=== PATIENT | female | born 1980 | race Caucasian/White ===

== ENCOUNTER → 2016-03-28 | Outpatient (REF) | payer MEDICAID ==
[2016-03-28 12:40] LABS: BASO % 1.1 % (0.0-1.0); EOS % 1.1 % (0.0-3.0); LYMPH % 42.7 % (24.0-44.0); MEAN CORPUSCULAR HEMOGLOBIN 29.3 pg (27.0-33.0); MEAN CORPUSCULAR HGB CONC 33.8 g/dl (32.0-36.5); MEAN CORPUSCULAR VOLUME 86.8 fl (80.0-96.0); MONO # 0.2 K/mm3 (0.0-0.8); MONO % 4.6 % (0.0-5.0); NEUTROPHILS # 2.2 K/mm3 (1.8-7.7); NEUTROPHILS % 48.9 % (36.0-66.0); RED CELL DISTRIBUTION WIDTH 14.7 % (11.5-14.5); WHITE BLOOD COUNT 4.4 K/mm3 (4.0-10.0)
== END ==
LOC: M LABDRWAD 12:15
PROVIDERS: ATTEND Obstetrics & Gynecology
DX: Z85.42 Personal history of malignant neoplasm of other parts of uterus (principal)

== ENCOUNTER → 2016-05-09 | Outpatient (REF) | payer MEDICAID | LOC: M SFHCADAM 13:39 | PROVIDERS: ATTEND Physician Assistant Medical | DX: E78.1 Pure hyperglyceridemia (principal); R73.01 Impaired fasting glucose; E03.9 Hypothyroidism, unspecified; Z53.9 Procedure and treatment not carried out, unspecified reason ==

== ENCOUNTER → 2016-05-10 | Outpatient (REF) | payer MEDICAID ==
[2016-05-10 13:55] LABS: ALBUMIN 3.7 GM/DL (3.2-5.2); ALBUMIN/GLOBULIN RATIO 1.28 (1.00-1.93); ALKALINE PHOSPHATASE 67 U/L (45-117); ALT/SGPT 50 U/L (12-78); ANION GAP 9 MEQ/L (8-16); AST/SGOT 29 U/L (15-37); BILIRUBIN,TOTAL 0.4 MG/DL (0.2-1.0); BLOOD UREA NITROGEN 12 MG/DL (7-18); CALCIUM LEVEL 8.9 MG/DL (8.5-10.1); CARBON DIOXIDE LEVEL 26 MEQ/L (21-32); CHLORIDE LEVEL 107 MEQ/L (98-107); CHOLESTEROL LEVEL 167 MG/DL (<200); CREATININE FOR GFR 0.77 MG/DL (0.55-1.02); GLOMERULAR FILTRATION RATE > 60.0 (>60); GLUCOSE, FASTING 127 MG/DL (70-105); POTASSIUM SERUM 4.3 MEQ/L (3.5-5.1); SODIUM LEVEL 142 MEQ/L (136-145); TOTAL PROTEIN 6.6 GM/DL (6.4-8.2); TRIGLYCERIDES LEVEL 442 MG/DL (<150)
[2016-05-10 14:04] LABS: BASO % 0.7 % (0.0-1.0); EOS # 0.1 K/mm3 (0.0-0.50); EOS % 2.8 % (0.0-3.0); LARGE UNSTAINED CELL # 0.1 K/mm3 (0.0-0.4); LARGE UNSTAINED CELL % 2.6 % (0.0-4.0); LYMPH # 1.5 K/mm3 (1.5-4.5); LYMPH % 41.6 % (24.0-44.0); MEAN CORPUSCULAR HEMOGLOBIN 29.5 pg (27.0-33.0); MEAN CORPUSCULAR HGB CONC 33.8 g/dl (32.0-36.5); MEAN CORPUSCULAR VOLUME 87.2 fl (80.0-96.0); MONO # 0.2 K/mm3 (0.0-0.8); MONO % 4.7 % (0.0-5.0); NEUTROPHILS # 1.7 K/mm3 (1.8-7.7); NEUTROPHILS % 47.6 % (36.0-66.0); PLATELET COUNT, AUTOMATED 208 k/mm3 (150-450); RED CELL DISTRIBUTION WIDTH 14.1 % (11.5-14.5); WHITE BLOOD COUNT 3.5 K/mm3 (4.0-10.0)
== END ==
LOC: M SFHCADAM 09:02
PROVIDERS: ATTEND Physician Assistant Medical
DX: E78.1 Pure hyperglyceridemia (principal); R73.01 Impaired fasting glucose; E03.9 Hypothyroidism, unspecified

== ENCOUNTER 2016-07-11 14:16 | Inpatient (IN) | payer MEDICAID ==
[~2016-07-11] VITALS: Ht 170.2 cm; Wt 141.9 kg
[2016-07-11] MEDS ORDERED: SIMV20TA2 (14:23)
[2016-07-11] MEDS ORDERED: LEVO112T2 (14:23)
[2016-07-11] MEDS ORDERED: ASPI81TA85 PO (14:23)
[2016-07-11] MEDS ORDERED: TRAZ100T4 (14:23)
[2016-07-11] MEDS ORDERED: ONDANSETRON 4MG/2ML VIAL (J2405) IV ONE (14:45)
[2016-07-11] MEDS ORDERED: NS 1,000 ML IV ONE ×2 (14:45→18:00)
[2016-07-11] MEDS ORDERED: KETOROLAC 30 MG/ML VIAL (J1885) IV ONE (14:45)
[2016-07-11] MEDS ORDERED: ACETAMINOPHEN 325 MG TAB PO ONE (14:45)
[2016-07-11 15:18] LABS: MEAN CORPUSCULAR HEMOGLOBIN 30.3 pg (27.0-33.0); MEAN CORPUSCULAR HGB CONC 34.2 g/dl (32.0-36.5); MEAN CORPUSCULAR VOLUME 88.5 fl (80.0-96.0); PLATELET COUNT, AUTOMATED 155 k/mm3 (150-450); RED CELL DISTRIBUTION WIDTH 14.2 % (11.5-14.5); WHITE BLOOD COUNT 3.6 K/mm3 (4.0-10.0)
[2016-07-11 15:32] LABS: ALBUMIN 3.7 GM/DL (3.2-5.2); ALBUMIN/GLOBULIN RATIO 1.09 (1.00-1.93); BILIRUBIN,DIRECT 0.1 MG/DL (0.0-0.2); BILIRUBIN,TOTAL 0.5 MG/DL (0.2-1.0); CALCIUM LEVEL 9.1 MG/DL (8.5-10.1); CREATININE FOR GFR 1.14 MG/DL (0.55-1.02); GLOMERULAR FILTRATION RATE 56.8 (>60); POTASSIUM SERUM 3.8 MEQ/L (3.5-5.1); TOTAL PROTEIN 7.1 GM/DL (6.4-8.2)
[2016-07-11 15:35] LABS: BANDS 1 % (< 11); BASOPHILS 1 % (0-4)
[2016-07-11] MEDS ORDERED: PIPERACILLIN/TAZOBACTAM SOD 3.375 GM in D5W MINI-BAG PLUS 50 ML IV ONE (16:00)
[2016-07-11] MEDS ORDERED: ISOVUE-370 76% 100ML VIAL (Q9967) As Ordered ONE (16:06)
--- NOTE | 2016-07-11 17:39 | REP ---
CT abdomen and pelvis with IV but without oral contrast: History: Vomiting, fever, abdominal pain. No comparison imaging. The patient is apparently status post hysterectomy and cholecystectomy. CT contrast dose: 100 mL of Isovue [address] findings: Digital preliminary banking management consulting manager radiograph shows clips in the right and left lower quadrant and right upper quadrant. There is a moderate S-shaped thoracolumbar rotoscoliotic curve. The bowel gas pattern is unremarkable. The lung bases are clear. The liver and the spleen are normal in size homogeneous in texture. No adrenal lesion is seen on either side. There is an accessory splenule anteriorly. The pancreas is unremarkable. No retroperitoneal mass or adenopathy is seen. There is moderate bilateral hydronephrosis right lobe greater than left. No upper tract stones are seen. Pelvic CT images demonstrate a large cystic mass arising in the central pelvis. This measures 21.8 cm greatest dimension x 14.7 cm x 14.0 cm in transverse dimensions. This is seen in the mid pelvis extending nearly to the umbilicus in the central abdomen. At its cranial edge there are bilateral smaller daughter cyst projecting on either side superiorly and lateral to this. There are several follicle type cystic areas in the right ovary along the right superior lateral aspect of the lesion. The lesion most likely has a left ovarian origin. The bladder is compressed downward and anteriorly. The ureters are dilated to the mid pelvis at the level of this lesion indicating that they are compressed as well. There is no visible ascites or intra-abdominal adenopathy. There are some slightly prominent inguinal lymph nodes noted bilaterally. The largest of these is on the right measuring 2.4 x 1.5 x 1.5 cm. No bony destructive lesion is seen. There is some degenerative change at the symphysis pubis. There is a bilateral L5 spondylolysis without spondylolisthesis. Impression: 21.8 cm cystic mass, likely arising from the left ovary producing bilateral moderate hydronephrosis. Smaller cystic changes are seen in the right ovary. No ascites seen. Borderline adenopathy in the inguinal lymph nodes. Scoliosis. Signed by Yusef Oropeza MD 07/11/2016 06:02 P
--- NOTE | 2016-07-11 18:56 | REP ---
Pelvic sonography: History: Cystic mass left ovary question torsion. Findings: Exam quality is markedly inhibited due to patient motion. Transabdominal scanning is performed. Transvaginal scanning could not be accomplished. A large cystic mass is confirmed although less well seen than on CT scanning. Normal ovarian tissue was very difficult to visualize. Uterus is surgically absent. The right ovary could not be seen sonographically. No free fluid is noted. Cyst measurements by ultrasound are proximally 28.7 x 15.7 x 11.7 cm. Doppler flow assessment is unsatisfactory technically. Impression: Technically unsatisfactory Doppler flow assessment. The right ovary could not be visualized. Exam quality inhibited by lack of patient cooperation and the size of the cystic lesion. Ultrasound dimensions of the cystic mass are 11.7 x 28.7 x 15.7 cm. Signed by Yusef Oropeza MD 07/11/2016 08:46 P
[2016-07-11] MEDS ORDERED: LEVO112T25 PO (20:17)
[2016-07-11] MEDS ORDERED: ASPI1TAB PO (20:17)
[2016-07-11] MEDS ORDERED: TRAZ100T4 PO (20:17)
[2016-07-11] MEDS ORDERED: SIMV20TA2 PO (20:17)
[2016-07-11 21:41] LABS: ERYTHROCYTE SEDIMENTATION RATE 15 mm/hr (0-20)
--- NOTE | 2016-07-11 21:49 | HPE ---
DATE OF ADMISSION: 07/11/2016 PRIMARY CARE PROVIDER: Danyell Santamaria PA-C HISTORY OF PRESENT ILLNESS: This patient is a 36-year-old female with a past medical history significant for autism, hypercholesterolemia, hypothyroidism, morbid obesity, impaired fasting sugars, cervical cancer status post hysterectomy, who was brought in to [facility] on 07/11/2016, by a family member for fever and vomiting. Patient is nonverbal, not able to answer questions or follow commands. Information was obtained from patient's sister. Patient's caregiver is her father. Per family member, patient was at her baseline yesterday. This morning, patient started having temperature of 100.4, patient also started having frequent vomiting, which is not normal for her, and patient was brought to [facility] for further evaluation. Not sure if patient has recent sick contact. Based on patient's behavior and expression, patient's family member thinks patient was in pain previously, not at the time of encounter, patient did not have pain. ALLERGIES: SULFA, OXYCODONE. PAST MEDICAL HISTORY: 1. Autistic disorder, patient is nonverbal. 2. Hyperlipidemia. 3. Hypothyroidism. 4. Morbid obesity. 5. Impaired fasting glucose. 6. Cervical cancer, resulting in hysterectomy. PAST SURGICAL HISTORY: 1. Hysterectomy in 1999. 2. Cholecystectomy in 2009. SOCIAL HISTORY: No smoking. No alcohol use. No recreational drug use. Patient lives with her father and the father is the caregiver. REVIEW OF SYSTEMS: Unable to obtain due to patient's baseline mental status. Per family member, patient did experience fever, no chills. No sign of difficulty breathing or chest pain. Patient did have some pain, possibly from the abdomen, but it is intermittent, resolved spontaneously. Patient also noted to have worsening swelling and redness of the right lower extremity. OBJECTIVE: VITAL SIGNS: Temperature 99.9, pulse 96, respirations 20, blood pressure 104/60, pulse oximetry 96% in room air. GENERAL: Patient is nonverbal. Patient is awake, alert, not able to answer questions or follow commands. HEENT: Poor oral dentition. Otherwise, normocephalic, atraumatic. Extraocular motors grossly intact. CARDIOVASCULAR: Positive S1, S2, regular rate. LUNGS: Clear to auscultation bilaterally. ABDOMEN: Morbidly obese. Soft, nontender, nondistended. Bowel sounds present. EXTREMITIES: There is some erythema and swelling and warmth at the right anterior douglas. Patient grimaces when pushing on the right douglas. No lower extremity edema bilaterally. No sign of cyanosis. LABORATORY DATA: WBC 3.6, hemoglobin 13.6, hematocrit 39.7, platelet count 155. Sodium 139, potassium 3.8, chloride 104, carbon dioxide 25, BUN 13, creatinine 1.14, GFR is 56.8, fasting glucose 124, lactic acid 3.4, calcium 9.1, total bilirubin 0.5, direct bilirubin 0.1, AST 30, ALT 46, alkaline phosphatase 72, total protein 7.1, albumin 3.7, lipase 165. Urinalysis is negative. Microbiology: Blood cultures pending times two sets. Urine culture is pending. IMAGING STUDIES: CT abdomen and pelvis with contrast shows 21.8 cm cystic mass, most likely arising from the left ovary producing bilateral moderate hydronephrosis. Smaller cystic changes are seen in the right ovary. No ascites seen. Pelvic ultrasound showed technically unsatisfactory Doppler flow assessment. The right ovary could not be visualized. ASSESSMENT AND PLAN: 1. Nausea and vomiting with fever. Patient will be admitted to medical/surgical floor under inpatient status. We are still looking for source of patient's symptoms. Patient does have cellulitis of right lower extremity. Patient also has ovarian cyst-like mass. Patient is started on Teflaro for the cellulitis. Patient will be on fluid support. Patient will have Tylenol for fever. Obstetrics/gynecology (MANAGER INVENTORY CONTROL) will be consulted. At this moment, patient will follow with inflammatory markers. 2. Left ovarian cystic mass. CT abdomen and pelvis shows the size is 21.8 cm. Will consult MANAGER INVENTORY CONTROL. 3. Bilateral moderate hydronephrosis. Patient started having acute kidney injury most likely secondary to the obstruction from the ovarian cystic-like mass. Currently patient's creatinine is 1.14, GFR is 56.8. At baseline, patient has normal renal function. 4. History of impaired glucose. Patient will be on consistent carbohydrate diet. Patient has an A1c of 6.3 in May 2016. 5. History of cervical cancer status post hysterectomy. 6. Morbid obesity. 7. Hypothyroidism. Patient is on Synthroid. Will follow with thyroid stimulating hormone (TSH) in the morning. 8. Hyperlipidemia. Patient is on simvastatin. 9. Autism, causing patient to be nonverbal. No mental capacity. Not able to follow commands. 10. Deep venous thrombosis (DVT) prophylaxis. Patient is on heparin.
[2016-07-11 22:35] VITALS: BP 130/85
[2016-07-11] MEDS: HEPARIN SOD (PORCINE) 5000 UNITS/ML VIAL SC SCH (23:06)
[2016-07-11] MEDS: NS 1,000 ML IV SCH (23:06)
[2016-07-11] MEDS: SIMVASTATIN 20 MG TAB PO SCH (23:06)
[2016-07-11] MEDS: traZODone 100 MG TAB PO SCH (23:06)
[2016-07-11] MEDS: CEFTAROLINE FOSAMIL 600 MG in D5W MINI-BAG PLUS 50 ML IV SCH (23:07)
[2016-07-12] MEDS: ACETAMINOPHEN TAB 650MG DOSE (2X325MG) PO PRN ×3 (01:45→18:16)
[2016-07-12] MEDS ORDERED: ACETAMINOPHEN TAB 650MG DOSE (2X325MG) PO ONE (03:30)
[2016-07-12 05:05] VITALS: BP 119/58
[2016-07-12] MEDS: LEVOTHYROXINE 0.112 MG TAB (112 MCG) PO SCH (06:17)
[2016-07-12] MEDS: HEPARIN SOD (PORCINE) 5000 UNITS/ML VIAL SC SCH ×3 (06:18→21:50)
[2016-07-12 06:27] LABS: MEAN CORPUSCULAR HEMOGLOBIN 31.2 pg (27.0-33.0); MEAN CORPUSCULAR HGB CONC 34.1 g/dl (32.0-36.5); MEAN CORPUSCULAR VOLUME 91.6 fl (80.0-96.0); RED CELL DISTRIBUTION WIDTH 14.4 % (11.5-14.5); WHITE BLOOD COUNT 4.6 K/mm3 (4.0-10.0)
[2016-07-12] MEDS: NS 1,000 ML IV SCH ×2 (06:38→18:51)
[2016-07-12 07:01] LABS: CALCIUM LEVEL 7.7 MG/DL (8.5-10.1); CREATININE FOR GFR 1.28 MG/DL (0.55-1.02); GLOMERULAR FILTRATION RATE 49.7 (>60)
[2016-07-12] MEDS: ASPIRIN 81 MG ENTERIC TAB PO SCH (09:26)
--- NOTE | 2016-07-12 09:48 | IPNPDOC ---
Subjective Date Seen The patient was seen on 07/12/16. Subjective Chief Complaint/HPI The patient is a 36-year-old female admitted with a reason for visit of Ovarian Mass, Left; Vomiting. Events since last encounter Initially brought in to ED for RLE cellulitis and vomiting. Found to have large LEFT ovarian cystic mass. OBGYN consult with Dr. Fraser pending. General: Reports: ROS Unobtainable, Other Symptoms (patient is autistic and non -verbal) Constitutional: Reports: Fever Skin: Reports: Rash, Other (RLE cellulitis with erythema and warmth), Denies: Lesions, Breakdown Pulmonary: Denies: Dyspnea, Cough Gastrointestinal: Reports: Vomiting, Other Symptoms (decreased po intake) Genitourinary: Denies: Frequency Psych: Reports: Mood Normal (no change in mood per father. ) Objective Physical Examination General Exam: Positive: Alert, No Acute Distress Neck Exam: Positive: Supple, Negative: JVD, thyromegaly Chest Exam: Positive: Clear to auscultation, Normal air movement Heart Exam: Positive: Rate Normal, Regular Rhythm, Normal S1, Normal S2, Negative: Murmurs, Rubs Abdomen Exam: Positive: Normal bowel sounds, Soft, Negative: Tenderness, Hepatospenomegaly Skin Exam: Positive: Other skin issue (RLE with erythema, warmth, tenderness and swelling. ), Negative: Rash, Breakdown Psych Exam: Positive: Mental status NL, Mood NL, Oriented x 3 Assessment /Plan Problems (1) Sepsis Status: Acute Problem Text: Ceftaroline day #2. lactic acid trending down. IVF maintained. + fevers. no elevated WBC. Will obtain imaging of foot and ankle to eval source. + blood cultures: gram + cocci in clusters. Father states will not stay still long enough for MRI. (2) Cellulitis of right lower leg Status: Acute Problem Text: Will obtain imaging of foot and ankle to eval source. + blood cultures: gram + cocci in clusters. Father states will not stay still long enough for MRI. D/W Dr Cardona. He does not believe the metallic FB is likely related to the leg infection. More harm than benefit likely by surgical exploration to retrieve. (3) Ovarian mass, left Status: Acute Problem Specific Plan: Consult Specialist Problem Text: IMAGING SYSTEM ADMINISTRATOR eval pending. (4) Hydronephrosis Problem Text: secondary to ovarian mass per CT report (5) Vomiting Status: Acute Problem Specific Plan: Monitor Clinically (6) Impaired fasting glucose Problem Text: Hgba1c of 6.3 noted in 05/2016 (7) Hypothyroidism Status: Chronic Response to Treatment: Stable Problem Text: stable TSH (8) History of cervical cancer Status: Chronic Problem Text: s/p hysterectomy after abnormal pap smear in 2009. Hx of uterine fibroids. Plan/VTE VTE Prophylaxis Ordered?: Yes (Heparin) Plan IVF: Continue Diagnostics: MRI (MRI of leg might be helpful but would require sedation so not ordered at this time depending on clinical course.) VS, I&O, 24H, Fishbone Vital Signs/I&O Vital Signs Date Time Temp Pulse Resp B/P (MAP) Pulse Ox O2 Delivery O2 Flow Rate FiO2 07/12/16 05:05 100.7 82 18 119/58 (78) 95 Room Air I&O- Last 24 Hours up to 6 AM 07/12/16 06:00 Intake Total 390 ml Output Total 130 ml Balance 260 ml Laboratory Data 24H LABS Laboratory Tests 2 07/11/16 14:56: Neutrophils 86H, Band Neutrophils 1, Lymphocytes (Manual) 8L, Monocytes (Manual ) 2, Basophils (Manual) 1, Metamyelocytes 1H, Atypical Lymphocytes 1, Platelet Estimate NORMAL, Red Blood Cell Morphology NORMAL, Erythrocyte Sedimentation Rate 15, Anion Gap 10, Glomerular Filtration Rate 56.8L, Lactic Acid Level 4.2*H , Calcium Level 9.1, Aspartate Amino Transf (AST/SGOT) 30, Alanine Aminotransferase (ALT/SGPT) 46, Alkaline Phosphatase 72, Total Bilirubin 0.5, Direct Bilirubin 0.1, C-Reactive Protein, Quantitative 1.37H, Total Protein 7.1 , Albumin 3.7, Albumin/Globulin Ratio 1.09, Lipase 165 07/11/16 16:35: Urine Appearance CLEAR, Urine Color YELLOW, Urine pH 7.0, Urine Specific [place] 1.010, Urine Protein NEGATIVE, Urine Glucose (UA) NEGATIVE, Urine Ketones NEGATIVE, Urine Urobilinogen 0.2, Urine Bilirubin NEGATIVE, Urine Leukocyte Esterase NEGATIVE, Urine Blood NEGATIVE, Urine Nitrite NEGATIVE, Urine WBC (Auto) 1, Urine RBC (Auto) 1, Urine Hyaline Casts (Auto) 0, Urine Bacteria (Auto) 1+H, Urine Squamous Epithelial Cells 1, Urine Sperm (Auto) 07/11/16 19:22: Lactic Acid Followup at 4 Hours 3.4*H 07/12/16 06:07: Anion Gap 8, Glomerular Filtration Rate 49.7L, Calcium Level 7.7#L, Blood Urea Nitrogen 16, Creatinine 1.28H, Sodium Level 140, Potassium Level 4.0, Chloride Level 108H, Carbon Dioxide Level 24, Thyroid Stimulating Hormone (TSH) 0.413 CBC/BMP Laboratory Tests 07/11/16 14:56 Red Blood Count 4.49, Mean Corpuscular Volume 88.5, Mean Corpuscular Hemoglobin 30.3, Mean Corpuscular Hemoglobin Concent 34.2, Red Cell Distribution Width 14.2 07/12/16 06:07 Red Blood Count 4.20, Mean Corpuscular Volume 91.6, Mean Corpuscular Hemoglobin 31.2, Mean Corpuscular Hemoglobin Concent 34.1, Red Cell Distribution Width 14.4 , Calcium Level 7.7 #L Microbiology Microbiology 07/11/16 Blood Culture - Preliminary, Resulted 07/11/16 Blood Culture - Preliminary, Resulted 07/11/16 Urine Culture, Received Pending Ruthie Lagunas July 12, 2016 09:48 Ramana Morales MD July 12, 2016 12:45
--- NOTE | 2016-07-12 10:01 | REP ---
Right ankle series: Four views. History: Cellulitis and swelling. Right foot and ankle pain. Findings: Four views of the right ankle demonstrate diffuse swelling of the subcutaneous soft tissues of the distal calf and ankle. Ankle mortise is intact. No bony erosive changes seen. There is Achilles and plantar calcaneal spurring. Impression: Diffuse soft tissue swelling. Heel spurs. No acute abnormality. Signed by Yusef Oropeza MD 07/12/2016 10:27 A
--- NOTE | 2016-07-12 10:02 | REP ---
RIGHT FOOT SERIES: Four views. HISTORY: Cellulitis and swelling. Pain. FINDINGS: Four views right foot show overall normal mineralization. There is diffuse soft tissue swelling fairly marked over the dorsum of the forefoot and midfoot. Achilles and plantar calcaneal spurring is noted. There is a very thin wire-like metallic foreign body in the volar soft tissues of the midfoot measuring 5 mm in greatest dimension. No soft tissue gas is seen. There is extensive vascular calcification including the intermetatarsal and interdigital arteries. Osteoarthritis is seen with spurring at the first MTP joint. IMPRESSION: 1. Diffuse marked soft tissue swelling. No soft tissue gas seen. 2. Heel spurs and first MTP joint spurring. 3. 5 mm wire-like metallic foreign body in the volar soft tissues of the midfoot. Signed by Yusef Oropeza MD 07/12/2016 10:26 A
[2016-07-12] MEDS: CEFTAROLINE FOSAMIL 600 MG in D5W MINI-BAG PLUS 50 ML IV SCH ×2 (12:17→23:48)
[2016-07-12 14:00] VITALS: BP 149/84
[2016-07-12 18:24] VITALS: BP 152/60
[2016-07-12] MEDS: IBUPROFEN 400 MG TAB PO PRN (18:49)
[2016-07-12] MEDS: SIMVASTATIN 20 MG TAB PO SCH (21:49)
[2016-07-12] MEDS: traZODone 100 MG TAB PO SCH (21:49)
[2016-07-12 22:00] VITALS: BP 100/52
--- NOTE | 2016-07-12 22:07 | CR ---
DATE OF CONSULTATION: 07/12/2016 REASON FOR CONSULTATION: Right lower extremity cellulitis with suspected foreign body to right foot. Karen Loya is a 36-year-old nonverbal female who was admitted to the hospital on 07/11/2016 due to fevers and vomiting. She was noted to have swelling and redness to her right leg. She has been started on intravenous (IV) antibiotics. An x-ray was taken, which showed small metallic foreign body to the right foot, for which I was consulted. Patient is nonverbal, so history is obtained via patient's sister, who was present, and chart review. PAST MEDICAL HISTORY: Significant for: 1. Autism. 2. Hyperlipidemia. 3. Hypothyroidism. 4. Morbid obesity. 5. Impaired fasting glucose. 6. Cervical cancer. PAST SURGICAL HISTORY: 1. Hysterectomy. 2. Cholecystectomy. ALLERGIES: SULFA and OXYCODONE. SOCIAL HISTORY: Negative for smoking and alcohol use. REVIEW OF SYSTEMS: Positive for fevers. VITAL SIGNS: Maximal temperature from admission is 104.1, current temperature 99.4. Vital signs are stable. Labs are reviewed. White blood cell count is 4.6. ESR is 15. Lactic acid highest was 4.2, most recent was 3.4. Creatinine is 1.28, GFR is 49.7. Lower extremity examination: There is moderate edema to both lower extremities, more significant on the right side. There is erythema extending from the ankle to below the knee with some blistering and serous drainage noted. There is no erythema to the plantar foot. There are no open sores noted to this area. No crepitance is palpated. No foreign object is palpated. No entry site is noted. There is pain most reproducible to the anterior leg. No significant pain is produced with palpation of the plantar foot. ASSESSMENT: A 36-year-old female with right leg cellulitis. Images are reviewed. There is noted edema to the foot and ankle, most present dorsally and anteriorly. There is a small, apparently metallic 5 mm object noted to the plantar lateral mid foot. This appears to be approximately 1 cm deep to the skin. PLAN: Would continue current antibiotics, pending speciation. The blood cultures are positive for gram-positive cocci in pairs and chains. At present she is receiving ceftaroline. Compression warps for right leg is ordered as well as elevation. Patient does appear to be unwilling to stay in bed, so would keep her foot elevated with a chair while she is seated. At this time would not recommend trying to remove foreign body, as it does not seem apparently the cause for this infection, and there is good chance of not being able to identify it in the operating room. Thank you for consultation. Will follow.
[2016-07-13] MEDS: NS 1,000 ML IV SCH ×2 (05:50→12:43)
[2016-07-13] MEDS: LEVOTHYROXINE 0.112 MG TAB (112 MCG) PO SCH (05:50)
[2016-07-13] MEDS: HEPARIN SOD (PORCINE) 5000 UNITS/ML VIAL SC SCH (05:51)
[2016-07-13 06:00] VITALS: BP 102/60
[2016-07-13 06:16] LABS: MEAN CORPUSCULAR HEMOGLOBIN 30.4 pg (27.0-33.0); MEAN CORPUSCULAR HGB CONC 33.8 g/dl (32.0-36.5); MEAN CORPUSCULAR VOLUME 89.8 fl (80.0-96.0); RED CELL DISTRIBUTION WIDTH 14.3 % (11.5-14.5); WHITE BLOOD COUNT 2.7 K/mm3 (4.0-10.0)
[2016-07-13 06:20] LABS: ANION GAP 12 MEQ/L (8-16); BLOOD UREA NITROGEN 13 MG/DL (7-18); CALCIUM LEVEL 7.1 MG/DL (8.5-10.1); CARBON DIOXIDE LEVEL 20 MEQ/L (21-32); CHLORIDE LEVEL 108 MEQ/L (98-107); CREATININE FOR GFR 0.98 MG/DL (0.55-1.02); GLOMERULAR FILTRATION RATE > 60.0 (>60); GLUCOSE, FASTING 138 MG/DL (70-105); POTASSIUM SERUM 3.9 MEQ/L (3.5-5.1); SODIUM LEVEL 140 MEQ/L (136-145)
[2016-07-13] MEDS: ASPIRIN 81 MG ENTERIC TAB PO SCH (09:55)
[2016-07-13] MEDS: CEFTAROLINE FOSAMIL 600 MG in D5W MINI-BAG PLUS 50 ML IV SCH ×2 (12:28→23:49)
[2016-07-13] MEDS: ACETAMINOPHEN TAB 650MG DOSE (2X325MG) PO PRN (12:28)
[2016-07-13 12:40] VITALS: BP 139/72
[2016-07-13] MEDS: IBUPROFEN 400 MG TAB PO PRN ×2 (13:41→23:48)
[2016-07-13 14:00] VITALS: BP 98/53
[2016-07-13] MEDS: SIMVASTATIN 20 MG TAB PO SCH (20:41)
[2016-07-13] MEDS: traZODone 100 MG TAB PO SCH (20:41)
[2016-07-13 22:00] VITALS: BP 122/76
--- NOTE | 2016-07-14 00:57 | IPNPDOC ---
Subjective Date Seen The patient was seen on 07/14/16. Subjective Chief Complaint/HPI The patient is a 36-year-old female admitted with a reason for visit of Ovarian Mass, Left; Vomiting. Events since last encounter Seen with father present. Patient was seen three times on 07/13 -- for a wound check when the dressing was changed, for a regular exam, and when she became febrile again. Father felt that her leg was improving slowly. General: Reports: ROS Unobtainable Objective Physical Examination General Exam: Positive: Alert, No Acute Distress Neck Exam: Positive: Supple, Negative: JVD, thyromegaly Chest Exam: Positive: Clear to auscultation, Normal air movement Heart Exam: Positive: Rate Normal, Regular Rhythm, Normal S1, Normal S2, Negative: Murmurs, Rubs Abdomen Exam: Positive: Normal bowel sounds, Soft, Negative: Tenderness, Hepatospenomegaly Extremity Exam: Positive: Edema (R > L) Skin Exam: Positive: Other skin issue (RLE with erythema, warmth, tenderness and swelling. ), Negative: Rash, Breakdown Psych Exam: Positive: Mental status NL, Mood NL, Oriented x 3 Assessment /Plan Problems (1) Sepsis Status: Acute Problem Text: 07/13 -- patient continues on ceftaroline. She continues to spike fevers. Next set of blood cultures is negative. Will obtain echocardiogram if patient is febrile again tomorrow. Ceftaroline day #2. lactic acid trending down. IVF maintained. + fevers. no elevated WBC. Will obtain imaging of foot and ankle to eval source. + blood cultures: gram + cocci in clusters. Father states will not stay still long enough for MRI. (2) Cellulitis of right lower leg Status: Acute Problem Text: Will obtain imaging of foot and ankle to eval source. + blood cultures: gram + cocci in clusters. Father states will not stay still long enough for MRI. D/W Dr Cardona. He does not believe the metallic FB is likely related to the leg infection. More harm than benefit likely by surgical exploration to retrieve. (3) Ovarian mass, left Status: Acute Problem Specific Plan: Consult Specialist Problem Text: MEDICAL DATA ANALYST eval pending. (4) Hydronephrosis Problem Text: secondary to ovarian mass per CT report (5) Vomiting Status: Acute Problem Specific Plan: Monitor Clinically (6) Impaired fasting glucose Problem Text: Hgba1c of 6.3 noted in 05/2016 (7) Hypothyroidism Status: Chronic Response to Treatment: Stable Problem Text: stable TSH (8) History of cervical cancer Status: Chronic Problem Text: s/p hysterectomy after abnormal pap smear in 2009. Hx of uterine fibroids. Plan/VTE VTE Prophylaxis Ordered?: Yes (Heparin) Plan IVF: Continue Diagnostics: MRI (MRI of leg might be helpful but would require sedation so not ordered at this time depending on clinical course.) VS, I&O, 24H, Fishbone Vital Signs/I&O Vital Signs Date Time Temp Pulse Resp B/P (MAP) Pulse Ox O2 Delivery O2 Flow Rate FiO2 07/13/16 22:00 97.9 85 19 122/76 (91) 90 Room Air I&O- Last 24 Hours up to 6 AM 07/14/16 06:00 Intake Total 1990 ml Output Total 200 ml Balance 1790 ml Laboratory Data 24H LABS Laboratory Tests 2 07/13/16 05:30: Anion Gap 12, Glomerular Filtration Rate > 60.0, Blood Urea Nitrogen 13, Creatinine 0.98, Sodium Level 140, Potassium Level 3.9, Chloride Level 108H, Carbon Dioxide Level 20L, Calcium Level 7.1L 07/13/16 13:41: CBC/BMP Laboratory Tests 07/13/16 05:30 Red Blood Count 4.19, Mean Corpuscular Volume 89.8, Mean Corpuscular Hemoglobin 30.4, Mean Corpuscular Hemoglobin Concent 33.8, Red Cell Distribution Width 14.3 , Calcium Level 7.1 L Microbiology Microbiology 07/12/16 Blood Culture - Preliminary, Resulted No growth after 24 hours . All specim... 07/12/16 Blood Culture - Preliminary, Resulted No growth after 24 hours . All specim... 07/11/16 Blood Culture - Preliminary, Resulted Streptococcus Group G 07/11/16 Blood Culture - Preliminary, Resulted Streptococcus Group G 07/11/16 Urine Culture - Final, Complete SAUL ROSALES DO July 14, 2016 00:56
[2016-07-14] MEDS: ACETAMINOPHEN TAB 650MG DOSE (2X325MG) PO PRN (01:43)
[2016-07-14] MEDS: NS 1,000 ML IV SCH ×3 (03:14→13:33)
[2016-07-14] MEDS: LEVOTHYROXINE 0.112 MG TAB (112 MCG) PO SCH (05:39)
[2016-07-14 05:58] LABS: MEAN CORPUSCULAR HEMOGLOBIN 30.9 pg (27.0-33.0); MEAN CORPUSCULAR HGB CONC 34.8 g/dl (32.0-36.5); MEAN CORPUSCULAR VOLUME 88.7 fl (80.0-96.0); RED CELL DISTRIBUTION WIDTH 14.2 % (11.5-14.5); WHITE BLOOD COUNT 2.1 K/mm3 (4.0-10.0)
[2016-07-14 06:00] VITALS: BP 107/53
[2016-07-14 06:15] LABS: ANION GAP 7 MEQ/L (8-16); BLOOD UREA NITROGEN 10 MG/DL (7-18); CALCIUM LEVEL 7.8 MG/DL (8.5-10.1); CARBON DIOXIDE LEVEL 22 MEQ/L (21-32); CHLORIDE LEVEL 110 MEQ/L (98-107); CREATININE FOR GFR 0.94 MG/DL (0.55-1.02); GLOMERULAR FILTRATION RATE > 60.0 (>60); GLUCOSE, FASTING 158 MG/DL (70-105); POTASSIUM SERUM 3.8 MEQ/L (3.5-5.1); SODIUM LEVEL 139 MEQ/L (136-145)
--- NOTE | 2016-07-14 06:54 | REP ---
CHEST, TWO VIEWS: Two views of the chest are performed and compared to prior study of 05/31/2014. Chronic interstitial opacities are seen in the lower lung zones without evidence of acute infiltrate. Cardiac silhouette appears prominent. Mediastinal silhouette is unchanged. There is curvature of the thoracic spine convex to the right. IMPRESSION: Chronic interstitial changes. No evidence of acute infiltrate. Signed by Jonathan Shah MD 07/14/2016 07:49 P
[2016-07-14] MEDS: IBUPROFEN 400 MG TAB PO PRN ×2 (09:01→19:23)
[2016-07-14] MEDS: ASPIRIN 81 MG ENTERIC TAB PO SCH (09:01)
[2016-07-14 11:26] LABS: REASON FOR REVIEW COMPREHENSIVE REVIEW
[2016-07-14] MEDS ORDERED: cefTRIAXone SOD 1 GM in D5W MINI-BAG PLUS 50 ML IV SCH (12:00)
[2016-07-14 14:00] VITALS: BP 142/68
[2016-07-14 14:04] LABS: INR 0.96
[2016-07-14] MEDS ORDERED: PROMETHAZINE 25 MG TAB PO PRN (15:30)
[2016-07-14] MEDS ORDERED: ISOVUE-370 76% 100ML VIAL (Q9967) As Ordered ONE (16:07)
[2016-07-14] MEDS: PENICILLIN G POTASSIUM IV 2.5 MU in D5W 100 ML IV SCH (17:27)
[2016-07-14] MEDS: EUCERIN 120GM CREAM EXT SCH (20:59)
[2016-07-14] MEDS: SIMVASTATIN 20 MG TAB PO SCH (21:00)
[2016-07-14] MEDS: traZODone 100 MG TAB PO SCH (21:00)
[2016-07-14] MEDS: MICONAZOLE 2 % POWDER (DESENEX) TOP SCH (21:00)
[2016-07-14 22:00] VITALS: BP 127/79
--- NOTE | 2016-07-14 22:22 | IPNPDOC ---
Subjective Date Seen The patient was seen on 07/14/16. Subjective Chief Complaint/HPI The patient is a 36-year-old female admitted with a reason for visit of Ovarian Mass, Left; Vomiting. Events since last encounter Patient continues to develop fevers. Father feels that when afebrile she is at close to her baseline behavior. Her RLE looks worse than yesterday, and father feels that she is more uncomfortable when walking on it to the bathroom. General: Reports: ROS Unobtainable Objective Physical Examination General Exam: Positive: Alert, No Acute Distress Neck Exam: Positive: Supple, Negative: JVD, thyromegaly Chest Exam: Positive: Clear to auscultation, Normal air movement Heart Exam: Positive: Rate Normal, Regular Rhythm, Normal S1, Normal S2, Negative: Murmurs, Rubs Abdomen Exam: Positive: Normal bowel sounds, Soft, Negative: Tenderness, Hepatospenomegaly Extremity Exam: Positive: Edema (R > L) Skin Exam: Positive: Other skin issue (RLE with erythema, warmth, tenderness and swelling. Area of erythema now extends to the thigh. Perhaps the foot is less erythematous than yesterday.), Negative: Rash, Breakdown Psych Exam: Positive: Mood NL Assessment /Plan Problems (1) Sepsis Status: Acute Problem Text: 07/14 -- Echo ordered. Antibiotic susceptibilities available, and I changed to ceftriaxone. Consulted Dr. Lombardo, who recommended penicillin, which I ordered. Later in the evening I got a call that IV access was lost and nursing was struggling to obtain another line. As she had received a dose of ceftriaxone, I stated that it was OK to wait until day team was available to try and reestablish access. Nursing requested a PICC line, and I certainly don' t think that is a good idea until we have echo results; would prefer to avoid if we can get a peripheral IV. 07/13 -- patient continues on ceftaroline. She continues to spike fevers. Next set of blood cultures is negative. Will obtain echocardiogram if patient is febrile again tomorrow. Ceftaroline day #2. lactic acid trending down. IVF maintained. + fevers. no elevated WBC. Will obtain imaging of foot and ankle to eval source. + blood cultures: gram + cocci in clusters. Father states will not stay still long enough for MRI. (2) Cellulitis of right lower leg Status: Acute Problem Text: 07/14 -- Discussed with Dr. Lombardo, who is consulted. CT of lower extremity ordered. Will obtain imaging of foot and ankle to eval source. + blood cultures: gram + cocci in clusters. Father states will not stay still long enough for MRI. D/W Dr Cardona. He does not believe the metallic FB is likely related to the leg infection. More harm than benefit likely by surgical exploration to retrieve. (3) Ovarian mass, left Status: Acute Problem Specific Plan: Consult Specialist Problem Text: DIRECTOR CORPORATE eval pending. (4) Hydronephrosis Problem Text: secondary to ovarian mass per CT report (5) Vomiting Status: Acute Problem Specific Plan: Monitor Clinically (6) Impaired fasting glucose Problem Text: Hgba1c of 6.3 noted in 05/2016 (7) Hypothyroidism Status: Chronic Response to Treatment: Stable Problem Text: stable TSH (8) History of cervical cancer Status: Chronic Problem Text: s/p hysterectomy after abnormal pap smear in 2009. Hx of uterine fibroids. (9) Pancytopenia Problem Text: 07/14 -- peripheral smear and LDH ordered; echo pending; aPTT and PT both within normal limits. Anti-heparin antibodies ordered yesterday. This may be a side effect of Teflaro (medication changed this a.m.) Plan/VTE VTE Prophylaxis Ordered?: Yes (Heparin) Plan IVF: Continue Diagnostics: MRI (MRI of leg might be helpful but would require sedation so not ordered at this time depending on clinical course.) VS, I&O, 24H, Fishbone Vital Signs/I&O Vital Signs Date Time Temp Pulse Resp B/P (MAP) Pulse Ox O2 Delivery O2 Flow Rate FiO2 07/14/16 19:36 102.5 07/14/16 14:00 85 18 142/68 (92) 95 Room Air I&O- Last 24 Hours up to 6 AM 07/14/16 06:00 Intake Total 3480 ml Output Total 500 ml Balance 2980 ml Laboratory Data 24H LABS Laboratory Tests 2 07/14/16 05:26: Differential Slide Review Report, Differential Pathologist's Review COMPREHENSIVE REVIEW, Peripheral Blood Smear Path Consult PERIPHERAL SMEAR, Anion Gap 7L, Glomerular Filtration Rate > 60.0, Blood Urea Nitrogen 10, Creatinine 0.94, Sodium Level 139, Potassium Level 3.8, Chloride Level 110H, Carbon Dioxide Level 22, Calcium Level 7.8L, Lactate Dehydrogenase 542H, C- Reactive Protein, Quantitative 24.90H 07/14/16 13:30: Prothrombin Time 12.9, Prothromb Time International Ratio 0.96, Activated Partial Thromboplast Time 28.9 07/14/16 14:05: Urine Appearance HAZY, Urine Color MONALISA, Urine pH 5.0, Urine Specific [place] 1.024, Urine Protein 2+H, Urine Glucose (UA) 3+H, Urine Ketones NEGATIVE, Urine Urobilinogen 2.0H, Urine Bilirubin NEGATIVE, Urine Leukocyte Esterase NEGATIVE, Urine Blood 1+H, Urine Nitrite NEGATIVE, Urine WBC (Auto) 9H, Urine RBC (Auto) 4H, Urine Hyaline Casts (Auto) 0, Urine Bacteria (Auto) NEGATIVE, Urine Squamous Epithelial Cells 2, Urine Amorphous Sediment SMALLH, Urine Mucus (Auto ) SMALL, Urine Sperm (Auto) CBC/BMP Laboratory Tests 07/14/16 05:26 Red Blood Count 3.63 L, Mean Corpuscular Volume 88.7, Mean Corpuscular Hemoglobin 30.9, Mean Corpuscular Hemoglobin Concent 34.8, Red Cell Distribution Width 14.2, Calcium Level 7.8 L Microbiology Microbiology 07/12/16 Blood Culture - Preliminary, Resulted No Growth after 48 hours. All Specime... 07/12/16 Blood Culture - Preliminary, Resulted No Growth after 48 hours. All Specime... 07/11/16 Blood Culture - Final, Complete Streptococcus Group G 07/11/16 Blood Culture - Final, Complete Streptococcus Group G 07/14/16 Urine Culture, Received Pending 07/11/16 Urine Culture - Final, Complete SAUL ROSALES DO July 14, 2016 22:22
--- NOTE | 2016-07-15 04:00 | CR ---
DATE OF CONSULTATION: 07/14/2016 I was asked to consult by Dr. Anne for evaluation of right lower extremity cellulitis, with persistent fever in spite of 3 days of intravenous (IV) antibiotics. HISTORY OF PRESENT ILLNESS: Karen is a 36-year-old autistic nonverbal female, who was admitted to the hospital on 07/11 with fever, nausea, vomiting and right lower extremity swelling. The patient had a small ulceration on the leg that had been taken care of by her father. She started having fever the day of admission and was brought in. She was started on IV ceftaroline. According to Dr. Anne, the redness continued to worsen. She has fevers up to 103. According to her sister, she is doing better. She is eating better. She is not walking currently on that leg because she seems to be in pain, but does not complain much. Her appetite was 100% this morning. She had a good breakfast. She also was noted to have a large ovarian mass measuring about 20 cm. She had a hysterectomy over 13 years ago. PAST MEDICAL HISTORY: 1. Autism. 2. Nonverbal. 3. Hyperlipidemia. 4. Hypothyroidism. 5. Morbid obesity. 6. Impaired glucose tolerance. 7. Cervical cancer status post hysterectomy. PAST SURGICAL HISTORY: 1. Hysterectomy. 2. Cholecystectomy. ALLERGIES: SULFA and OXYCODONE. SOCIAL HISTORY: She lives with her father. She has three siblings. She is the oldest and she has a supportive family. She does not smoke or use alcohol. REVIEW OF SYSTEMS: She has fevers. Nausea and vomiting seem to have resolved. She seems to have pain in that leg. Otherwise she looks pretty healthy. PHYSICAL EXAMINATION: Temperature was 101.4 at 2 a.m., 103.4 yesterday. Currently temperature is 97.7, pulse 85, respirations 18, blood pressure 142/68, oxygen saturation 95% on room air. Heart: Normal S1, S2. No murmurs, rubs or gallops. Lungs are clear. No wheezes, rales or rhonchi. Abdomen: Soft, nontender, obese. Extremities: Right lower extremity +2 pitting edema, erythema with small ulcerations on the anterior aspect of the douglas. There is no purulent discharge. Most of the discharge is serous. She has onychomycoses of all toes. She has tenia pedis and very dry scaly feet. Knee and hip range of motion are normal, as well as ankle. It did not seem like there is any joint involvement. LABORATORY DATA: White count is 2.1, hemoglobin 11.2, hematocrit 32.2, platelets 90. ESR on admission was 15. Sodium 139, potassium 3.8, chloride 110, bicarbonate 22, BUN 10, creatinine 0.94, glucose 158, calcium 7.8, lactic acid on admission was 3.4, LDH 542, CRP 24.9, CA antigen was less than 0.5, TSH 0.413. Blood cultures were positive for group G Streptococcus on 07/11, and 07/12 blood cultures were negative. Urine culture was negative. IMAGING STUDIES: Chest x-ray done 07/13, chronic interstitial changes with no acute infiltrate. Ankle x-ray, foot x-ray shows diffuse soft tissue swelling, heel spurs. Pelvic ultrasound showed a very large cystic mass measuring 28 x 15 cm. IMPRESSION: This is a 36-year-old female, morbidly obese, glucose intolerance admitted with erysipelas. She had positive blood cultures for group G Streptococcus. She has persistent fever in spite of appropriate antibiotics for 3 days, but clinically has improved according to her sister eating better and has a better attitude. Does not seem to have any involvement of the joints or an abscess. Her white count at baseline is low, but seems to have gotten a little lower and a drop in her platelet count, which could be related to ceftaroline. PLAN: Switch to intravenous (IV) penicillin to 2.5 million every 4 hours. Discontinue ceftaroline. If continues to have fever tomorrow, consider obtaining CT of lower extremity to rule out abscess. Obstetrics/gynecology ([facility]) consult for cystic mass and bilateral hydronephrosis. The patient has a history of cervical cancer. Echocardiogram to rule out endocarditis, although this is very unlikely as she had negative cultures within 24 hours. Repeat CRP in the morning.
[2016-07-15] MEDS: LEVOTHYROXINE 0.112 MG TAB (112 MCG) PO SCH (05:38)
[2016-07-15 05:53] LABS: MEAN CORPUSCULAR HEMOGLOBIN 31.4 pg (27.0-33.0); MEAN CORPUSCULAR HGB CONC 35.3 g/dl (32.0-36.5); MEAN CORPUSCULAR VOLUME 88.9 fl (80.0-96.0); RED CELL DISTRIBUTION WIDTH 14.7 % (11.5-14.5); WHITE BLOOD COUNT 4.9 K/mm3 (4.0-10.0)
[2016-07-15 06:00] VITALS: BP 119/61
[2016-07-15 06:14] LABS: ANION GAP 7 MEQ/L (8-16); BLOOD UREA NITROGEN 9 MG/DL (7-18); CALCIUM LEVEL 8.2 MG/DL (8.5-10.1); CARBON DIOXIDE LEVEL 22 MEQ/L (21-32); CHLORIDE LEVEL 108 MEQ/L (98-107); CREATININE FOR GFR 0.84 MG/DL (0.55-1.02); GLOMERULAR FILTRATION RATE > 60.0 (>60); GLUCOSE, FASTING 158 MG/DL (70-105); POTASSIUM SERUM 3.7 MEQ/L (3.5-5.1); SODIUM LEVEL 137 MEQ/L (136-145)
[2016-07-15] MEDS: MICONAZOLE 2 % POWDER (DESENEX) TOP SCH ×2 (08:02→21:56)
[2016-07-15] MEDS: IBUPROFEN 400 MG TAB PO PRN ×2 (08:02→17:52)
[2016-07-15] MEDS: ASPIRIN 81 MG ENTERIC TAB PO SCH (08:02)
[2016-07-15] MEDS: EUCERIN 120GM CREAM EXT SCH ×2 (08:02→21:56)
--- NOTE | 2016-07-15 08:10 | REP ---
CT RIGHT LOWER LEG WITH CONTRAST: CT right lower leg is performed following the intravenous administration of 100 mL of Isovue 370. Sagittal and coronal reconstruction images are performed. . Diffuse edema is seen in the subcutaneous soft tissues of the right lower leg. I do not see enhancing abscess collection. Underlying tibia and fibula appear intact with no fracture or osseous destruction. IMPRESSION: Diffuse edema in the subcutaneous soft tissues. No definite abscess collection. Signed by Jonathan Shah MD 07/15/2016 12:22 P
--- NOTE | 2016-07-15 09:52 | IPNPDOC ---
Subjective Date Seen The patient was seen on 07/15/16. Subjective Chief Complaint/HPI The patient is a 36-year-old female admitted with a reason for visit of Ovarian Mass, Left; Vomiting. Events since last encounter Continues with fevers. Tmax 102.2. S/p CT of tib/fib: soft tissue swelling. no abcess visible. Podiatry did not feel FB Cause of RLE cellulitis. ID consult obtained. CELSA ordered to r/o vegetation due to + blood cultures. Erythema and swelling progressing up leg and onto right foot. + drainage from anterior right douglas noted. large amount, no odor. General: Reports: Other Symptoms (KERI obtained from family as patient is non- verbal) Constitutional: Reports: Fever Pulmonary: Denies: Dyspnea, Cough Gastrointestinal: Denies: Nausea, Vomiting, Abdominal Pain, Diarrhea, Constipation Genitourinary: Denies: Dysuria, Frequency, Incontinence, Retention Musculoskeletal: Reports: Other Symptoms (antalgic gait on right foot. ) Psych: Reports: Mood Normal Objective Physical Examination General Exam: Positive: Alert, No Acute Distress Neck Exam: Positive: Supple, Negative: JVD, thyromegaly Chest Exam: Positive: Clear to auscultation, Normal air movement Heart Exam: Positive: Rate Normal, Regular Rhythm, Normal S1, Normal S2, Negative: Murmurs, Rubs Abdomen Exam: Positive: Normal bowel sounds, Soft, Negative: Tenderness, Hepatospenomegaly Extremity Exam: Positive: Edema (R > L) Skin Exam: Positive: Other skin issue (RLE with erythema, warmth, tenderness and swelling. Area of erythema now extends to the thigh and into groin. noted large amount of drainage to dressing on RLE. ), Negative: Rash, Breakdown Psych Exam: Positive: Mood NL Assessment /Plan Problems (1) Sepsis Status: Acute Problem Text: 07/15/2016: IV acces obtained. abx started. Continues with fevers. CT scan ankle and foot ordered to r/o abcess. 07/14 -- Echo ordered. Antibiotic susceptibilities available, and I changed to ceftriaxone. Consulted Dr. Lombardo, who recommended penicillin, which I ordered. Later in the evening I got a call that IV access was lost and nursing was struggling to obtain another line. As she had received a dose of ceftriaxone, I stated that it was OK to wait until day team was available to try and reestablish access. Nursing requested a PICC line, and I certainly don't think that is a good idea until we have echo results; would prefer to avoid if we can get a peripheral IV. 07/13 -- patient continues on ceftaroline. She continues to spike fevers. Next set of blood cultures is negative. Will obtain echocardiogram if patient is febrile again tomorrow. Ceftaroline day #2. lactic acid trending down. IVF maintained. + fevers. no elevated WBC. Will obtain imaging of foot and ankle to eval source. + blood cultures: gram + cocci in clusters. Father states will not stay still long enough for MRI. (2) Cellulitis of right lower leg Status: Acute Problem Text: 07/15/2016: progressing up thigh and into right groin. CT ankle and foot ordered. Conitnue current abx. 07/14 -- Discussed with Dr. Lombardo, who is consulted. CT of lower extremity ordered. Will obtain imaging of foot and ankle to eval source. + blood cultures: gram + cocci in clusters. Father states will not stay still long enough for MRI. D/W Dr Cardona. He does not believe the metallic FB is likely related to the leg infection. More harm than benefit likely by surgical exploration to retrieve. (3) Ovarian mass, left Status: Acute Problem Specific Plan: Consult Specialist Problem Text: BIKE TECHNICIAN eval pending. (4) Hydronephrosis Problem Text: secondary to ovarian mass per CT report (5) Vomiting Status: Acute Problem Specific Plan: Monitor Clinically (6) Impaired fasting glucose Problem Text: Hgba1c of 6.3 noted in 05/2016 (7) Hypothyroidism Status: Chronic Response to Treatment: Stable Problem Text: stable TSH (8) History of cervical cancer Status: Chronic Problem Text: s/p hysterectomy after abnormal pap smear in 2009. Hx of uterine fibroids. (9) Pancytopenia Problem Text: 07/14 -- peripheral smear and LDH ordered; echo pending; aPTT and PT both within normal limits. Anti-heparin antibodies ordered yesterday. This may be a side effect of Teflaro (medication changed this a.m.) Plan/VTE VTE Prophylaxis Ordered?: Yes (Heparin) Plan IVF: Continue Diagnostics: MRI (MRI of leg might be helpful but would require sedation so not ordered at this time depending on clinical course.) Attending note: I saw and evaluated the patient, and agree with plan of care as discussed and documented by Genoveva Lagunas. Patient will need lower extremity MRI. Not improving. However, family was concerned that she would not tolerate this. We will hold off to see if she continues to improve. Will need to address ovarian mass as soon as her cellulitis is controlled. Kavon Fraser MD VS, I&O, 24H, Fishbone Vital Signs/I&O Vital Signs Date Time Temp Pulse Resp B/P (MAP) Pulse Ox O2 Delivery O2 Flow Rate FiO2 07/15/16 06:00 100.4 86 19 119/61 (80) 97 Room Air I&O- Last 24 Hours up to 6 AM 07/15/16 06:00 Intake Total 4710 ml Output Total 550 ml Balance 4160 ml Laboratory Data 24H LABS Laboratory Tests 2 07/14/16 13:30: Prothrombin Time 12.9, Prothromb Time International Ratio 0.96, Activated Partial Thromboplast Time 28.9 07/14/16 14:05: Urine Appearance HAZY, Urine Color MONALISA, Urine pH 5.0, Urine Specific [place] 1.024, Urine Protein 2+H, Urine Glucose (UA) 3+H, Urine Ketones NEGATIVE, Urine Urobilinogen 2.0H, Urine Bilirubin NEGATIVE, Urine Leukocyte Esterase NEGATIVE, Urine Blood 1+H, Urine Nitrite NEGATIVE, Urine WBC (Auto) 9H, Urine RBC (Auto) 4H, Urine Hyaline Casts (Auto) 0, Urine Bacteria (Auto) NEGATIVE, Urine Squamous Epithelial Cells 2, Urine Amorphous Sediment SMALLH, Urine Mucus (Auto ) SMALL, Urine Sperm (Auto) 07/15/16 05:37: Anion Gap 7L, Glomerular Filtration Rate > 60.0, Blood Urea Nitrogen 9, Creatinine 0.84, Sodium Level 137, Potassium Level 3.7, Chloride Level 108H, Carbon Dioxide Level 22, Calcium Level 8.2L, C-Reactive Protein, Quantitative 25.50H CBC/BMP Laboratory Tests 07/15/16 05:37 Red Blood Count 3.53 L, Mean Corpuscular Volume 88.9, Mean Corpuscular Hemoglobin 31.4, Mean Corpuscular Hemoglobin Concent 35.3, Red Cell Distribution Width 14.7 H, Calcium Level 8.2 L Microbiology Microbiology 07/12/16 Blood Culture - Preliminary, Resulted No Growth after 48 hours. All Specime... 07/12/16 Blood Culture - Preliminary, Resulted No Growth after 48 hours. All Specime... 07/11/16 Blood Culture - Final, Complete Streptococcus Group G 07/11/16 Blood Culture - Final, Complete Streptococcus Group G 07/14/16 Urine Culture, Received Pending 07/11/16 Urine Culture - Final, Complete Ruthie Lagunas July 15, 2016 09:52 KAVON FRASER MD July 16, 2016 17:06
[2016-07-15] MEDS: PENICILLIN G POTASSIUM IV 2.5 MU in D5W 100 ML IV SCH ×4 (10:39→21:56)
--- NOTE | 2016-07-15 11:42 | REP ---
CT RIGHT ANKLE WITHOUT CONTRAST: 07/15/2016 COMPARISON: CT foot today, CT tibia-fibula yesterday, right foot and ankle series 07/12/2016. TECHNIQUE: Axial soft-tissue images through the ankle with bone windows also obtained and reconstructed coronal and sagittal imaging also reviewed. FINDINGS: There are plantar and Achilles insertion spurs. There is a 4 mm possible foreign body in the subcutaneous plantar soft tissues at the level of the proximal cuboid. Subtalar joints intact. There is prominent soft tissue swelling around the foot dorsally and the ankle anteriorly and laterally more than posterior and medial. There is a soft tissue calcification lateral to the anterior aspect of the ankle joint. I do not see definite fluid collection to suggest abscess nor subcutaneous emphysema. The distal tibia and fibula show minor degenerative spurring inferiorly but no fracture. Marginal osteophytes only at the medial and lateral malleolar tips. The mortise joint symmetric and preserved with no talar dome osteochondral defect. IMPRESSION: 1. Prominent diffuse soft tissue swelling around the ankle and foot particularly the lateral ankle and the dorsal aspect of the foot. No subcutaneous emphysema or definite abscess by noncontrast CT. There were minor degenerative changes and tiny calcifications also noted in soft tissues as well as one small presumed foreign body in the plantar subcutaneous fat as described in the foot CT. Signed by Joseph Rice MD 07/15/2016 01:32 P
--- NOTE | 2016-07-15 12:06 | REP ---
CT RIGHT FOOT WITHOUT CONTRAST: 07/15/2016. Clinical history: Right lower extremity swelling and erythema. Evaluate for foreign body and/or abscess. Comparison: The patient had a tibia-fibula CT yesterday, a right foot series 07/12/2016. Findings: There is a 4.5 mm foreign body in the subcutaneous fat in the soft tissues on the plantar aspect of the foot where there is dramatic soft tissue edema and swelling over the dorsal aspect of the entire foot. Swelling also noted about the ankles and less in the plantar aspect of the foot and its subcutaneous tissues. The bone windows show plantar and Achilles insertional heel spurs. Talonavicular and calcaneocuboid joints are intact. The ankle mortise joint was fairly symmetric and preserved with no talar dome osteochondral defect. Sustentaculum sarah unremarkable. The posterior subtalar joints and other subtalar joints intact. Talonavicular and calcaneocuboid joints normal. The tarsal bones and articulations show some minor degenerative changes at the tarsometatarsal junction on the great toe medially. The tarsal bones without fracture or focal lesion otherwise. There is mild degenerative changes distal first metatarsal at the MTP joint. IP joints and phalanges with minor degenerative change and no destructive lesion on the coronal images. There is a 3.5 mm calcific density and soft tissues lateral to the anterior aspect of the ankle joint. This may be old avulsion or embedded foreign body. I do not see destructive lesion in the distal tibia or fibula. Impression: 1. There is extensive and diffuse subcutaneous edema, dramatic along the dorsal aspect of the entire foot particularly at the distal forefoot and midfoot. A few tiny calcific densities in the soft tissue most likely small phleboliths or other benign finding. There is one linear 4 mm density that could be a foreign body in the plantar aspect of the foot and without significant plantar soft tissue swelling. No destructive lesion of bone or other signs of osteomyelitis. No subcutaneous emphysema. Mild degenerative changes as described. Signed by Joseph Rice MD 07/15/2016 01:34 P
--- NOTE | 2016-07-15 12:22 | CR ---
DATE OF CONSULTATION: 07/15/2014 REASON FOR CONSULTATION: Large pelvic mass. HISTORY: 36-year-old G0 female hospital day number five with medical history significant for autism, morbid obesity and history of cervical cancer who presented to [facility] on 07/11/2016 with fever and vomiting for one day. The patient is nonverbal, not able to answer questions or follow commands. Information is obtained from the patient's sister. The patient had had an ulcer on her leg that her father had been tending to. She had a fever to 101 at home. The patient did not appear to be in any pain at the time of admission. CT scan and ultrasound revealed a large cystic mass at the time of admission. PAST MEDICAL HISTORY: 1. Autistic disorder. 2. Hyperlipidemia. 3. Hypothyroidism. 4. Morbid obesity. 5. Impaired fasting glucose. 6. Cervical cancer, history of hysterectomy. PAST SURGICAL HISTORY: 1. Hysterectomy in 1999. 2. Cholecystectomy 2009. ALLERGIES: SULFA and OXYCODONE. SOCIAL HISTORY: The patient denies cigarettes, alcohol or drug use. She lives with her father who is the primary caretaker grounds. FAMILY HISTORY: Noncontributory. PHYSICAL EXAMINATION: VITAL SIGNS: Current temperature 100.4, pulse 86, blood pressure 119/61, respirations 19, pulse oxygen 97% on room air, temperature maximum (T-max) 102.5. GENERAL: She is no apparent distress. HEAD AND NECK: Exam is normal. LUNGS: Clear. HEART: Regular rate and rhythm. ABDOMEN: Obese, nontender with a vertical midline scar. EXTREMITIES: Moderately tender on the right with edema and apparent cellulitis. There is JOSE bandage wrapped around the leg currently. LABORATORY DATA: WBC 4.9, hemoglobin 11.1. Chemistries within reasonable range. CT scan on 07/11/2016 shows 21.8 x 15 cm cystic mass in the pelvis with mild hydroureter bilaterally and several small daughter bilateral cysts present. ASSESSMENT: 36-year-old G0 female with multiple medical problems is admitted with nausea and vomiting, as well as fevers, likely cause of fevers is bacteremia from cellulitis of her lower extremity ulceration. There is an incidental finding of large ovarian cystic mass arising from the pelvis. 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 While these are generally benign, cannot rule out carcinoma of the ovary. Will plan to check CA-125 level. Once the patient is stable from a medical standpoint will recommend laparotomy with excision of pelvic mass and removal of both ovaries. Will follow during hospitalization. KASANDRA
[2016-07-15 14:00] VITALS: BP 126/78
[2016-07-15] MEDS: NS 1,000 ML IV SCH (17:53)
[2016-07-15] MEDS: ACETAMINOPHEN TAB 650MG DOSE (2X325MG) PO PRN (21:57)
[2016-07-15] MEDS: traZODone 100 MG TAB PO SCH (21:57)
[2016-07-15] MEDS: SIMVASTATIN 20 MG TAB PO SCH (21:57)
[2016-07-15 22:00] VITALS: BP 128/63
[2016-07-16] MEDS: NS 1,000 ML IV SCH ×2 (00:30→09:14)
[2016-07-16] MEDS: PENICILLIN G POTASSIUM IV 2.5 MU in D5W 100 ML IV SCH ×6 (02:26→21:24)
[2016-07-16] MEDS: LEVOTHYROXINE 0.112 MG TAB (112 MCG) PO SCH (05:57)
[2016-07-16 06:00] VITALS: BP 147/65
[2016-07-16 07:17] LABS: MEAN CORPUSCULAR HGB CONC 33.4 g/dl (32.0-36.5); MEAN CORPUSCULAR VOLUME 89.8 fl (80.0-96.0); RED CELL DISTRIBUTION WIDTH 14.8 % (11.5-14.5); WHITE BLOOD COUNT 7.2 K/mm3 (4.0-10.0)
[2016-07-16 07:38] LABS: ANION GAP 7 MEQ/L (8-16); BLOOD UREA NITROGEN 9 MG/DL (7-18); CALCIUM LEVEL 8.1 MG/DL (8.5-10.1); CARBON DIOXIDE LEVEL 24 MEQ/L (21-32); CHLORIDE LEVEL 107 MEQ/L (98-107); GLOMERULAR FILTRATION RATE > 60.0 (>60); GLUCOSE, FASTING 172 MG/DL (70-105); POTASSIUM SERUM 3.7 MEQ/L (3.5-5.1); SODIUM LEVEL 138 MEQ/L (136-145)
--- NOTE | 2016-07-16 07:49 | ECHO ---
DATE OF PROCEDURE: 07/15/2016 REFERRING PHYSICIAN: Dr. Ximena Anne. INDICATION: Fever. The patient measures 170 cm and weighs 142 kg. DIMENSIONS: IVS - 1.1 LV - 4.6 LVPW - 0.9 LA - 3.3 Aorta - 3.2 FINDINGS: The study is of acceptable technical quality especially considering patient's body habitus. There were good parasternal views but apical and subcostal views were poor. Left ventricle is normal size and overall likely normal contractility with estimated EF around 60 to 65%. I do not appreciate any segmental wall motion abnormalities. Right ventricle was poorly seen but does not appear grossly enlarged. Both atria are roughly normal. Aortic valve has three cusps and normal mobility and appears normal. Same applies for mitral , tricuspid and pulmonic valves. No pericardial effusion is noted. Inferior vena cava was fairly poorly seen but appears normal. Aortic root is normal, aortic arch and abdominal aorta were not visualized. Doppler interrogation of aortic valve reveals no stenosis or insufficiency. There is also no mitral stenosis or insufficiency and only trace tricuspid insufficiency. Calculated pulmonary artery pressure is within normal limits based on limited views. Pulmonic valve is functionally competent. Mitral inflow pattern and tissue Doppler imaging of mitral annulus reveal normal diastolic function (mitral inflow E velocity is 82 cm/s. E prime septal 9.3, E prime lateral 12.6 cm/s). CONCLUSION: 1. Study is of acceptable technical quality. 2. Normal LV size with normal LV systolic function and probably normal diastolic function. 3. No significant valvular disease. 4. Likely normal central venous pressure and pulmonary artery pressure. COMMENT: SBE prophylaxis is not recommended. No obvious vegetations are seen. If high clinical suspicion for endocarditis, then transesophageal echocardiogram will provide better resolution and sensitivity for detection of vegetations. [facility]
--- NOTE | 2016-07-16 08:31 | IPNPDOC ---
Subjective Date Seen The patient was seen on 07/16/16. Subjective Chief Complaint/HPI The patient is a 36-year-old female admitted with a reason for visit of Ovarian Mass, Left; Vomiting. Events since last encounter Copious amounts of fluid draining from RLE. Serous in nature. non-odorous. swelling improving. Constitutional: Denies: Chills, Fever, Night Sweats Pulmonary: Denies: Dyspnea, Cough Gastrointestinal: Denies: Vomiting, Abdominal Pain, Diarrhea, Constipation Genitourinary: Denies: Dysuria, Frequency, Incontinence, Retention Objective Physical Examination General Exam: Positive: Alert, No Acute Distress Neck Exam: Positive: Supple, Negative: JVD, thyromegaly Chest Exam: Positive: Clear to auscultation, Normal air movement Heart Exam: Positive: Rate Normal, Regular Rhythm, Normal S1, Normal S2, Negative: Murmurs, Rubs Abdomen Exam: Positive: Normal bowel sounds, Soft, Negative: Tenderness, Hepatospenomegaly Extremity Exam: Positive: Edema (R > L) Skin Exam: Positive: Other skin issue (RLE: erythema to calf, has decreased from groin/thigh region. Showing significant improvement in edema. + weeping noted. ), Negative: Rash, Breakdown Psych Exam: Positive: Mood NL Assessment /Plan Problems (1) Sepsis Status: Acute Problem Text: 07/16/2016: Day #2 Pen G. Most recent blood cxs negative. Echo negative. 07/15/2016: IV acces obtained. abx started. Continues with fevers. CT scan ankle and foot ordered to r/o abcess. 07/14 -- Echo ordered. Antibiotic susceptibilities available, and I changed to ceftriaxone. Consulted Dr. Lombardo, who recommended penicillin, which I ordered. Later in the evening I got a call that IV access was lost and nursing was struggling to obtain another line. As she had received a dose of ceftriaxone, I stated that it was OK to wait until day team was available to try and reestablish access. Nursing requested a PICC line, and I certainly don't think that is a good idea until we have echo results; would prefer to avoid if we can get a peripheral IV. 07/13 -- patient continues on ceftaroline. She continues to spike fevers. Next set of blood cultures is negative. Will obtain echocardiogram if patient is febrile again tomorrow. Ceftaroline day #2. lactic acid trending down. IVF maintained. + fevers. no elevated WBC. Will obtain imaging of foot and ankle to eval source. + blood cultures: gram + cocci in clusters. Father states will not stay still long enough for MRI. (2) Cellulitis of right lower leg Status: Acute Problem Text: 07/16/2016: improving. continue to monitor. 07/15/2016: progressing up thigh and into right groin. CT ankle and foot ordered. Continue current abx. 07/14 -- Discussed with Dr. Lombardo, who is consulted. CT of lower extremity ordered. Will obtain imaging of foot and ankle to eval source. + blood cultures: gram + cocci in clusters. Father states will not stay still long enough for MRI. D/W Dr Cardona. He does not believe the metallic FB is likely related to the leg infection. More harm than benefit likely by surgical exploration to retrieve. 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 (4) Hydronephrosis Problem Text: secondary to ovarian mass per CT report (5) Vomiting Status: Acute Problem Specific Plan: Monitor Clinically (6) Impaired fasting glucose Problem Text: Hgba1c of 6.3 noted in 05/2016 (7) Hypothyroidism Status: Chronic Response to Treatment: Stable Problem Text: stable TSH (8) History of cervical cancer Status: Chronic Problem Text: s/p hysterectomy after abnormal pap smear in 2009. Hx of uterine fibroids. (9) Pancytopenia Problem Text: 07/14 -- peripheral smear and LDH ordered; echo pending; aPTT and PT both within normal limits. Anti-heparin antibodies ordered yesterday. This may be a side effect of Teflaro (medication changed this a.m.) Plan/VTE VTE Prophylaxis Ordered?: Yes (Heparin) Plan IVF: Continue Diagnostics: MRI (MRI of leg might be helpful but would require sedation so not ordered at this time depending on clinical course.) Attending note: I saw and evaluated the patient, and agree with the plan of care as discussed and documented by Genoveva Lagunas. Patient's foot is greatly improved today, however continues to have significant swelling. Infectious disease has seen the patient, and felt the patient try for an MRI. I indicated to the family that I agree with this plan of care. She will likely need a dose of diazepam to keep her calm prior to the procedure or MRI under conscious sedation due to her underlying developmental disability. Deon Fraser MD VS, I&O, 24H, Fishbone Vital Signs/I&O Vital Signs Date Time Temp Pulse Resp B/P (MAP) Pulse Ox O2 Delivery O2 Flow Rate FiO2 07/16/16 06:00 97.9 83 18 147/65 (92) 98 Room Air I&O- Last 24 Hours up to 6 AM 07/16/16 05:59 Intake Total 2720 ml Output Total 450 ml Balance 2270 ml Laboratory Data 24H LABS Laboratory Tests 2 07/15/16 12:08: 07/16/16 06:58: Anion Gap 7L, Glomerular Filtration Rate > 60.0, Blood Urea Nitrogen 9, Creatinine 0.80, Sodium Level 138, Potassium Level 3.7, Chloride Level 107, Carbon Dioxide Level 24, Calcium Level 8.1L CBC/BMP Laboratory Tests 07/16/16 06:58 Red Blood Count 3.53 L, Mean Corpuscular Volume 89.8, Mean Corpuscular Hemoglobin 30.0, Mean Corpuscular Hemoglobin Concent 33.4, Red Cell Distribution Width 14.8 H, Calcium Level 8.1 L Microbiology Microbiology 07/12/16 Blood Culture - Preliminary, Resulted No Growth after 72 hours. All specime... 07/12/16 Blood Culture - Preliminary, Resulted No Growth after 72 hours. All specime... 07/11/16 Blood Culture - Final, Complete Streptococcus Group G 07/11/16 Blood Culture - Final, Complete Streptococcus Group G 07/14/16 Urine Culture - Final, Complete 07/11/16 Urine Culture - Final, Complete Ruthie Lagunas July 16, 2016 08:31 DEON FRASER MD July 16, 2016 17:07
[2016-07-16] MEDS: ASPIRIN 81 MG ENTERIC TAB PO SCH (09:13)
[2016-07-16] MEDS: EUCERIN 120GM CREAM EXT SCH ×2 (09:13→21:24)
[2016-07-16] MEDS: MICONAZOLE 2 % POWDER (DESENEX) TOP SCH ×2 (09:13→21:24)
[2016-07-16] MEDS: ACETAMINOPHEN TAB 650MG DOSE (2X325MG) PO PRN ×2 (11:28→18:46)
[2016-07-16 14:00] VITALS: BP 139/76
[2016-07-16] MEDS: SIMVASTATIN 20 MG TAB PO SCH (21:23)
[2016-07-16] MEDS: traZODone 100 MG TAB PO SCH (21:23)
[2016-07-16 22:00] VITALS: BP 140/83
--- NOTE | 2016-07-16 23:03 | IPN ---
DATE: 07/16/2016 Karen was seen today. Her father was at the bedside. She seemed to be in a good mood except when I tried to make her stand up on her foot she was complaining of pain when she was stepping. She has been eating fairly well. She still has some episodes of vomiting. Maximum temperature (T-max) today was 102.9 at 11 o'clock, currently 99.1, pulse 80, respirations 18, blood pressure 139/76, oxygen saturation 95% on room air. Heart: Normal S1, S2, with no murmurs, rubs or gallops. Abdomen is soft, nontender, obese. Extremities: Right lower extremity with diffuse edema especially involving the dorsal aspect of the foot. Less edema in the lower leg and there is erythema extending from the foot all the way to the thigh. Ankle has fair range of motion but when she steps on it it hurts her a lot. Knee has fairly good range of motion, 90 degrees sitting up, and hip has good range of motion. IMPRESSION: Complicated skin and soft tissue infection with persistent fever in spite of appropriate antibiotic with IV penicillin. She has been on appropriate antibiotic for the past 6 days with persistent fever. I have reviewed the CT scan of her ankle, foot and knee that was done with contrast yesterday. There is no evidence of effusion. This was discussed with Dr. Oropeza who feels that there is soft tissue edema and complicated skin and soft tissue infection without even abscess and therefore MRI was not ordered. LABORATORY DATA: White count is 7.2 which has improved from 2.1, hemoglobin 10.6, hematocrit 31.7, platelets also is improving 90-131 and CRP has decreased from 25-21. IMPRESSION: 1. Complicated skin and soft tissue infection from group G Streptococcus on IV penicillin with some improvement clinically with improvement in platelets, C-reactive protein (CRP), but persistent fever. Will continue to monitor. 2. Ovarian mass with bilateral hydronephrosis, moderate. I also did discuss the case with Dr. Oropeza regarding the need for stenting, if the hydronephrosis would cause some kidney damage if surgery is not done soon enough. This may need to be discussed with urology. The mass measures 28 x 16 cm. 3. Bilateral moderate hydroureter and hydronephrosis. Creatinine has remained normal. PLAN: Continue IV penicillin. Continue to monitor with her clinical findings. Hopefully her fever will break soon. If the fever does not madelaine, maybe that could be related to a drug fever from penicillin and she could possibly be switched to a non-penicillin based drug. Echocardiogram was done on 07/15/2016, read by Dr. Lamar, and there is no obvious vegetation, the study was acceptable technical quality. There is normal left ventricular size and function. No valvular disease.
[2016-07-17] MEDS: NS 1,000 ML IV SCH (00:19)
[2016-07-17] MEDS: PENICILLIN G POTASSIUM IV 2.5 MU in D5W 100 ML IV SCH ×6 (01:45→21:29)
[2016-07-17] MEDS: LEVOTHYROXINE 0.112 MG TAB (112 MCG) PO SCH (05:41)
[2016-07-17 06:00] VITALS: BP 135/63
[2016-07-17 06:09] LABS: ANION GAP 6 MEQ/L (8-16); BLOOD UREA NITROGEN 6 MG/DL (7-18); CALCIUM LEVEL 8.3 MG/DL (8.5-10.1); CARBON DIOXIDE LEVEL 26 MEQ/L (21-32); CHLORIDE LEVEL 107 MEQ/L (98-107); CREATININE FOR GFR 0.67 MG/DL (0.55-1.02); GLOMERULAR FILTRATION RATE > 60.0 (>60); GLUCOSE, FASTING 159 MG/DL (70-105); POTASSIUM SERUM 3.8 MEQ/L (3.5-5.1); SODIUM LEVEL 139 MEQ/L (136-145)
[2016-07-17 06:35] LABS: MEAN CORPUSCULAR HEMOGLOBIN 30.4 pg (27.0-33.0); MEAN CORPUSCULAR HGB CONC 33.7 g/dl (32.0-36.5); MEAN CORPUSCULAR VOLUME 90.2 fl (80.0-96.0); RED CELL DISTRIBUTION WIDTH 14.8 % (11.5-14.5); WHITE BLOOD COUNT 6.7 K/mm3 (4.0-10.0)
--- NOTE | 2016-07-17 09:24 | IPNPDOC ---
Subjective Date Seen The patient was seen on 07/17/16. Subjective Chief Complaint/HPI The patient is a 36-year-old female admitted with a reason for visit of Ovarian Mass, Left; Vomiting. Events since last encounter RLE slowly improving with compression and elevation. Continues with fevers, yet trending down in intensity. Tmax 100.8. Constitutional: Denies: Chills, Fever, Night Sweats Skin: Reports: Other (cellulitis RLE. drainage from RLE, weeping) Gastrointestinal: Denies: Nausea, Vomiting, Abdominal Pain, Diarrhea, Constipation Genitourinary: Denies: Dysuria, Frequency, Incontinence, Retention Psych: Reports: Mood Normal, Denies: Depression, Memory Issues Objective Physical Examination General Exam: Positive: Alert, No Acute Distress Neck Exam: Positive: Supple, Negative: JVD, thyromegaly Chest Exam: Positive: Clear to auscultation, Normal air movement Heart Exam: Positive: Rate Normal, Regular Rhythm, Normal S1, Normal S2, Negative: Murmurs, Rubs Abdomen Exam: Positive: Normal bowel sounds, Soft, Negative: Tenderness, Hepatospenomegaly Extremity Exam: Positive: Edema (R > L) Skin Exam: Positive: Other skin issue (RLE: erythema to calf, has decreased from groin/thigh region. Showing significant improvement in edema. + weeping noted. ), Negative: Rash, Breakdown Psych Exam: Positive: Mood NL Assessment /Plan Problems (1) Sepsis Status: Resolved Problem Text: Penicillin G day 3. Prior, received 2.5 days of ceftaroline and 1 day of ceftriaxone. Initially meeting sepsis criteria, with lactic acidosis, now resolved. Continues to have mild fevers. + blood cultures: Group G strep. Father states will not stay still long enough for MRI. (2) Cellulitis of right lower leg Status: Acute Problem Text: 07/17/16: slow improvement. On Pen G IV. Monitor. Fevers slowly trending down. 07/15/2016: progressing up thigh and into right groin. CT ankle and foot ordered. Continue current abx. 07/14 -- Discussed with Dr. Lombardo, who is consulted. CT of lower extremity ordered. Will obtain imaging of foot and ankle to eval source. + blood cultures: gram + cocci in clusters. Father states will not stay still long enough for MRI. D/W Dr Cardona. He does not believe the metallic FB is likely related to the leg infection. More harm than benefit likely by surgical exploration to retrieve. 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 (4) Hydronephrosis Problem Text: 07/17/16: renal US ordered to monitor hydronephrosis. secondary to ovarian mass per CT report (5) Vomiting Status: Resolved Problem Specific Plan: Monitor Clinically (6) Impaired fasting glucose Problem Text: Hgba1c of 6.3 noted in 05/2016 (7) Hypothyroidism Status: Chronic Response to Treatment: Stable Problem Text: stable TSH (8) History of cervical cancer Status: Chronic Problem Text: s/p hysterectomy after abnormal pap smear in 2009. Hx of uterine fibroids. (9) Pancytopenia Status: Resolved Problem Text: Continues to have anemia. Thrombocytopenia has resolved. Plan/VTE VTE Prophylaxis Ordered?: Yes (Heparin) Plan IVF: Continue Diagnostics: MRI (MRI of leg might be helpful but would require sedation so not ordered at this time depending on clinical course.) Attending note: I saw and evaluated the patient, and agree with the plan of care as discussed and documented by Genoveva Lagunas. Instructed patient's family on elevating the leg , as there is still significant edema in the foot. However, leg seems to be continuing to improve. Deon Fraser MD VS, I&O, 24H, [facility] Vital Signs/I&O Vital Signs Date Time Temp Pulse Resp B/P (MAP) Pulse Ox O2 Delivery O2 Flow Rate FiO2 07/17/16 06:00 99.7 81 18 135/63 (87) 94 Room Air I&O- Last 24 Hours up to 6 AM 07/17/16 05:59 Intake Total 3220 ml Output Total 300 ml Balance 2920 ml Laboratory Data 24H LABS Laboratory Tests 2 07/17/16 05:27: Anion Gap 6L, Glomerular Filtration Rate > 60.0, Blood Urea Nitrogen 6L, Creatinine 0.67, Sodium Level 139, Potassium Level 3.8, Chloride Level 107, Carbon Dioxide Level 26, Calcium Level 8.3L, C-Reactive Protein, Quantitative 13.50H CBC/BMP Laboratory Tests 07/17/16 05:27 Red Blood Count 3.04 L, Mean Corpuscular Volume 90.2, Mean Corpuscular Hemoglobin 30.4, Mean Corpuscular Hemoglobin Concent 33.7, Red Cell Distribution Width 14.8 H, Calcium Level 8.3 L Microbiology Microbiology 07/12/16 Blood Culture - Preliminary, Resulted No Growth after 72 hours. All specime... 07/12/16 Blood Culture - Preliminary, Resulted No Growth after 72 hours. All specime... 07/11/16 Blood Culture - Final, Complete Streptococcus Group G 07/11/16 Blood Culture - Final, Complete Streptococcus Group G 07/14/16 Urine Culture - Final, Complete 07/11/16 Urine Culture - Final, Complete Ruthie Lagunas July 17, 2016 09:24 DEON FRASER MD July 19, 2016 13:50
[2016-07-17] MEDS: ASPIRIN 81 MG ENTERIC TAB PO SCH (09:33)
[2016-07-17] MEDS: MICONAZOLE 2 % POWDER (DESENEX) TOP SCH ×2 (09:34→21:30)
[2016-07-17] MEDS: EUCERIN 120GM CREAM EXT SCH ×2 (09:34→21:30)
[2016-07-17] MEDS: ENOXAPARIN 40 MG/0.4 ML SYRINGE (J1650) SC SCH (09:34)
--- NOTE | 2016-07-17 10:53 | REP ---
Clinical: Hydronephrosis. Technique: Real time thao scale and color evaluation using curved array transducer. Findings: The kidneys are normal in reniform shape and echogenicity demonstrating moderate bilateral hydronephrosis and proximal hydroureter without obvious nephrolithiasis, renal cystic or mass lesions. No perinephric fluid collections are identified. Right kidney measures 13.4 x 7.3 x 6.8 cm. Left kidney measures 13.9 x 9.0 x 6.4 cm. Evaluation of the pelvis demonstrates incompletely distended bladder along with large cystic mass measuring approximately 23 x 16 x 16 cm. Impression: Moderate bilateral hydronephrosis may be secondary to extrinsic compression of the ureters due to large pelvic cystic mass. Signed by Remigio Dover MD 07/17/2016 10:44 A
[2016-07-17 14:00] VITALS: BP 152/84
[2016-07-17] MEDS: ACETAMINOPHEN TAB 650MG DOSE (2X325MG) PO PRN (21:29)
[2016-07-17] MEDS: SIMVASTATIN 20 MG TAB PO SCH (21:29)
[2016-07-17] MEDS: traZODone 100 MG TAB PO SCH (21:29)
[2016-07-17 22:00] VITALS: BP 141/71
[2016-07-18] MEDS: PENICILLIN G POTASSIUM IV 2.5 MU in D5W 100 ML IV SCH ×6 (02:13→21:08)
[2016-07-18 06:00] VITALS: BP 130/62
[2016-07-18] MEDS: LEVOTHYROXINE 0.112 MG TAB (112 MCG) PO SCH (06:01)
[2016-07-18 06:17] LABS: MEAN CORPUSCULAR HEMOGLOBIN 30.1 pg (27.0-33.0); MEAN CORPUSCULAR HGB CONC 33.7 g/dl (32.0-36.5); MEAN CORPUSCULAR VOLUME 89.3 fl (80.0-96.0); RED CELL DISTRIBUTION WIDTH 14.7 % (11.5-14.5); WHITE BLOOD COUNT 7.5 K/mm3 (4.0-10.0)
[2016-07-18 06:37] LABS: ANION GAP 6 MEQ/L (8-16); BLOOD UREA NITROGEN 7 MG/DL (7-18); CALCIUM LEVEL 8.5 MG/DL (8.5-10.1); CARBON DIOXIDE LEVEL 28 MEQ/L (21-32); CHLORIDE LEVEL 105 MEQ/L (98-107); CREATININE FOR GFR 0.63 MG/DL (0.55-1.02); GLOMERULAR FILTRATION RATE > 60.0 (>60); GLUCOSE, FASTING 151 MG/DL (70-105); SODIUM LEVEL 139 MEQ/L (136-145)
[2016-07-18] MEDS: ASPIRIN 81 MG ENTERIC TAB PO SCH (09:47)
[2016-07-18] MEDS: MICONAZOLE 2 % POWDER (DESENEX) TOP SCH ×2 (09:47→21:07)
[2016-07-18] MEDS: ENOXAPARIN 40 MG/0.4 ML SYRINGE (J1650) SC SCH (09:48)
[2016-07-18] MEDS: EUCERIN 120GM CREAM EXT SCH ×2 (09:48→21:07)
--- NOTE | 2016-07-18 10:39 | IPNPDOC ---
Subjective Date Seen The patient was seen on 07/18/16. Subjective Chief Complaint/HPI The patient is a 36-year-old female admitted with a reason for visit of Ovarian Mass, Left; Vomiting. Events since last encounter Continues to slowly improve in regards to RLE. Fevers continue to rend down. T max 99.9 overnight. Constitutional: Reports: Fever, Denies: Chills, Night Sweats Skin: Denies: Rash, Lesions, Breakdown Pulmonary: Denies: Dyspnea, Cough Gastrointestinal: Denies: Nausea, Vomiting, Abdominal Pain, Diarrhea, Constipation Genitourinary: Denies: Dysuria, Frequency, Incontinence, Retention Neurological: Denies: Weakness, Numbness, Change in speech, Confusion Psych: Reports: Mood Normal, Denies: Depression, Memory Issues Objective Physical Examination General Exam: Positive: Alert, No Acute Distress Neck Exam: Positive: Supple, Negative: JVD, thyromegaly Chest Exam: Positive: Clear to auscultation, Normal air movement Heart Exam: Positive: Rate Normal, Regular Rhythm, Normal S1, Normal S2, Negative: Murmurs, Rubs Abdomen Exam: Positive: Normal bowel sounds, Soft, Negative: Tenderness, Hepatospenomegaly Extremity Exam: Positive: Edema (R > L) Skin Exam: Positive: Other skin issue (RLE: erythema to calf, has decreased Showing significant improvement in edema. + weeping noted. ), Negative: Rash, Breakdown Psych Exam: Positive: Mood NL Assessment /Plan Problems (1) Cellulitis of right lower leg Status: Acute Problem Text: 07/18/2016: continues to improve. wrap leg with foam and donn to absorb drainage. 07/17/16: slow improvement. On Pen G IV. Monitor. Fevers slowly trending down. 07/15/2016: progressing up thigh and into right groin. CT ankle and foot ordered. Continue current abx. 07/14 -- Discussed with Dr. Lombardo, who is consulted. CT of lower extremity ordered. Will obtain imaging of foot and ankle to eval source. + blood cultures: gram + cocci in clusters. Father states will not stay still long enough for MRI. D/W Dr Cardona. He does not believe the metallic FB is likely related to the leg infection. More harm than benefit likely by surgical exploration to retrieve. 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 (3) Hydronephrosis Problem Text: 07/17/16: renal US ordered to monitor hydronephrosis. secondary to ovarian mass per CT report (4) Impaired fasting glucose Problem Text: Hgba1c of 6.3 noted in 05/2016 (5) Hypothyroidism Status: Chronic Response to Treatment: Stable Problem Text: stable TSH (6) History of cervical cancer Status: Chronic Problem Text: s/p hysterectomy after abnormal pap smear in 2009. Hx of uterine fibroids. (7) Pancytopenia Problem Text: 07/14 -- peripheral smear and LDH ordered; echo pending; aPTT and PT both within normal limits. Anti-heparin antibodies ordered yesterday. This may be a side effect of Teflaro (medication changed this a.m.) (8) Sepsis Status: Resolved Problem Text: 07/15/2016: IV acces obtained. abx started. Continues with fevers. CT scan ankle and foot ordered to r/o abcess. 07/14 -- Echo ordered. Antibiotic susceptibilities available, and I changed to ceftriaxone. Consulted Dr. Lombardo, who recommended penicillin, which I ordered. Later in the evening I got a call that IV access was lost and nursing was struggling to obtain another line. As she had received a dose of ceftriaxone, I stated that it was OK to wait until day team was available to try and reestablish access. Nursing requested a PICC line, and I certainly don't think that is a good idea until we have echo results; would prefer to avoid if we can get a peripheral IV. 07/13 -- patient continues on ceftaroline. She continues to spike fevers. Next set of blood cultures is negative. Will obtain echocardiogram if patient is febrile again tomorrow. Ceftaroline day #2. lactic acid trending down. IVF maintained. + fevers. no elevated WBC. Will obtain imaging of foot and ankle to eval source. + blood cultures: gram + cocci in clusters. Father states will not stay still long enough for MRI. (9) Vomiting Status: Resolved Problem Specific Plan: Monitor Clinically Plan/VTE VTE Prophylaxis Ordered?: Yes (Heparin) Plan IVF: Continue Diagnostics: MRI (MRI of leg might be helpful but would require sedation so not ordered at this time depending on clinical course.) VS, I&O, 24H, Fishbone Vital Signs/I&O Vital Signs Date Time Temp Pulse Resp B/P (MAP) Pulse Ox O2 Delivery O2 Flow Rate FiO2 07/18/16 06:00 99.6 67 18 130/62 (84) 96 Room Air I&O- Last 24 Hours up to 6 AM 07/18/16 06:00 Intake Total 1855 ml Output Total 1150 ml Balance 705 ml Laboratory Data 24H LABS Laboratory Tests 2 07/18/16 06:06: Anion Gap 6L, Glomerular Filtration Rate > 60.0, Blood Urea Nitrogen 7, Creatinine 0.63, Sodium Level 139, Potassium Level 4.0, Chloride Level 105, Carbon Dioxide Level 28, Calcium Level 8.5 CBC/BMP Laboratory Tests 07/18/16 06:06 Red Blood Count 3.21 L, Mean Corpuscular Volume 89.3, Mean Corpuscular Hemoglobin 30.1, Mean Corpuscular Hemoglobin Concent 33.7, Red Cell Distribution Width 14.7 H, Calcium Level 8.5 Microbiology Microbiology 07/12/16 Blood Culture - Final, Complete NO GROWTH AFTER 5 DAYS 07/12/16 Blood Culture - Final, Complete NO GROWTH AFTER 5 DAYS 07/11/16 Blood Culture - Final, Complete Streptococcus Group G 07/11/16 Blood Culture - Final, Complete Streptococcus Group G 07/14/16 Urine Culture - Final, Complete 07/11/16 Urine Culture - Final, Complete Ruthie Lagunas [employer]RE [employer] TUBE REPAIRER July 18, 2016 10:39
[2016-07-18 14:00] VITALS: BP 134/63
[2016-07-18] MEDS: SIMVASTATIN 20 MG TAB PO SCH (21:06)
[2016-07-18] MEDS: traZODone 100 MG TAB PO SCH (21:06)
[2016-07-18] MEDS: ACETAMINOPHEN TAB 650MG DOSE (2X325MG) PO PRN (21:07)
[2016-07-18 22:00] VITALS: BP 151/70
[2016-07-19] MEDS: PENICILLIN G POTASSIUM IV 2.5 MU in D5W 100 ML IV SCH ×4 (01:19→14:58)
[2016-07-19] MEDS: LEVOTHYROXINE 0.112 MG TAB (112 MCG) PO SCH (05:49)
[2016-07-19 06:00] VITALS: BP 100/52
--- NOTE | 2016-07-19 09:01 | IPNPDOC ---
Subjective Date Seen The patient was seen on 07/19/16. Subjective Chief Complaint/HPI The patient is a 36-year-old female admitted with a reason for visit of Ovarian Mass, Left; Vomiting. Events since last encounter Continues to improve. Tmax 100.0 Constitutional: Denies: Chills, Fever, Night Sweats Gastrointestinal: Denies: Nausea, Vomiting, Abdominal Pain, Diarrhea, Constipation Genitourinary: Denies: Dysuria, Frequency, Incontinence, Retention Psych: Reports: Mood Normal, Denies: Depression, Memory Issues Objective Physical Examination General Exam: Positive: Alert, No Acute Distress Neck Exam: Positive: Supple, Negative: JVD, thyromegaly Chest Exam: Positive: Clear to auscultation, Normal air movement Heart Exam: Positive: Rate Normal, Regular Rhythm, Normal S1, Normal S2, Negative: Murmurs, Rubs Abdomen Exam: Positive: Normal bowel sounds, Soft, Negative: Tenderness, Hepatospenomegaly Extremity Exam: Positive: Edema (R > L) Skin Exam: Positive: Other skin issue (RLE: erythema to calf, has decreased Showing significant improvement in edema. + weeping noted. ), Negative: Rash, Breakdown Psych Exam: Positive: Mood NL Assessment /Plan Problems (1) Cellulitis of right lower leg Status: Acute Problem Text: 07/19/2016: continues to improve. wrap leg with foam and donn to absorb drainage. To go home with foam dressing. 07/18/2016: continues to improve. wrap leg with foam and donn to absorb drainage. 07/17/16: slow improvement. On Pen G IV. Monitor. Fevers slowly trending down. 07/15/2016: progressing up thigh and into right groin. CT ankle and foot ordered. Continue current abx. 07/14 -- Discussed with Dr. Lombardo, who is consulted. CT of lower extremity ordered. Will obtain imaging of foot and ankle to eval source. + blood cultures: gram + cocci in clusters. Father states will not stay still long enough for MRI. D/W Dr Cardona. He does not believe the metallic FB is likely related to the leg infection. More harm than benefit likely by surgical exploration to retrieve. (2) Ovarian mass, left Status: Acute Problem Specific Plan: Consult Specialist Problem Text: Plan is for Dr. Samaniego to perform laparotomy as an out patient once medically optimized (3) Hydronephrosis Problem Text: 07/17/16: renal US ordered to monitor hydronephrosis. secondary to ovarian mass per CT report (4) Impaired fasting glucose Problem Text: Hgba1c of 6.3 noted in 05/2016 (5) Hypothyroidism Status: Chronic Response to Treatment: Stable Problem Text: stable TSH (6) History of cervical cancer Status: Chronic Problem Text: s/p hysterectomy after abnormal pap smear in 2009. Hx of uterine fibroids. (7) Pancytopenia Status: Resolved Problem Text: 07/14 -- peripheral smear and LDH ordered; echo pending; aPTT and PT both within normal limits. Anti-heparin antibodies ordered yesterday. This may be a side effect of Teflaro (medication changed this a.m.) (8) Sepsis Status: Resolved Problem Text: 07/15/2016: IV acces obtained. abx started. Continues with fevers. CT scan ankle and foot ordered to r/o abcess. 07/14 -- Echo ordered. Antibiotic susceptibilities available, and I changed to ceftriaxone. Consulted Dr. Lombardo, who recommended penicillin, which I ordered. Later in the evening I got a call that IV access was lost and nursing was struggling to obtain another line. As she had received a dose of ceftriaxone, I stated that it was OK to wait until day team was available to try and reestablish access. Nursing requested a PICC line, and I certainly don't think that is a good idea until we have echo results; would prefer to avoid if we can get a peripheral IV. 07/13 -- patient continues on ceftaroline. She continues to spike fevers. Next set of blood cultures is negative. Will obtain echocardiogram if patient is febrile again tomorrow. Ceftaroline day #2. lactic acid trending down. IVF maintained. + fevers. no elevated WBC. Will obtain imaging of foot and ankle to eval source. + blood cultures: gram + cocci in clusters. Father states will not stay still long enough for MRI. (9) Vomiting Status: Resolved Problem Specific Plan: Monitor Clinically Plan/VTE VTE Prophylaxis Ordered?: Yes (Heparin) Plan IVF: Continue Diagnostics: MRI (MRI of leg might be helpful but would require sedation so not ordered at this time depending on clinical course.) Attending note: I saw and evaluated the patient, and I agree with the plan of care as discussed and documented by Genoveva Lagunas. Edema has significantly improved today. Patient is minimally tender on exam. Will likely be ready to go in the next few days. She will need outpatient follow-up with Dr. Samaniego to remove her ovarian mass. Kavon Fraser MD VS, I&O, 24H, Fishbone Vital Signs/I&O Vital Signs Date Time Temp Pulse Resp B/P (MAP) Pulse Ox O2 Delivery O2 Flow Rate FiO2 07/19/16 06:00 98.1 87 18 100/52 (68) 95 Room Air I&O- Last 24 Hours up to 6 AM 07/19/16 06:00 Intake Total 2295 ml Output Total 700 ml Balance 1595 ml Laboratory Data Microbiology Microbiology 07/12/16 Blood Culture - Final, Complete NO GROWTH AFTER 5 DAYS 07/12/16 Blood Culture - Final, Complete NO GROWTH AFTER 5 DAYS 07/11/16 Blood Culture - Final, Complete Streptococcus Group G 07/11/16 Blood Culture - Final, Complete Streptococcus Group G 07/14/16 Urine Culture - Final, Complete 07/11/16 Urine Culture - Final, Complete Ruthie Lagunas EMPLOYEE WELFARE MANAGER July 19, 2016 09:01 KAVON FRASER MD July 19, 2016 13:52
[2016-07-19] MEDS: EUCERIN 120GM CREAM EXT SCH ×2 (10:09→21:14)
[2016-07-19] MEDS: MICONAZOLE 2 % POWDER (DESENEX) TOP SCH ×2 (10:09→21:14)
[2016-07-19] MEDS: ENOXAPARIN 40 MG/0.4 ML SYRINGE (J1650) SC SCH (10:09)
[2016-07-19] MEDS: ASPIRIN 81 MG ENTERIC TAB PO SCH (10:09)
--- NOTE | 2016-07-19 11:31 | IPN ---
DATE: 07/18/2016 Karen seems to be finally doing better. She has not had any more vomiting. She seems to be able to walk on her foot with minimal pain. T-max was 100. Heart: Normal S1, S2. No murmurs. Lungs are clear. Abdomen is soft. Right thigh decreased swelling and redness. Labs from 07/18: White count is 7.5, hemoglobin of 9.7, hematocrit 28.7, platelets 218. Sodium 139, potassium 4, chloride 105, bicarb 28, BUN 7, creatinine 0.63, glucose 151, calcium 8.5, CRP is down to 8.29. Blood cultures on 07/12 were negative. On 07/11 group G strep. IMPRESSION: Complicated skin of soft tissue infection with culture positive for group G strep. The patient has slowly improved but finally has made significant improvement over the past 24 hours. Ovarian mass with moderate bilateral hydronephrosis secondary to extrinsic compression of the ureter due to large pelvic mass. This was done on 07/17 and shows no change from previous. PLAN: If the patient remains afebrile, will switch her to amoxicillin 500 mg by mouth three times daily. She probably could be discharged over the weekend.
[2016-07-19 14:00] VITALS: BP 157/83
--- NOTE | 2016-07-19 17:18 | IPN ---
DATE: 07/19/2016 Karen seems to be doing great today. She states she does not want to go home. She has no nausea, vomiting, or diarrhea. No abdominal pain. She ate a really good lunch. She had two bowel movements. She has very minimal pain. She is walking about back to her baseline. Labs are improving. Her white count is 7.5, hemoglobin 9.7, hematocrit 28.7, platelets 218, which has increased from 90. Sodium 139, potassium 4, chloride 105, bicarbonate 28, BUN 7, creatinine 0.6, glucose 151, calcium 8.5. PHYSICAL EXAMINATION: Maximal temperature was 100 last night, currently 97.6, pulse 70, respirations 18, blood pressure 157/80, oxygen saturation 91% on room air. HEART: Normal S1, S2. No murmurs. ABDOMEN: Obese, soft, nontender. Right lower extremity with decreased edema, redness. Minimal tenderness. Ankle and knee joint full range of motion. Minimal serous drainage. IMPRESSION: Complicated skin and soft tissue infection from group G streptococcus with sepsis and bacteremia. The patient has markedly improved. Has been on IV antibiotics for the past 7 days. PLAN: Switch to amoxicillin 500 mg by mouth three times a day, to finish 7-day course. The patient from infectious disease can go home.
[2016-07-19] MEDS: AMOXICILLIN 500 MG CAP PO SCH (21:13)
[2016-07-19] MEDS: traZODone 100 MG TAB PO SCH (21:13)
[2016-07-19] MEDS: SIMVASTATIN 20 MG TAB PO SCH (21:14)
[2016-07-19 22:00] VITALS: BP 142/65
[2016-07-20] MEDS: AMOXICILLIN 500 MG CAP PO SCH ×2 (05:37→14:08)
[2016-07-20] MEDS: LEVOTHYROXINE 0.112 MG TAB (112 MCG) PO SCH (05:37)
[2016-07-20 06:00] VITALS: BP 132/63
[2016-07-20 06:14] LABS: MEAN CORPUSCULAR HGB CONC 32.8 g/dl (32.0-36.5); MEAN CORPUSCULAR VOLUME 91.4 fl (80.0-96.0); RED CELL DISTRIBUTION WIDTH 14.6 % (11.5-14.5); WHITE BLOOD COUNT 8.2 K/mm3 (4.0-10.0)
[2016-07-20] MEDS: ASPIRIN 81 MG ENTERIC TAB PO SCH (10:10)
[2016-07-20] MEDS: EUCERIN 120GM CREAM EXT SCH (10:11)
[2016-07-20] MEDS: MICONAZOLE 2 % POWDER (DESENEX) TOP SCH (10:11)
[2016-07-20] MEDS: ENOXAPARIN 40 MG/0.4 ML SYRINGE (J1650) SC SCH (10:11)
[2016-07-20 14:00] VITALS: BP 148/72
--- NOTE | 2016-07-21 15:34 | DSES ---
DATE OF ADMISSION: 07/11/2016 DATE OF DISCHARGE: 07/20/2016 DISCHARGE DIAGNOSES: 1. Left ovarian cystic mass [address] CA-125 of 21. 2. Bilateral moderate hydronephrosis, probably secondary to #1. 3. Right lower extremity complicated skin and soft tissue infection secondary to group G Streptococcus with sepsis and bacteremia. 4. Autistic disorder. 5. Hyperlipidemia. 6. Hypothyroidism. 7. Obesity, morbid. 8. Impaired fasting glucose. 9. History of cervical cancer. HOSPITAL COURSE: Patient's left lower extremity complicated skin and soft tissue infection improved with, at first ceftaroline, then per infectious disease, switched to penicillin G 2.5 mg every 4 hours on 07/14/2016. By 07/19/2016, it improved enough to switch to amoxicillin 500 mg three times a day, for which it was recommended to continue on for another seven-day course per Dr. Lombardo. While hospitalized, she was seen by Dr. Samaniego, who planned outpatient laparotomy with excision of the pelvic mass and bilateral oophorectomy once medically optimized. He felt this was most likely a large cyst adenoma. Patient was discharged to home on her baseline medications of: - aspirin 81 mg by mouth daily - levothyroxine 224 mcg by mouth daily - simvastatin 20 mg by mouth daily - trazodone 100 mg by mouth at bedtime - amoxicillin 500 mg by mouth three times a day times seven days with e-scribe to her pharmacy. She was instructed to continue changing her dressing daily. Her father stated he would be more than capable in doing this. Additional dressings were given to the patient until followup with patient's primary care provider (PCP) on 07/22/2016, when, based on improvement of the wound, further dressings could be ordered. Additionally, she was instructed to follow up in one week with Dr. Samaniego for planned laparotomy, as above.
== END 2016-07-20 17:35 | disposition home or self-care (01) | DRG 720 ==
LOC: M ED 15:55 → M ED INP 19:58 → M MSPAV 22:35
PROVIDERS: ADMIT Internal Medicine; ATTEND Family Medicine
DX: A40.1 Sepsis due to streptococcus, group B (principal); N17.9 Acute kidney failure, unspecified; D61.811 Other drug-induced pancytopenia; E66.01 Morbid (severe) obesity due to excess calories; N83.202 Unspecified ovarian cyst, left side; E78.5 Hyperlipidemia, unspecified; E03.9 Hypothyroidism, unspecified; L03.115 Cellulitis of right lower limb; F84.0 Autistic disorder; Z85.41 Personal history of malignant neoplasm of cervix uteri; R73.01 Impaired fasting glucose; Z79.82 Long term (current) use of aspirin; Z79.899 Other long term (current) drug therapy; Z88.2 Allergy status to sulfonamides; Z88.5 Allergy status to narcotic agent; N13.30 Unspecified hydronephrosis

== ENCOUNTER → 2016-10-18 | Outpatient (REF) | payer MEDICAID ==
[~2016-10-18] MED LIST: ASPI1TAB PO; ASPI81TA85 PO; CLINDAMYCIN; FISH1000 PO; FISH1200 PO; LEVO112T2; LEVO112T25 PO; META58.612 PO; MOTR200T44 PO; SIMV20TA2; SIMV20TA2 PO; TRAZ-136; TRAZ-136 PO; TYLE500T78 PO
[2016-10-18 19:52] LABS: BASO % 0.6 % (0.0-1.0); EOS # 0.1 K/mm3 (0.0-0.50); EOS % 1.4 % (0.0-3.0); LARGE UNSTAINED CELL # 0.1 K/mm3 (0.0-0.4); LARGE UNSTAINED CELL % 1.3 % (0.0-4.0); LYMPH # 1.8 K/mm3 (1.5-4.5); MEAN CORPUSCULAR HEMOGLOBIN 29.9 pg (27.0-33.0); MEAN CORPUSCULAR HGB CONC 34.7 g/dl (32.0-36.5); MEAN CORPUSCULAR VOLUME 86.2 fl (80.0-96.0); MONO # 0.2 K/mm3 (0.0-0.8); MONO % 4.1 % (0.0-5.0); NEUTROPHILS % 49.7 % (36.0-66.0); PLATELET COUNT, AUTOMATED 239 k/mm3 (150-450); RED CELL DISTRIBUTION WIDTH 14.5 % (11.5-14.5)
[2016-10-18 20:05] LABS: ANION GAP 11 MEQ/L (8-16); BLOOD UREA NITROGEN 10 MG/DL (7-18); CALCIUM LEVEL 9.4 MG/DL (8.5-10.1); CARBON DIOXIDE LEVEL 27 MEQ/L (21-32); CHLORIDE LEVEL 104 MEQ/L (98-107); CREATININE FOR GFR 0.71 MG/DL (0.55-1.02); GLOMERULAR FILTRATION RATE > 60.0 (>60); GLUCOSE, FASTING 150 MG/DL (70-105); POTASSIUM SERUM 3.8 MEQ/L (3.5-5.1); SODIUM LEVEL 142 MEQ/L (136-145)
== END ==
LOC: M SFHCADAM 11:19
PROVIDERS: ATTEND Physician Assistant Medical
DX: Z01.818 Encounter for other preprocedural examination (principal)

== ENCOUNTER 2016-10-23 08:35 | Day surgery (SDC) | payer MEDICAID ==
[~2016-10-23] VITALS: Ht 170.2 cm; Wt 138.8 kg
[~2016-10-23 08:35] MED LIST changes: -CLINDAMYCIN; +LIDOCAINE 2% INJ 100 MG/5 ML SDV (FOR ANES.) As Ordered ONE; +MIDAZOLAM INJ 2 MG/2 ML VIAL (J2250) As Ordered ONE; -MOTR200T44 PO; +ONDANSETRON 4MG/2ML VIAL (J2405) As Ordered ONE; +PROPOFOL 200 MG/20 ML VIAL As Ordered ONE; +ROCURONIUM BROMIDE 50 MG/5 ML VIAL/SYRINGE As Ordered ONE; +fentaNYL 100 MCG/2 ML INJECTION (J3010) As Ordered ONE
[2016-10-23] MEDS ORDERED: LR 1,000 ML IV ONE (09:00)
[2016-10-23] MEDS ORDERED: LIDOCAINE 2% W/ EPINEPHRINE 1.7 ML DENTAL INJ As Ordered ONE (13:17)
[2016-10-23] MEDS ORDERED: ONDANSETRON 4MG/2ML VIAL (J2405) As Ordered ONE (18:16)
[2016-10-23] MEDS ORDERED: KETOROLAC 30 MG/ML VIAL (J1885) As Ordered ONE (18:42)
[2016-10-23] MEDS ORDERED: fentaNYL 100 MCG/2 ML INJECTION (J3010) IV PRN (18:45)
[2016-10-23] MEDS ORDERED: ONDANSETRON 4MG/2ML VIAL (J2405) IV PRN (18:45)
[2016-10-23] MEDS ORDERED: LR 1,000 ML IV SCH (18:45)
[2016-10-23] MEDS ORDERED: KETOROLAC 30 MG/ML VIAL (J1885) IV SCH (19:00)
[2016-10-23 19:50] VITALS: BP 155/81
--- NOTE | 2016-10-25 19:00 | RO ---
DATE OF PROCEDURE: 10/23/2016 PREOPERATIVE DIAGNOSIS: Dental caries. POSTOPERATIVE DIAGNOSIS: Dental caries. PROCEDURE: Exam, full mouth radiographs, prophy, varnish, fillings, root canals with post placement, temporary crown cementation SURGEON: Pavel Kendrick DDS HUNTING GUIDE: None ANESTHESIA: General PROCEDURE: The patient, Karen Loya, was brought to the operating room and placed onto the operating room table in the supine position. After all the monitor equipment was attached to the patient, vital signs were checked and general anesthetic medicaments were delivered via inhalation. Nasal intubation proceeded and tube extension was secured into position after breathing was monitored. The patient was then prepped and draped for dental procedures. The intraoral cavity was inspected and suctioned free of gross secretions. One large moist throat pack was placed. Mouth prop placed. Radiographs taken. Four bitewings and seven periapicals, then an additional six periapicals taken pertaining to root canal treatment on teeth number 4, 7, 8 and 9. Comprehensive examination completed. Prophy of all dentition completed. Decay removal followed by composite condensation was completed on the following teeth and surfaces: #3 MOBL; #6 DFL; #12 DOL; #14 MOBL; #21-28 MDB; #29 DOBL; #30 MOB. [place]-Light indirect application completed in teeth numbers 25 and 26. Root canal treatment completed on teeth 4, 7, 8 and 9. Post cementation completed on teeth number 4, 7, 8 and 9. [place] preparation completed on teeth number 4, 7, 8 and 9. Temporary crowns fabricated and cemented on teeth number 4, 7, 8 and 9. [place] varnish application completed on remaining dentition. Final removal of all gross fluids from intraoral and extraoral structures. Bite block removed. Patient then left by dental team in the care of presiding anesthesiologist. NOTE: There was continuous removal of all gross fluids throughout the duration of all performed dental procedure. CHRISTOPHERD
== END 2016-10-23 19:50 | disposition home or self-care (01) ==
LOC: M SDC 08:35
PROVIDERS: ATTEND Dentist General Practice
DX: K02.9 Dental caries, unspecified (principal); E03.9 Hypothyroidism, unspecified; F84.0 Autistic disorder; E66.01 Morbid (severe) obesity due to excess calories; Z79.82 Long term (current) use of aspirin; Z79.899 Other long term (current) drug therapy; Z88.0 Allergy status to penicillin; Z88.2 Allergy status to sulfonamides; Z88.8 Allergy status to other drugs, medicaments and biological substances
CPT/HCPCS: 70310; D0220; D0230; D0274; D2332; D2393; D2394; D2799; D3320; D9223; J1885; J2250; J2405; J3010

== ENCOUNTER → 2016-11-26 | Outpatient (REF) | payer MEDICAID ==
[~2016-11-26] MED LIST changes: +CLINDAMYCIN; -LIDOCAINE 2% INJ 100 MG/5 ML SDV (FOR ANES.) As Ordered ONE; -MIDAZOLAM INJ 2 MG/2 ML VIAL (J2250) As Ordered ONE; +MOTR200T44 PO; -ONDANSETRON 4MG/2ML VIAL (J2405) As Ordered ONE; -PROPOFOL 200 MG/20 ML VIAL As Ordered ONE; -ROCURONIUM BROMIDE 50 MG/5 ML VIAL/SYRINGE As Ordered ONE; -fentaNYL 100 MCG/2 ML INJECTION (J3010) As Ordered ONE
[2016-11-26 15:00] LABS: ALBUMIN 3.5 GM/DL (3.2-5.2); ALBUMIN/GLOBULIN RATIO 1.06 (1.00-1.93); ALKALINE PHOSPHATASE 67 U/L (45-117); ALT/SGPT 46 U/L (12-78); ANION GAP 8 MEQ/L (8-16); AST/SGOT 26 U/L (15-37); BILIRUBIN,TOTAL 0.4 MG/DL (0.2-1.0); BLOOD UREA NITROGEN 10 MG/DL (7-18); CALCIUM LEVEL 9.1 MG/DL (8.5-10.1); CARBON DIOXIDE LEVEL 27 MEQ/L (21-32); CHLORIDE LEVEL 104 MEQ/L (98-107); CHOLESTEROL LEVEL 166 MG/DL (<200); CREATININE FOR GFR 0.72 MG/DL (0.55-1.02); FREE T4 1.01 NG/DL (0.76-1.46); GLOMERULAR FILTRATION RATE > 60.0 (>60); GLUCOSE, FASTING 126 MG/DL (70-105); SODIUM LEVEL 139 MEQ/L (136-145); TOTAL PROTEIN 6.8 GM/DL (6.4-8.2); TRIGLYCERIDES LEVEL 603 MG/DL (<150)
== END ==
LOC: M SFHCADAM 08:09
PROVIDERS: ATTEND Physician Assistant Medical
DX: R73.01 Impaired fasting glucose (principal); E03.9 Hypothyroidism, unspecified; Z85.42 Personal history of malignant neoplasm of other parts of uterus; E55.9 Vitamin D deficiency, unspecified

== ENCOUNTER 2016-12-02 06:14 | Inpatient (IN) | payer MEDICAID ==
[~2016-12-02] VITALS: Ht 170.2 cm; Wt 138.3 kg
[2016-12-02] VITALS (7 sets, daily range): BP systolic 118–141; BP diastolic 59–84
[~2016-12-02 06:14] MED LIST changes: -CLINDAMYCIN; -MOTR200T44 PO
[2016-12-02] MEDS ORDERED: LR 1,000 ML IV SCH ×2 (06:30→11:15)
[2016-12-02] MEDS ORDERED: HEPARIN SOD (PORCINE) 5000 UNITS/ML VIAL SQ ONE (06:30)
[2016-12-02 06:49] LABS: MEAN CORPUSCULAR HEMOGLOBIN 29.6 pg (27.0-33.0); MEAN CORPUSCULAR HGB CONC 33.5 g/dl (32.0-36.5); MEAN CORPUSCULAR VOLUME 88.3 fl (80.0-96.0); RED CELL DISTRIBUTION WIDTH 13.7 % (11.5-14.5); WHITE BLOOD COUNT 4.2 10^3/uL (4.0-10.0)
[2016-12-02] MEDS ORDERED: fentaNYL 100 MCG/2 ML INJECTION (J3010) As Ordered ONE ×2 (07:07→07:08)
[2016-12-02] MEDS ORDERED: ROCURONIUM BROMIDE 50 MG/5 ML VIAL/SYRINGE As Ordered ONE ×2 (07:07→08:05)
[2016-12-02] MEDS ORDERED: LIDOCAINE 2% INJ 100 MG/5 ML SYRINGE As Ordered ONE (07:07)
[2016-12-02] MEDS ORDERED: PROPOFOL 200 MG/20 ML VIAL As Ordered ONE (07:07)
[2016-12-02] MEDS ORDERED: MIDAZOLAM INJ 2 MG/2 ML VIAL (J2250) As Ordered ONE (07:08)
[2016-12-02] MEDS ORDERED: HumaLOG INSULIN (NovoLOG) PER UNIT As Ordered ONE (07:12)
[2016-12-02] MEDS ORDERED: BUPIVACAINE HCL 0.25% 30 ML VIAL As Ordered ONE (07:15)
[2016-12-02] MEDS ORDERED: VASOPRESSIN INJ 20 UNITS/ML VIAL As Ordered ONE (07:15)
[2016-12-02] MEDS ORDERED: HumaLOG INSULIN (NovoLOG) PER UNIT SC ONE (07:30)
[2016-12-02] MEDS ORDERED: HumuLIN R (REGULAR) INSULIN (NovoLIN R) **100U/ML** PER UNIT SC ONE (07:30)
[2016-12-02] MEDS ORDERED: NEOSTIGMINE 10 MG/10 ML VIAL (J2710) As Ordered ONE (08:15)
[2016-12-02] MEDS ORDERED: GLYCOPYRROLATE INJ 0.2 MG/ML 2 ML VIAL As Ordered ONE (08:15)
[2016-12-02] MEDS ORDERED: ONDANSETRON 4MG/2ML VIAL (J2405) As Ordered ONE ×2 (08:15→11:54)
[2016-12-02] MEDS ORDERED: KETOROLAC 60 MG/2 ML VIAL (J1885) As Ordered ONE (08:16)
[2016-12-02] MEDS ORDERED: HYDROmorphone HCL 2 MG/ML 1ML VIAL (J1170) As Ordered ONE (08:30)
[2016-12-02] MEDS ORDERED: NORCO, ANEXSIA 5/325MG TABLET (HYDROcodone/ACETAMINOPHEN) PO PRN ×3 (11:15)
[2016-12-02] MEDS ORDERED: METOCLOPRAMIDE INJ 10MG/2ML VIAL (J2765) IV PRN (11:15)
[2016-12-02] MEDS ORDERED: MORPHINE 4 MG/ML 1ML SYRINGE IV PRN (11:15)
[2016-12-02] MEDS ORDERED: MEPERIDINE INJ 25 MG/ML VIAL (J2175) IV PRN (11:15)
[2016-12-02] MEDS ORDERED: fentaNYL 100 MCG/2 ML INJECTION (J3010) IV PRN (11:15)
[2016-12-02] MEDS ORDERED: ONDANSETRON 4MG/2ML VIAL (J2405) IV PRN ×2 (11:15)
[2016-12-02] MEDS ORDERED: KETOROLAC 30 MG/ML VIAL (J1885) IV PRN (11:15)
[2016-12-02] MEDS: LR 1,000 ML IV SCH ×2 (13:12→19:15)
--- NOTE | 2016-12-02 14:07 | RO ---
DATE OF PROCEDURE: 12/02/2016 PREPROCEDURE DIAGNOSIS: Large cystic ovarian mass. POSTPROCEDURE DIAGNOSIS: Large cystic ovarian mass. PROCEDURE: Exploratory laparotomy, left ovarian cystectomy with left oophorectomy. SURGEON: Bradley Samaniego MD SATIN FINISHER: Claudio Keen DO ANESTHESIA: General endotracheal. ESTIMATED BLOOD LOSS: 200 mL. URINE OUTPUT: 350 mL. FINDINGS: 20 cm fluid-filled cystic mass involving the left ovary. There is no discernable fallopian tube present. The uterus was surgically absent. There is no identifiable right adnexa. A large cystic mass is adherent to the sigmoid colon with multiple bowel adhesions as well. DESCRIPTION OF PROCEDURE: Operative summary: The patient was taken to the operating room where general endotracheal anesthesia was induced. She was prepped and draped in a sterile fashion in the supine position. A Varghese catheter was placed. Vertical midline incision was created with a scalpel and carried through to the fascia. The fascia was nicked and extended superiorly and inferiorly. The fascia was dissected until the midline was identified. Peritoneal cavity was entered. Bowel was packed away with moist laparotomy sponges. Adhesions to the left ovarian mass were taken down sharply with Metzenbaum scissors. Blunt dissection was also performed. The mass was free and elevated. Mass appeared to be coming off the left ovary. The mass was removed intact and sent to pathology. Left ovary was then dissected free. The infundibulopelvic (IP) ligament was identified away from the left ureter, and the IP ligament was crossclamped with Boni clamp, incised, suture ligated with #0 Vicryl suture. The area was extensively examined. There was no evidence of a right ovary or fallopian tube. The uterus was surgically absent. The omentum was normal. No other pelvic mass was seen. There was perhaps a small serosal abrasion to the sigmoid colon. Dr. Pedro Robertson was consulted intraoperatively, who felt that no repair was needed. The pelvis was irrigated. All sponges and instruments removed. The peritoneum and fascia closed with #1 PDS in a running fashion. The subcutaneous layer was irrigated and closed with #1-0 Vicryl suture. Skin was closed with august. Sponge, instrument, and needle counts were correct.
[2016-12-02] MEDS: HEPARIN SOD (PORCINE) 5000 UNITS/ML VIAL SQ SCH ×2 (15:19→21:52)
[2016-12-02] MEDS ORDERED: ACETAMINOPHEN 500 MG TAB PO ONE (21:30)
[2016-12-02] MEDS: DOCUSATE SODIUM 100 MG CAP PO SCH (21:51)
[2016-12-02] MEDS: SIMVASTATIN 40 MG TAB PO SCH (21:51)
[2016-12-02] MEDS: traZODone 100 MG TAB PO SCH (21:51)
[2016-12-03] VITALS (7 sets, daily range): BP systolic 116–138; BP diastolic 58–78
[2016-12-03] MEDS: LR 1,000 ML IV SCH (03:15)
[2016-12-03] MEDS: HEPARIN SOD (PORCINE) 5000 UNITS/ML VIAL SQ SCH ×3 (06:06→21:21)
[2016-12-03 06:57] LABS: MEAN CORPUSCULAR HEMOGLOBIN 29.7 pg (27.0-33.0); MEAN CORPUSCULAR HGB CONC 33.7 g/dl (32.0-36.5); MEAN CORPUSCULAR VOLUME 88.1 fl (80.0-96.0); RED CELL DISTRIBUTION WIDTH 13.9 % (11.5-14.5); WHITE BLOOD COUNT 5.6 10^3/uL (4.0-10.0)
[2016-12-03 07:17] LABS: ANION GAP 6 MEQ/L (8-16); BLOOD UREA NITROGEN 8 MG/DL (7-18); CALCIUM LEVEL 8.7 MG/DL (8.5-10.1); CARBON DIOXIDE LEVEL 28 MEQ/L (21-32); CHLORIDE LEVEL 103 MEQ/L (98-107); CREATININE FOR GFR 0.77 MG/DL (0.55-1.02); GLOMERULAR FILTRATION RATE > 60.0 (>60); GLUCOSE, FASTING 148 MG/DL (70-105); POTASSIUM SERUM 3.8 MEQ/L (3.5-5.1); SODIUM LEVEL 137 MEQ/L (136-145)
[2016-12-03] MEDS: DOCUSATE SODIUM 100 MG CAP PO SCH ×2 (09:14→21:20)
[2016-12-03] MEDS: SIMVASTATIN 40 MG TAB PO SCH (21:20)
[2016-12-03] MEDS: traZODone 100 MG TAB PO SCH (21:21)
[2016-12-03] MEDS ORDERED: ACETAMINOPHEN 500 MG TAB PO ONE (21:45)
[2016-12-03] MEDS: IBUPROFEN 800 MG TAB PO PRN (21:56)
[2016-12-04 02:00] VITALS: BP 110/60
[2016-12-04] MEDS: HEPARIN SOD (PORCINE) 5000 UNITS/ML VIAL SQ SCH (05:21)
[2016-12-04 06:00] VITALS: BP 107/56
[2016-12-04] MEDS: DOCUSATE SODIUM 100 MG CAP PO SCH ×2 (09:55→20:29)
[2016-12-04 10:00] VITALS: BP 121/82
[2016-12-04 14:00] VITALS: BP 123/84
[2016-12-04] MEDS: traZODone 100 MG TAB PO SCH (20:29)
[2016-12-04] MEDS: SIMVASTATIN 40 MG TAB PO SCH (20:29)
[2016-12-04 22:00] VITALS: BP 132/62
[2016-12-05] MEDS: IBUPROFEN 800 MG TAB PO PRN (00:56)
[2016-12-05 06:00] VITALS: BP 106/58
[2016-12-05] MEDS: DOCUSATE SODIUM 100 MG CAP PO SCH ×2 (08:41→08:50)
[2016-12-05 14:00] VITALS: BP 121/70
[2016-12-05 20:25] VITALS: BP 158/78
[2016-12-05] MEDS: traZODone 100 MG TAB PO SCH (21:12)
[2016-12-05] MEDS: SIMVASTATIN 40 MG TAB PO SCH (21:12)
[2016-12-06 05:00] VITALS: BP 130/77
[2016-12-06] MEDS: DOCUSATE SODIUM 100 MG CAP PO SCH (08:25)
[2016-12-06] MEDS ORDERED: MOTR200T44 PO (08:38)
[2016-12-06] MEDS ORDERED: INFLUENZA QUADRIVALENT PF VACCINE 0.5ML SYRINGE (90686) IM ONE (10:15)
--- NOTE | 2016-12-06 14:31 | DSES ---
DATE OF ADMISSION: 12/02/2016 DATE OF DISCHARGE: 12/06/2016 HISTORY: A 36-year-old 0 female presents for treatment of a large cystic pelvis mass. She had a medical history significant for autism, morbid obesity, and cervical cancer. CT scan in 07/2016 showed an incidental finding with 20 cm pelvic mass, extrinsic compression of the renal collecting system. She is nonverbal, but does not appear to have any abdominal pain. HOSPITAL COURSE: On 12/02/2016 the patient was admitted for exploratory laparotomy with left ovarian cystectomy as well as left oophorectomy. There was no right ovarian tissue that could be identified upon thorough examination. Her postoperative course as significant for fevers during the evening hours on the first two postoperative nights. The fevers resolved spontaneously. She has adequate return of bladder and bowel function. She was deemed stable for discharge on postoperative day #4. ADMISSION DIAGNOSIS: Large cystic ovarian mass. DISCHARGE DIAGNOSIS: Left ovarian cyst adenoma. PROCEDURE: Laparotomy with left ovarian cystectomy and left oophorectomy. DISPOSITION: The patient will followup with Dr. Samaniego within 1 week for evaluation of the incision and removal of august. Instructions were reviewed with the patient's fish net maker, Stephani.
== END 2016-12-06 11:40 | disposition home or self-care (01) | DRG 513 ==
LOC: M OR 06:14 → M MSPAV 11:43
PROVIDERS: ADMIT Specialist; ATTEND Specialist
PROC: 0UT10ZZ Resection of Left Ovary, Open Approach (ICD-10-PCS; principal; 2016-12-02 07:30)
DX: D27.1 Benign neoplasm of left ovary (principal); Z68.42 Body mass index [BMI] 45.0-49.9, adult; E66.01 Morbid (severe) obesity due to excess calories; F84.0 Autistic disorder; R50.82 Postprocedural fever

== ENCOUNTER 2016-12-20 16:10 | Emergency (ER) | payer MEDICAID ==
[~2016-12-20] VITALS: Ht 170.2 cm; Wt 139.1 kg
[~2016-12-20 16:10] MED LIST changes: +MOTR200T44 PO
[2016-12-20] MEDS ORDERED: CLINDAMYCIN (16:19)
--- NOTE | 2016-12-20 18:30 | REPUSA ---
HISTORY: POST OP WOUND DRAINAGE. Surgery to remove ovarian cyst on 12/02/16. TECHNIQUE: Limited ultrasound imaging over the region of the abdominal incision. FINDINGS: The examination demonstrates a large intra-abdominal injury regulated loculated complex flu id collection measuring approximately 13.7 x 10.6 x 10.7 cm, consistent with large hematoma, seroma, and/or abscess. IMPRESSION: Large complex intra-abdominal fluid collection under the abdominal incision as discussed above. Clinical correlation and followup CT scan imaging may be warranted as clinically indicated. .
[2016-12-20 18:57] VITALS: BP 156/88
== END 2016-12-20 19:00 | disposition home or self-care (01) ==
LOC: M ED 16:10
DX: L76.82 Other postprocedural complications of skin and subcutaneous tissue (principal); E11.9 Type 2 diabetes mellitus without complications; F84.0 Autistic disorder; Z79.82 Long term (current) use of aspirin; Z79.899 Other long term (current) drug therapy; Z88.0 Allergy status to penicillin; Z88.5 Allergy status to narcotic agent; Z88.2 Allergy status to sulfonamides

== ENCOUNTER 2017-01-31 12:15 | Inpatient (IN) | payer MEDICAID ==
[~2017-01-31] VITALS: Ht 152.4 cm; Wt 135.6 kg
[~2017-01-31 12:15] MED LIST changes: +CLINDAMYCIN
[2017-01-31] MEDS ORDERED: ONDANSETRON 4MG/2ML VIAL (J2405) IV PRN (12:45)
[2017-01-31] MEDS ORDERED: ACETAMINOPHEN 500 MG TAB PO PRN (12:45)
[2017-01-31 14:48] VITALS: BP 154/91
[2017-01-31] MEDS ORDERED: FENO200C PO (14:56)
[2017-01-31] MEDS ORDERED: DRIS50002 PO (14:56)
[2017-01-31 15:15] LABS: BASO % 0.3 % (0.0-1.0); EOS # 0.1 10^3/uL (0.0-0.50); EOS % 1.3 % (0.0-3.0); IMMATURE GRANULOCYTE % 0.8 % (0-0); LYMPH # 1.1 10^3/uL (1.5-4.5); LYMPH % 27.2 % (24.0-44.0); MEAN CORPUSCULAR HEMOGLOBIN 28.6 pg (27.0-33.0); MEAN CORPUSCULAR HGB CONC 33.1 g/dl (32.0-36.5); MEAN CORPUSCULAR VOLUME 86.6 fl (80.0-96.0); MONO # 0.2 10^3/uL (0.0-0.8); MONO % 4.7 % (0.0-5.0); NEUTROPHILS # 2.5 10^3/uL (1.8-7.7); NEUTROPHILS % 65.7 % (36.0-66.0); PLATELET COUNT, AUTOMATED 285 10^3/uL (150-450); WHITE BLOOD COUNT 3.9 10^3/uL (4.0-10.0)
[2017-01-31 15:20] LABS: ALBUMIN 3.5 GM/DL (3.2-5.2); ALKALINE PHOSPHATASE 56 U/L (45-117); ALT/SGPT 50 U/L (12-78); ANION GAP 6 MEQ/L (8-16); AST/SGOT 28 U/L (7-37); BILIRUBIN,TOTAL 0.2 MG/DL (0.2-1.0); BLOOD UREA NITROGEN 10 MG/DL (7-18); CALCIUM LEVEL 9.1 MG/DL (8.5-10.1); CARBON DIOXIDE LEVEL 27 MEQ/L (21-32); CHLORIDE LEVEL 106 MEQ/L (98-107); CREATININE FOR GFR 0.83 MG/DL (0.55-1.02); GLOMERULAR FILTRATION RATE > 60.0 (>60); GLUCOSE, FASTING 218 MG/DL (70-105); POTASSIUM SERUM 3.7 MEQ/L (3.5-5.1); SODIUM LEVEL 139 MEQ/L (136-145)
--- NOTE | 2017-01-31 16:24 | HPE ---
DATE OF ADMISSION: 01/31/2017 HISTORY OF PRESENT ILLNESS: A 37-year-old 0 female, status post exploratory laparotomy with removal of large left ovarian cyst on 12/02/2016, who presents with drainage from the central part of her vertical midline incision for the last day. She has had drainage on-and-off since the surgery, but it increased today. Her father, who is her dry goods clerk, noted pus coming from the incision. Upon evaluation in the office, a large abscess was noted in the subcutaneous tissue, and it was drained in the office. The wound had to be packed, and there was a surrounding cellulitis as well. The patient's history is significant for severe autism, and the patient is nonverbal. ALLERGIES: PENICILLIN, SULFA, OXYCODONE. MEDICAL HISTORY: 1. Autistic disorder. 2. Hyperlipidemia. 3. Hypothyroidism. 4. Morbid obesity. 5. Impaired fasting glucose. 6. History of cervical cancer resulting in hysterectomy. SURGICAL HISTORY: 1. Hysterectomy in 1999. 2. Cholecystectomy in 2009. 3. Left oophorectomy, exploratory laparotomy 12/02/2016. SOCIAL HISTORY: The patient's dry goods clerk denies cigarettes, alcohol or drug use. The patient lives with her father who is her primary dry goods clerk. FAMILY HISTORY: Noncontributory. PHYSICAL EXAMINATION: VITAL SIGNS: Blood pressure 154/91, pulse 81, temperature 99.4, respiratory rate 20. GENERAL: No apparent distress. HEAD/NECK: Normal. LUNGS: Clear. HEART: Regular rate and rhythm. ABDOMEN: Nontender. Soft with drainage from central part of the incision and abscess noted superficially. Upon probing the incision, the abscess cavity is large and extends down to the fascia. The fascia appears to be intact. EXTREMITIES: Nontender. ASSESSMENT: A 37-year-old zero female with multiple medical issues including severe autism, presents with a wound abscess two months after exploratory laparotomy. PLAN: Start intravenous (IV) vancomycin for cellulitis after prolonged infection. Will recommend daily dressing changes to the wound. It would be very difficult for a home visiting nurse to pack a wound that is this deep. The patient is admitted on 01/31/2017.
[2017-01-31] MEDS: VANCOMYCIN HCL 1,000 MG, VIAL MATE ADAPTER 1 EACH in D5W 250 ML IV SCH ×2 (16:34→23:32)
--- NOTE | 2017-01-31 16:56 | PHACANCOPD ---
PHARMACY VANCOMYCIN DOSING Pt Demographics Demographics Patient Age:37 , Weight:135.600 , Gender: female Adjusted Body Weight Date: 01/31/17, Adjusted Body Weight: Kg Events Past 24 Hours Events Past 24 Hours: YES: Fever, NO: Dialysis, Diuretic Therapy, Change in CrCl, Elevation in WBC, Pending Diagnostics, Pending Procedures, Other Vancomycin Vancomycin indication: wound abscess Vancomycin Target Ranges: 15-20 mcg/ml Vancomycin Load Y/N: No Load Dose Date Time Vancomycin Load Dose: Date: Time: Vancomycin Dose Date: 01/31/17. Current Vancomycin Dose: [1g IV q8h @16] Intermittent Dosing?: No Labs Labs Item Value Date Time Creatinine 0.83 MG/DL 01/31/17 1438 White Blood Count 3.9 10^3/uL L 01/31/17 1438 Vital Signs Label Value Date Time Patient Temperature 99.4 degrees F 01/31/17 1448 Temperature Source Temporal 01/31/17 1448 Micro Microbiology 01/31/17 Blood Culture, Received Pending Creatinine Clearance Date:01/31/17. Creatinine Clearance: [>100 ml/min using adjusted BW]. Pending Labs Vanco trough scheduled 02/02 @07:00 Assessment and Plan Maintaining Current Dose?: Yes Reason for dose change: No Dose Change Pharmacist Note Pharmacist Note Date: 01/31/17. Pharmacist note: pt has been admitted for a post op wound abscess - ovarian cyst removal on 12/02/16. It was cultured on 12/20/16 during an ER visit and only grew corynebacterium. It was drained again today, cultures are pending. Pt did not receive any post op antibiotics or any outpatient antibiotics since her surgery. She has not been on vancomycin at our facility in the past, nor does she have a Hx of MRSA. I have started her on vancomycin 1g IV q8h with a trough scheduled Friday morning. We will continue to monitor and make adjustments as necessary. Maxime Reis Pharm.D. Jan 31, 2017 16:56
[2017-01-31 22:00] VITALS: BP 134/74
[2017-02-01 06:00] VITALS: BP 121/72
[2017-02-01] MEDS: VANCOMYCIN HCL 1,000 MG, VIAL MATE ADAPTER 1 EACH in D5W 250 ML IV SCH ×2 (10:19→16:55)
[2017-02-01 14:00] VITALS: BP 146/86
[2017-02-01] MEDS: metroNIDAZOLE 500 MG in APPROPRIATE DILUENT 1 EA IV SCH (18:17)
[2017-02-01] MEDS: CEFTRIAXONE SOD 2 GM in APPROPRIATE DILUENT 1 EA IV SCH (20:14)
[2017-02-01] MEDS: SIMVASTATIN 40 MG TAB PO SCH (20:14)
[2017-02-01] MEDS: traZODone 100 MG TAB PO SCH (20:14)
[2017-02-01 22:00] VITALS: BP 129/76
[2017-02-02] MEDS: VANCOMYCIN HCL 1,000 MG, VIAL MATE ADAPTER 1 EACH in D5W 250 ML IV SCH ×4 (00:04→23:31)
[2017-02-02] MEDS: metroNIDAZOLE 500 MG in APPROPRIATE DILUENT 1 EA IV SCH ×3 (01:43→18:48)
[2017-02-02] MEDS: LEVOTHYROXINE 75MCG TABLET (0.075MG) PO SCH (05:41)
[2017-02-02 06:00] VITALS: BP 101/57
[2017-02-02] MEDS: ASPIRIN 81 MG ENTERIC TAB PO SCH (08:37)
[2017-02-02 14:00] VITALS: BP 130/78
[2017-02-02] MEDS: SIMVASTATIN 40 MG TAB PO SCH (20:50)
[2017-02-02] MEDS: CEFTRIAXONE SOD 2 GM in APPROPRIATE DILUENT 1 EA IV SCH (20:50)
[2017-02-02] MEDS: traZODone 100 MG TAB PO SCH (20:50)
[2017-02-02 22:00] VITALS: BP 146/83
[2017-02-03] MEDS: metroNIDAZOLE 500 MG in APPROPRIATE DILUENT 1 EA IV SCH ×2 (02:27→10:00)
[2017-02-03 06:00] VITALS: BP 107/63
[2017-02-03] MEDS: LEVOTHYROXINE 75MCG TABLET (0.075MG) PO SCH (06:17)
--- NOTE | 2017-02-03 06:19 | REP ---
KUB, TWO VIEWS: HISTORY: Wound pack missing. Air is present in small and large intestine. There are no air fluid levels or dilated loops of intestine. There is no pneumoperitoneum. Surgical clips are present in the abdomen and pelvis. There is no radiopaque foreign body. There is scoliosis convex to the left. IMPRESSION: Nonspecific bowel gas pattern. Signed by Bradley Ruiz MD 02/03/2017 08:23 A
[2017-02-03] MEDS: VANCOMYCIN HCL 1,000 MG, VIAL MATE ADAPTER 1 EACH in D5W 250 ML IV SCH (09:04)
[2017-02-03] MEDS: ASPIRIN 81 MG ENTERIC TAB PO SCH (09:04)
--- NOTE | 2017-02-03 19:38 | DSES ---
DATE OF ADMISSION: 01/31/2017 DATE OF DISCHARGE: 02/03/2017 37-year-old G) female status post exploratory laparotomy with removal of large left ovarian cyst on 12/02/2016, who presents with drainage from the central part of her vertical midline incision for one day. She has had drainage on-and-off since the surgery, but it increased today. Her father, who is her stope miner, noted pus coming from the incision. Upon evaluation in the office, a large abscess was noted in the subcutaneous tissue, and it was drained in the office. The wound had to be packed, and there was a surrounding cellulitis as well. The patient's history is significant for severe autism, and the patient is nonverbal. HOSPITAL COURSE: The patient was admitted on 01/31/2017 with a diagnosis of wound abscess complicated by cellulitis. The patient was started on IV vancomycin due to a history of multiple antibiotic allergies. She had no fevers during hospitalization. Blood work was in the normal limits. On the second hospital day, the patient was noted to still have significant erythema consistent with cellulitis that did not improve with vancomycin. Due to the possibility of multiple organisms, in a patient with multiple allergies, antibiotic coverage was increased to vancomycin, ceftriaxone and metronidazole. She had complete resolution of her cellulitis by hospital day #3. Wound packing was done daily and there was improvement in the wound with decrease in the purulent drainage. Patient had abdominal x-ray on hospital day #2 because the packing was missing, it is likely that the patient removed the packing herself in the bathroom and flushed it down the toilet as the patient is nonverbal and severely autistic she probably did not know any better. X-ray was negative for any retained packing. Hospital day #4 patient was stable for discharge. ADMISSION DIAGNOSIS: Postoperative wound abscess complicated with cellulitis. Patient will have daily dressing changes for which she will present to the office. She no longer needs antibiotic therapy.
== END 2017-02-03 12:05 | disposition home or self-care (01) | DRG 721 ==
LOC: M MS5PR 14:13
PROVIDERS: ADMIT Specialist; ATTEND Specialist
DX: T81.4XXA Infection following a procedure, initial encounter (principal); Z68.43 Body mass index [BMI] 50.0-59.9, adult; E66.01 Morbid (severe) obesity due to excess calories; L03.311 Cellulitis of abdominal wall; F84.0 Autistic disorder; E78.5 Hyperlipidemia, unspecified; E03.9 Hypothyroidism, unspecified; Y83.8 Other surgical procedures as the cause of abnormal reaction of the patient, or of later complication, without mention of misadventure at the time of the procedure

== ENCOUNTER → 2017-04-17 | Outpatient (REF) | payer MEDICAID ==
[2017-04-17 12:40] LABS: BASO % 0.8 % (0.0-1.0); EOS # 0.1 10^3/uL (0.0-0.50); EOS % 2.7 % (0.0-3.0); HEMOGLOBIN 11.6 g/dl (12.0-16.0); IMMATURE GRANULOCYTE % 0.5 % (0-3.0); LYMPH # 1.6 10^3/uL (1.5-4.5); LYMPH % 43.6 % (24.0-44.0); MEAN CORPUSCULAR HEMOGLOBIN 27.3 pg (27.0-33.0); MEAN CORPUSCULAR HGB CONC 32.2 g/dl (32.0-36.5); MEAN CORPUSCULAR VOLUME 84.7 fl (80.0-96.0); MONO # 0.3 10^3/uL (0.0-0.8); MONO % 7.7 % (0.0-5.0); NEUTROPHILS # 1.6 10^3/uL (1.8-7.7); NEUTROPHILS % 44.7 % (36.0-66.0); PLATELET COUNT, AUTOMATED 285 10^3/uL (150-450); RED BLOOD COUNT 4.25 10^6/uL (4.00-5.40); RED CELL DISTRIBUTION WIDTH 14.6 % (11.5-14.5); WHITE BLOOD COUNT 3.7 10^3/uL (4.0-10.0)
[2017-04-17 13:05] LABS: TOTAL 25(OH) VITAMIN D 17.3 NG/ML (30.0-100.0)
[2017-04-17 13:19] LABS: ESTIMATED AVERAGE GLUCOSE 134 MG/DL (60-110); HEMOGLOBIN A1c 6.3 %
[2017-04-17 13:42] LABS: ALBUMIN 3.7 GM/DL (3.2-5.2); ALBUMIN/GLOBULIN RATIO 1.19 (1.00-1.93); ALKALINE PHOSPHATASE 57 U/L (45-117); ALT/SGPT 33 U/L (12-78); ANION GAP 9 MEQ/L (8-16); AST/SGOT 20 U/L (7-37); BILIRUBIN,TOTAL 0.2 MG/DL (0.2-1.0); BLOOD UREA NITROGEN 11 MG/DL (7-18); CARBON DIOXIDE LEVEL 25 MEQ/L (21-32); CHLORIDE LEVEL 107 MEQ/L (98-107); CHOLESTEROL LEVEL 131 MG/DL (<200); CHOLESTEROL RISK RATIO 3.447 (<5); CREATININE FOR GFR 0.72 MG/DL (0.55-1.30); FREE T4 1.19 NG/DL (0.76-1.46); GLOMERULAR FILTRATION RATE > 60.0 (>60); GLUCOSE, FASTING 127 MG/DL (70-100); HDL CHOLESTEROL 38 MG/DL (>40); MAGNESIUM LEVEL 2.1 MG/DL (1.8-2.4); NON-HDL-C 93 MG/DL; POTASSIUM SERUM 4.3 MEQ/L (3.5-5.1); SODIUM LEVEL 141 MEQ/L (136-145); TOTAL PROTEIN 6.8 GM/DL (6.4-8.2); TRIGLYCERIDES LEVEL 205 MG/DL (<150)
[2017-04-18 21:48] LABS: CREATININE, URINE 51.5 MG/DL; MALB URINE SIEMENS 5.3 MG/L; MAU/CREAT RATIO 10.2 MCG/MG (0.0-30.0)
== END ==
LOC: M SFHCADAM 08:16
DX: E03.9 Hypothyroidism, unspecified (principal); E78.1 Pure hyperglyceridemia; R73.01 Impaired fasting glucose; E55.9 Vitamin D deficiency, unspecified
CPT/HCPCS: 83735

== ENCOUNTER → 2017-10-17 | Outpatient (REF) | payer MEDICAID | LOC: M SFHCADAM 14:34 | DX: E66.01 Morbid (severe) obesity due to excess calories (principal); R73.01 Impaired fasting glucose; E55.9 Vitamin D deficiency, unspecified ==

== ENCOUNTER → 2017-10-18 | Outpatient (REF) | payer MEDICAID ==
[2017-10-18 17:15] LABS: ALBUMIN 3.6 GM/DL (3.2-5.2); ALBUMIN/GLOBULIN RATIO 1.24 (1.00-1.93); ALKALINE PHOSPHATASE 70 U/L (45-117); ALT/SGPT 70 U/L (12-78); ANION GAP 10 MEQ/L (8-16); AST/SGOT 33 U/L (7-37); BILIRUBIN,TOTAL 0.3 MG/DL (0.2-1.0); BLOOD UREA NITROGEN 14 MG/DL (7-18); CALCIUM LEVEL 8.9 MG/DL (8.5-10.1); CARBON DIOXIDE LEVEL 25 MEQ/L (21-32); CHLORIDE LEVEL 107 MEQ/L (98-107); CREATININE FOR GFR 0.73 MG/DL (0.55-1.30); GLOMERULAR FILTRATION RATE > 60.0 (>60); GLUCOSE, FASTING 138 MG/DL (70-100); POTASSIUM SERUM 4.4 MEQ/L (3.5-5.1); SODIUM LEVEL 142 MEQ/L (136-145); TOTAL PROTEIN 6.5 GM/DL (6.4-8.2)
[2017-10-18 17:20] LABS: ESTIMATED AVERAGE GLUCOSE 154 MG/DL (60-110)
[2017-10-20 09:52] LABS: TOTAL 25(OH) VITAMIN D 35.6 NG/ML (30.0-100.0)
== END ==
LOC: M SFHCADAM 09:28
DX: E66.01 Morbid (severe) obesity due to excess calories (principal); R73.01 Impaired fasting glucose; E55.9 Vitamin D deficiency, unspecified

== ENCOUNTER → 2018-04-16 | Outpatient (REF) | payer MEDICAID ==
[~2018-04-16] MED LIST changes: +DRIS50003 PO; +FENO200C PO; -TRAZ-136; -TRAZ-136 PO; +TRAZ-163; +TRAZ-163 PO
[2018-04-16 19:40] LABS: BASO % 0.4 % (0.0-1.0); EOS # 0.1 10^3/uL (0.0-0.50); EOS % 1.7 % (0.0-3.0); HEMATOCRIT 39.8 % (36.0-47.0); HEMOGLOBIN 13.6 g/dl (12.0-15.5); LYMPH # 2.1 10^3/uL (1.5-4.5); LYMPH % 42.8 % (24.0-44.0); MEAN CORPUSCULAR HEMOGLOBIN 29.6 pg (27.0-33.0); MEAN CORPUSCULAR HGB CONC 34.2 g/dl (32.0-36.5); MEAN CORPUSCULAR VOLUME 86.5 fl (80.0-96.0); MONO # 0.3 10^3/uL (0.0-0.8); MONO % 5.6 % (0.0-5.0); NEUTROPHILS # 2.4 10^3/uL (1.8-7.7); NEUTROPHILS % 49.1 % (36.0-66.0); PLATELET COUNT, AUTOMATED 257 10^3/uL (150-450); WHITE BLOOD COUNT 4.8 10^3/uL (4.0-10.0)
[2018-04-16 20:00] LABS: ALT/SGPT 81 U/L (12-78); BILIRUBIN,TOTAL 0.3 MG/DL (0.2-1.0); BLOOD UREA NITROGEN 14 MG/DL (7-18); CALCIUM LEVEL 9.3 MG/DL (8.5-10.1); CARBON DIOXIDE LEVEL 26 MEQ/L (21-32); CHLORIDE LEVEL 106 MEQ/L (98-107); CHOLESTEROL LEVEL 128 MG/DL (<200); CREATININE FOR GFR 0.75 MG/DL (0.55-1.30); GLOMERULAR FILTRATION RATE > 60.0 (>58); GLUCOSE, FASTING 138 MG/DL (70-100); HDL CHOLESTEROL 32 MG/DL (>40); LDL CHOLESTEROL 39 MG/DL (<100); NON-HDL-C 96 MG/DL; POTASSIUM SERUM 4.2 MEQ/L (3.5-5.1); SODIUM LEVEL 141 MEQ/L (136-145); THYROID STIMULATING HORMONE 0.384 uIU/ML (0.358-3.740); TOTAL PROTEIN 6.9 GM/DL (6.4-8.2); TRIGLYCERIDES LEVEL 286 MG/DL (<150)
[2018-04-16 20:02] LABS: CREATININE, URINE 56.9 MG/DL; MALB URINE SIEMENS 8.5 MG/L; MAU/CREAT RATIO 14.9 MCG/MG (0.0-30.0)
[2018-04-16 20:04] LABS: HEMOGLOBIN A1c 7.1 %
[2018-04-17 10:11] LABS: TOTAL 25(OH) VITAMIN D 25.8 NG/ML (30.0-100.0)
== END ==
LOC: M SFHCADAM 15:34
PROVIDERS: ATTEND Physician Assistant Medical
DX: E03.9 Hypothyroidism, unspecified (principal); E78.1 Pure hyperglyceridemia; E66.01 Morbid (severe) obesity due to excess calories; E55.9 Vitamin D deficiency, unspecified; I87.2 Venous insufficiency (chronic) (peripheral); R73.01 Impaired fasting glucose

== ENCOUNTER → 2018-07-09 | Outpatient (REF) | payer MEDICAID ==
[~2018-07-09] MED LIST changes: -ASPI1TAB PO; +ASPI81TA26 PO
[2018-07-09 13:27] LABS: HEMOGLOBIN A1c 6.2 %
[2018-07-09 13:37] LABS: ALBUMIN 3.9 GM/DL (3.2-5.2); ALT/SGPT 76 U/L (12-78); BILIRUBIN,TOTAL 0.3 MG/DL (0.2-1.0); BLOOD UREA NITROGEN 14 MG/DL (7-18); CALCIUM LEVEL 9.2 MG/DL (8.5-10.1); CARBON DIOXIDE LEVEL 26 MEQ/L (21-32); CHLORIDE LEVEL 105 MEQ/L (98-107); CREATININE FOR GFR 0.62 MG/DL (0.55-1.30); FREE T4 1.59 NG/DL (0.76-1.46); GLOMERULAR FILTRATION RATE > 60.0 (>58); GLUCOSE, FASTING 110 MG/DL (70-100); POTASSIUM SERUM 4.1 MEQ/L (3.5-5.1); SODIUM LEVEL 138 MEQ/L (136-145); THYROID STIMULATING HORMONE 0.066 uIU/ML (0.358-3.740); TOTAL PROTEIN 6.6 GM/DL (6.4-8.2)
[2018-07-10 09:48] LABS: HEPATITIS B SURFACE ANTIGEN NEGATIVE (NEGATIVE)
[2018-07-10 10:15] LABS: HEPATITIS B CORE ANTIBODY IGM NEGATIVE (NEGATIVE)
[2018-07-10 10:16] LABS: HEPATITIS A ANTIBODY IGM NEGATIVE (NEGATIVE)
== END ==
LOC: M SFHCADAM 11:08
PROVIDERS: ATTEND Physician Assistant Medical
DX: E11.9 Type 2 diabetes mellitus without complications (principal); E03.9 Hypothyroidism, unspecified; R74.8 Abnormal levels of other serum enzymes

== ENCOUNTER → 2018-08-26 | Outpatient (REF) | payer MEDICAID ==
[2018-08-26 12:36] LABS: FREE T4 1.6 NG/DL (0.76-1.46); THYROID STIMULATING HORMONE 0.172 uIU/ML (0.358-3.740)
== END ==
LOC: M SFHCADAM 09:03
PROVIDERS: ATTEND Physician Assistant Medical
DX: E03.9 Hypothyroidism, unspecified (principal)

== ENCOUNTER → 2018-09-01 | Outpatient (CLI) | payer MEDICAID ==
[~2018-09-01] MED LIST changes: -SIMV20TA2; -SIMV20TA2 PO; +SIMV20TA22; +SIMV20TA22 PO; -TRAZ-163; -TRAZ-163 PO; +TRAZ-257; +TRAZ-257 PO
--- NOTE | 2018-09-01 09:31 | REP ---
Clinical: Elevated liver function tests. Technique: Real time thao scale ultrasound examination using curved array transducer. Findings: The liver is enlarged and demonstrates increased echotexture with poor through transmission suggesting fatty infiltration. No obvious focal hepatic lesion identified. The pancreas is incompletely evaluated due to interposed bowel gas, but visualized portions appear normal. Evidence for prior cholecystectomy. Biliary ductal dilatation is appreciated and the common bile duct measures 4.5 mm diameter. The right kidney is normal in reniform shape and echogenicity without hydronephrosis and measures 12.8 x 5.6 x 5.4 cm. Ascites in the visualized right upper quadrant. Impression: 1. Hepatomegaly and hepatic steatosis. 2. Evidence of prior cholecystectomy. Electronically Signed by Remigio Dover MD 09/01/2018 09:23 A
== END ==
LOC: M RAD 08:31
PROVIDERS: ATTEND Physician Assistant Medical
DX: R74.8 Abnormal levels of other serum enzymes (principal); R16.0 Hepatomegaly, not elsewhere classified; K76.0 Fatty (change of) liver, not elsewhere classified

== ENCOUNTER → 2018-10-19 | Outpatient (REF) | payer MEDICAID ==
[~2018-10-19] MED LIST changes: +SIMV20TA2; +SIMV20TA2 PO; -SIMV20TA22; -SIMV20TA22 PO; +TRAZ-163; +TRAZ-163 PO; -TRAZ-257; -TRAZ-257 PO
== END ==
LOC: M SFHCADAM 08:35
PROVIDERS: ATTEND Physician Assistant Medical
DX: E11.9 Type 2 diabetes mellitus without complications (principal); E03.9 Hypothyroidism, unspecified; E55.9 Vitamin D deficiency, unspecified

== ENCOUNTER → 2019-03-08 | Outpatient (REF) | payer MEDICAID ==
[~2019-03-08] MED LIST changes: -SIMV20TA2; -SIMV20TA2 PO; +SIMV20TA22; +SIMV20TA22 PO
[2019-03-08 13:47] LABS: HEMOGLOBIN A1c 5.8 %
[2019-03-08 14:05] LABS: ALBUMIN 3.5 GM/DL (3.2-5.2); ALT/SGPT 50 U/L (12-78); BILIRUBIN,TOTAL 0.3 MG/DL (0.2-1.0); BLOOD UREA NITROGEN 8 MG/DL (7-18); CALCIUM LEVEL 9.2 MG/DL (8.5-10.1); CARBON DIOXIDE LEVEL 22 MEQ/L (21-32); CHLORIDE LEVEL 108 MEQ/L (98-107); CHOLESTEROL LEVEL 112 MG/DL (<200); CHOLESTEROL RISK RATIO 3.393 (<5); CREATININE FOR GFR 0.71 MG/DL (0.55-1.30); GLOMERULAR FILTRATION RATE > 60.0 (>58); GLUCOSE, FASTING 104 MG/DL (70-100); HDL CHOLESTEROL 33 MG/DL (>40); LDL CHOLESTEROL 45 MG/DL (<100); NON-HDL-C 79 MG/DL; POTASSIUM SERUM 4.4 MEQ/L (3.5-5.1); SODIUM LEVEL 140 MEQ/L (136-145); TOTAL PROTEIN 6.5 GM/DL (6.4-8.2); TRIGLYCERIDES LEVEL 169 MG/DL (<150)
== END ==
LOC: M SFHCADAM 08:13
PROVIDERS: ATTEND Physician Assistant Medical
DX: E03.9 Hypothyroidism, unspecified (principal); E11.9 Type 2 diabetes mellitus without complications

== ENCOUNTER 2019-04-03 10:16 | Emergency (ER) | payer MEDICAID ==
[~2019-04-03] VITALS: Ht 170.2 cm; Wt 114.7 kg
[~2019-04-03 10:16] MED LIST changes: -TRAZ-163; -TRAZ-163 PO; +TRAZ-257; +TRAZ-257 PO
[2019-04-03] MEDS ORDERED: LEVO100T5 PO (10:28)
[2019-04-03] MEDS ORDERED: METF10004 (10:29)
--- NOTE | 2019-04-03 11:09 | REP ---
PA and lateral chest: Comparison is 07/13/2016. The lung richardson are clear. The cardiac size is normal. The maurice, mediastinum, and skeletal structures are unremarkable except for marked thoracic scoliosis convex right, unchanged. . Impression: Negative PA and lateral chest. There is no interval change. Electronically Signed by Jonathan Rodríguez MD 04/03/2019 11:00 A
[2019-04-03] MEDS ORDERED: IBUPROFEN 100 MG/5 ML SUSP UDC DYE FREE PO ONE (11:15)
[2019-04-03 11:27] LABS: INFLUENZA A AMPLIFICATION POSITIVE (NEGATIVE); INFLUENZA B AMPLIFICATION NEGATIVE (NEGATIVE)
[2019-04-03 11:57] VITALS: BP 130/78
== END 2019-04-03 12:02 | disposition home or self-care (01) ==
LOC: M ED 10:16
DX: J09.X2 Influenza due to identified novel influenza A virus with other respiratory manifestations (principal); F84.0 Autistic disorder; Z88.0 Allergy status to penicillin; Z88.5 Allergy status to narcotic agent; Z88.6 Allergy status to analgesic agent; Z79.84 Long term (current) use of oral hypoglycemic drugs; Z79.899 Other long term (current) drug therapy

== ENCOUNTER → 2019-05-07 | Outpatient (CLI) | payer MEDICAID ==
[~2019-05-07] MED LIST changes: +LEVO100T5 PO; +METF10004
--- NOTE | 2019-05-07 14:39 | REPMRS ---
Patient History The patient states she has not had a clinical breast exam in over a year. Patient is postmenopausal, has history of endometrial cancer at age 19, and is nulliparous. Family history of unknown cancer in mother. Patient is autistic Digital Woman Screen Mammo: May 07, 2019 - Exam #: [id number] Bilateral CC and MLO view(s) were taken. Technologist: Mary Bangura, Technologist No prior studies available for comparison. FINDINGS: There are scattered fibroglandular densities. There is no evidence of dominant mass, architectural distortion, or grouped microcalcification typical of malignancy. Assessment: BI-RADS/ACR category 1 mammogram. Negative Mammogram. Recommendation Routine screening mammogram of both breasts in 1 year (for women over age 40). This patient's Lifetime Breast Cancer RIsk is estimated at 12.0 %. This mammogram was interpreted with the aid of an FDA-approved computer-aided dectection system. Electronically Signed By: Fadi Oropeza MD 05/07/19 [id number]
== END ==
LOC: M WHC 10:51
PROVIDERS: ATTEND Physician Assistant Medical
DX: Z12.39 Encounter for other screening for malignant neoplasm of breast (principal); Z78.0 Asymptomatic menopausal state

== ENCOUNTER → 2019-10-07 | Outpatient (REF) | payer MEDICAID ==
[~2019-10-07] MED LIST changes: -ASPI81TA85 PO; +ASPI81TA86 PO
[2019-11-22 10:03] LABS: FREE T4 1.27 NG/DL (0.76-1.46); THYROID STIMULATING HORMONE 2.05 uIU/ML (0.358-3.740)
== END ==
LOC: M SFHCADAM 14:53
PROVIDERS: ATTEND Physician Assistant Medical
DX: E03.9 Hypothyroidism, unspecified (principal)

== ENCOUNTER → 2020-03-21 | Outpatient (REF) | payer MEDICAID ==
[2020-03-21 18:19] LABS: BASO % 0.5 % (0.0-1.0); EOS # 0.1 10^3/uL (0.0-0.5); EOS % 1.4 % (0.0-3.0); HEMATOCRIT 40.9 % (36.0-47.0); HEMOGLOBIN 13.4 g/dl (12.0-15.5); LYMPH # 1.6 10^3/uL (1.5-5.0); LYMPH % 38.4 % (24.0-44.0); MEAN CORPUSCULAR HEMOGLOBIN 28.9 pg (27.0-33.0); MEAN CORPUSCULAR HGB CONC 32.8 g/dl (32.0-36.5); MEAN CORPUSCULAR VOLUME 88.3 fl (80.0-96.0); MONO # 0.3 10^3/uL (0.0-0.8); MONO % 6.6 % (0.0-5.0); NEUTROPHILS # 2.3 10^3/uL (1.5-8.5); NEUTROPHILS % 52.6 % (36.0-66.0); PLATELET COUNT, AUTOMATED 228 10^3/uL (150-450); RED BLOOD COUNT 4.63 10^6/uL (4.00-5.40); WHITE BLOOD COUNT 4.3 10^3/uL (4.0-10.0)
[2020-03-21 18:43] LABS: HEMOGLOBIN A1c 6.5 %
[2020-03-21 18:48] LABS: ALBUMIN 3.9 GM/DL (3.2-5.2); ALT/SGPT 85 U/L (12-78); BILIRUBIN,TOTAL 0.3 MG/DL (0.2-1.0); BLOOD UREA NITROGEN 11 MG/DL (7-18); CALCIUM LEVEL 9.8 MG/DL (8.5-10.1); CARBON DIOXIDE LEVEL 24 MEQ/L (21-32); CHLORIDE LEVEL 108 MEQ/L (98-107); CHOLESTEROL LEVEL 120 MG/DL (<200); CHOLESTEROL RISK RATIO 3.157 (<5); CREATININE FOR GFR 0.75 MG/DL (0.55-1.30); FREE T4 1.18 NG/DL (0.76-1.46); GLOMERULAR FILTRATION RATE > 60.0 (>58); GLUCOSE, FASTING 149 MG/DL (70-100); HDL CHOLESTEROL 38 MG/DL (>40); LDL CHOLESTEROL 46 MG/DL (<100); NON-HDL-C 82 MG/DL; POTASSIUM SERUM 4.1 MEQ/L (3.5-5.1); SODIUM LEVEL 140 MEQ/L (136-145); TOTAL PROTEIN 7.1 GM/DL (6.4-8.2); TRIGLYCERIDES LEVEL 182 MG/DL (<150)
[2020-03-21 18:51] LABS: CREATININE, URINE 15.3 MG/DL; MALB URINE SIEMENS < 5.0 MG/L; MAU/CREAT RATIO 32.6 MCG/MG (0.0-30.0); TOTAL 25(OH) VITAMIN D 37.9 NG/ML (30.0-100.0)
== END ==
LOC: M SFHCADAM 11:20
PROVIDERS: ATTEND Physician Assistant Medical
DX: E11.9 Type 2 diabetes mellitus without complications (principal); F84.0 Autistic disorder; E03.9 Hypothyroidism, unspecified; E78.1 Pure hyperglyceridemia; E66.01 Morbid (severe) obesity due to excess calories; E55.9 Vitamin D deficiency, unspecified; K76.0 Fatty (change of) liver, not elsewhere classified

== ENCOUNTER → 2020-06-22 | Outpatient (CLI) | payer MEDICAID ==
--- NOTE | 2020-06-22 13:32 | REPMRS ---
Patient History The patient states she has not had a clinical breast exam in over a year. Family history of unknown cancer in mother. Patient states no breast complaints today. Patient has signed MRS History Sheet. Digital Woman Screen Mammo: June 22, 2020 - Exam #: [id number] Bilateral CC and MLO view(s) were taken. Technologist: Sherrie Allen Technologist Prior study comparison: May 07, 2019, bilateral digital woman screen mammo performed at [facility] [place]. Screening. Digital screening (2D) mammography was performed bilaterally in the CC and MLO projections. Additionally, breast tomosynthesis (3D mammography) was performed bilaterally in the CC and MLO projections. Todays exam was compared to the prior exams(s).There are no prior DBT images for comparison. By history, the patient has no complaints of a palpable breast abnormality or other significant breast complaints. The breasts are unchanged in size and shape. There are no cherry-soft tissue densities or spiculated masses. There is no internal architectural distortion. Benign appearing calcifications are seen. There are no suspicious cherry-calcific clusters. Skin thickening or nipple retraction is not present. IMPRESSION: BI-RADS Category 2- Benign Findings(s). There is no evidence of malignant alteration of the breasts. Followup examination recommended in one year. The Volpara volumetric breast density category is B, there are scattered areas of fibroglandular density. This mammogram was read with the assistance of [employer],an FDA approved computer aided detection system for mammography. The lifetime Tyrer-Cuzick score is 11.9% Negative x-ray reports should not delay surgical consultation if a dominant or clinically suspicious mass is present. Not all breast cancers can be identified by mammography. Therefore, we recommend that you continue to perform regular breast self-examination and physical examination and then promptly contact your physician of any concerns or changes. Adenosis and dense breasts may obscure an underlying neoplasm. Assessment: BI-RADS/ACR category 2 mammogram. Benign Findings. Recommendation Routine screening mammogram of both breasts in 1 year. Electronically Signed By: Troy Cullen DO 06/22/20 [id number]
== END ==
LOC: M WHC 12:25
PROVIDERS: ATTEND Physician Assistant Medical
DX: Z12.31 Encounter for screening mammogram for malignant neoplasm of breast (principal)

== ENCOUNTER 2020-09-14 15:57 | Inpatient (IN) | payer MEDICAID ==
[~2020-09-14] VITALS: Ht 170.2 cm; Wt 137.2 kg
[2020-09-14] MEDS ORDERED: NS 1,000 ML IV ONE (20:35)
[2020-09-14 20:41] LABS: BASO % 0.3 % (0.0-1.0); HEMATOCRIT 42.7 % (36.0-47.0); HEMOGLOBIN 14.2 g/dl (12.0-15.5); LYMPH # 0.4 10^3/uL (1.5-5.0); LYMPH % 6.2 % (24.0-44.0); MEAN CORPUSCULAR HEMOGLOBIN 28.9 pg (27.0-33.0); MEAN CORPUSCULAR HGB CONC 33.3 g/dl (32.0-36.5); MONO # 0.2 10^3/uL (0.0-0.8); MONO % 3.2 % (2.0-8.0); NEUTROPHILS # 5.9 10^3/uL (1.5-8.5); NEUTROPHILS % 89.2 % (36.0-66.0); PLATELET COUNT, AUTOMATED 188 10^3/uL (150-450); RED BLOOD COUNT 4.91 10^6/uL (4.00-5.40); WHITE BLOOD COUNT 6.6 10^3/uL (4.0-10.0)
[2020-09-14] MEDS ORDERED: CLINDAMYCIN 900 MG in IV 1 EA IV ONE (21:00)
[2020-09-14 21:01] LABS: ERYTHROCYTE SEDIMENTATION RATE 7 mm/hr (0-20)
[2020-09-14] MEDS ORDERED: ACETAMINOPHEN 500 MG TAB PO ONE (21:05)
[2020-09-14] MEDS ORDERED: LIDOCAINE 2% 5ML JELLY UROJET TOP ONE (21:05)
[2020-09-14 21:06] LABS: ALBUMIN 4.1 GM/DL (3.2-5.2); ALT/SGPT 164 U/L (12-78); BILIRUBIN,DIRECT 0.2 MG/DL (0.0-0.2); BILIRUBIN,TOTAL 0.6 MG/DL (0.2-1.0); BLOOD UREA NITROGEN 14 MG/DL (7-18); CALCIUM LEVEL 9.7 MG/DL (8.5-10.1); CARBON DIOXIDE LEVEL 26 MEQ/L (21-32); CHLORIDE LEVEL 98 MEQ/L (98-107); CK-MB VALUE MASS < 1.0 NG/ML (<3.6); CPK CREATINE PHOSPHOKINASE 290 U/L (26-192); CREATININE FOR GFR 1.08 MG/DL (0.55-1.30); GLOMERULAR FILTRATION RATE 59.2 (>58); GLUCOSE, FASTING 227 MG/DL (70-100); LIPASE 186 U/L (73-393); MB/CK RELATIVE INDEX 0.34 (< OR =4); POTASSIUM SERUM 3.9 MEQ/L (3.5-5.1); SODIUM LEVEL 133 MEQ/L (136-145); TOTAL PROTEIN 7.7 GM/DL (6.4-8.2); TROPONIN I 0.02 NG/ML (< 0.10)
[2020-09-14] MEDS ORDERED: NS IV ONE (21:20)
[2020-09-14] MEDS ORDERED: LORA5SOL9 PO (21:42)
[2020-09-14] MEDS ORDERED: SYNT100T PO (21:42)
[2020-09-14] MEDS ORDERED: FISH1000 PO (21:42)
[2020-09-14] MEDS ORDERED: META28.32 PO (21:42)
[2020-09-14] MEDS ORDERED: ASPI1CHW3 PO (21:42)
[2020-09-14] MEDS ORDERED: SYNT88TA2 PO (21:42)
[2020-09-14] MEDS ORDERED: METF-877 PO (21:42)
[2020-09-14] MEDS ORDERED: ERGO500029 PO (21:42)
[2020-09-14] MEDS ORDERED: SIMV40TA20 PO (21:42)
[2020-09-14] MEDS ORDERED: MOM 30ML SUSPENSION UDC PO PRN (22:35)
[2020-09-14] MEDS ORDERED: MAALOX 30 ML SUSP *UDC PO PRN (22:35)
--- NOTE | 2020-09-14 22:36 | HPEPDOC ---
[facility] Medical History & Physical Date of Admission Sep 14, 2020 Date of Service: Sep 14, 2020 Primary Care Physician: KLARISSA TRACEY PA-C Attending Physician: SANTO CÁRDENAS MD History and Physical TIME OF SERVICE: 10:05 PM CHIEF COMPLAINT: Fever HISTORY OF PRESENT ILLNESS: Ms. Mcdowell is a 40-year-old female with autism she is not very verbal therefore the majority of history was obtained from RAIZA Roman and the patient's father. Early on during the day the patient had been in her normal state. While out eating lunch with her aide the aide noticed that the patient was not eating which is very abnormal for the patient because she "likes to eat"; the patient vomited 3 times and was noted to be walking abnormally. When she arrived home her father checked her temperature, which was 103, and noticed that the patient was not behaving like her typical self and that her right lower extremity was swollen. The patient's father added that the patient had a similar episode in the past and had to be admitted in the hospital for several days; he was not sure if the final diagnosis was cellulitis. According to the patient's father she has toenail fungus and thick toenails; he has looked into various remedies to treat this but is not sure what to use to treat it. REVIEW OF SYSTEMS: Unobtainable because the patient has autism PAST MEDICAL/ SURGICAL HISTORY: Low functioning autism (nonverbal), NIDDM, hypothyroidism, vitamin D deficiency, dyslipidemia, history of right lower extremity cellulitis in 2017, fatty liver hysterectomy, left oophorectomy, cholecystectomy SOCIAL HISTORY: The patient lives with her father has a home health aide/she does not smoke drink or use recreational drugs FAMILY HISTORY: Both her mother and father have diabetes, her father also has hypertension and dyslipidemia ALLERGIES: Please see below. HOME MEDICATIONS: Please see below. PHYSICAL EXAMINATION: Vital Signs Date Time Temp Pulse Resp B/P (MAP) Pulse Ox O2 Delivery O2 Flow Rate FiO2 09/14/20 16:04 99.2 120 22 153/71 (98) 97 Room Air GENERAL APPEARANCE: well-nourished and developed /slightly agitated and anxious HEENT: EOMI / MMM&P CARDIOVASCULAR: RRR LUNGS: CTAB on RA/she is not coughing ABDOMEN: contour convex MUSCULOSKELETAL: NCAT / ROMIx 4 INTEGUMENT: The skin on the right lower leg has rubor dolor and calor NEUROLOGICAL: Unable to assess because the patient is agitated PSYCHIATRIC: Alert/appears anxious/not following my instructions or answer my questions LABORATORY DATA: IMAGING: Right lower extremity ultrasound is pending MICROBIOLOGY: Respiratory panel is pending /blood cultures are pending ASSESSMENT: Ms. Mcdowell is a 40-year-old with a history of Autism, NIDDM, hypothyroidism, vitamin D deficiency, dyslipidemia who was admitted for sepsis possibly secondary to RLE cellulitis. PLAN 1. Sepsis likely secondary to right lower extremity cellulitis She has the following SIRS criteria: Temp >100.4 / HR >90 / RR > 20 She has lactic acidosis She has the following risk factors for cellulitis: Elevated BMI & toenail fungus Her ALT-70 Score to diagnose LE Cellulitis is only 4 points (primarily because the white count is not elevated) which is equivocal; because she has several risk factors for cellulitis including her BMI and toenail fungus we will treat her for cellulitis, but if her symptoms do not improve after few days of antibiotics the daytime team may consider placing a dermatology and/or ID consult. Plan: Because her NEW2S Score is 8 points which puts her in the high risk category we will admit her to PCU/ telemetry /follow-up repeat lactic acid and exam in 3H /continue with clindamycin which covers which covers MRSA, MSSA and beta hemolytic strep / switch to lactate ringers /f/u blood cx / Acetaminophen PRN for fever / target MAP at of least 65 to 70 / f/u Is and Os with target UOP of at least 0.5 ml/kg/H / f/u FSBS w target serum glucose 140-180 while acutely ill /follow-up lower extremity duplex to rule out DVT/ elevate leg / for the toenail fungus the daytime team may consider consulting podiatry on an inpatient basis or referring the patient to podiatry in an outpatient basis 2 Elevated LFTs 2/2 fatty liver Plan: Follow-up with PCP for screening and surveillance including hepatitis panel and liver ultrasound 3 Autism Plan: The father or other relatives plan to be at the bedside during the majority of the hospital stay 4 NIDDM Plan: diabetic diet / f/u accuchecks / hypoglycemia protocol / sliding scale insulin / hold oral anti-glycemic / f/u A1C (target A1C is <7 to 6.5% ) 5 Hypothyroidism Plan: Levothyroxine 6 Class III obesity Complicates care DVT PROPHYLAXIS: Lovenox (Lizabeth score is 5 points therefore pharmacological prophylaxis is indicated) DISPOSITION: home after at least 2 midnight's stay Home Medications Scheduled Aspirin (Aspirin) 81 Mg Tab.chew, 81 MG PO DAILY Ergocalciferol (Vitamin D2) (Vitamin D2) 50,000 Units Cap, 50,000 UNITS PO QWEEK TUESDAYS Fenofibrate,Micronized (Fenofibrate) 200 Mg Cap, 200 MG PO DAILY OPEN CAPSULE AND PUT IN METAMUCIL IN THE MORNING Levothyroxine Sodium (Synthroid) 88 Mcg Tablet, 88 MCG PO DAILY TAKES WITH 100MCG FOR 188MCG TOTAL Levothyroxine Sodium (Synthroid) 100 Mcg Tablet, 100 MCG PO DAILY TAKES WITH 88MCG FOR 188MCG TOTAL Loratadine (Children's Loratadine) 5 Mg/5 Ml Solution, 10 MG PO QHS Metformin HCl (Metformin HCl) 1,000 Mg Tablet, 1,000 MG PO BID Hamilton-3 Fatty Acids/Fish Oil (Fish Oil 1,000 mg Capsule) 1 Each Capsule, 1,000 MG PO BID Psyllium Husk (with Sugar) (Metamucil Powder) 575 Gm Powder, 1 PKT PO BID Simvastatin (Simvastatin) 40 Mg Tablet, 40 MG PO QHS Trazodone HCl (Trazodone HCl) 100 Mg Tab, 100 MG PO QHS Allergies Coded Allergies: Sulfa (Sulfonamide Antibiotics) (Verified Allergy, Mild, rash, 09/14/20) amoxicillin (Verified Allergy, Mild, rash, 09/14/20) oxycodone (Verified Allergy, Mild, rash, 09/14/20) A-FIB/CHADSVASC A-FIB History Current/History of A-Fib/PAF?: No Current PO Anticoag Therapy: No SANTO CÁRDENAS MD Sep 14, 2020 22:36
[2020-09-14] MEDS ORDERED: GLUCAGON INJ 1MG VIAL SC PRN (22:40)
[2020-09-14] MEDS ORDERED: DEXTROSE 50% 50 ML SYRINGE IV PRN (22:40)
[2020-09-14] MEDS ORDERED: GLUCOSE 4GM CHEW TABLET PO PRN (22:40)
[2020-09-14 22:44] LABS: RSV AMPLIFICATION NEGATIVE (NEGATIVE)
[2020-09-15] MEDS: traZODone 100 MG TAB PO SCH ×2 (00:06→21:17)
[2020-09-15] MEDS: HumaLOG INSULIN (NovoLOG) PER UNIT SC SCH ×4 (00:20→21:00)
[2020-09-15] MEDS: LR 1,000 ML IV SCH ×2 (03:09→13:28)
[2020-09-15] MEDS: ACETAMINOPHEN TAB 650MG DOSE (2X325MG) PO PRN ×3 (03:11→22:51)
[2020-09-15] MEDS ORDERED: IBUPROFEN 400MG TAB PO ONE (04:20)
[2020-09-15 04:22] LABS: HEMATOCRIT 36.6 % (36.0-47.0); MEAN CORPUSCULAR HEMOGLOBIN 29.1 pg (27.0-33.0); MEAN CORPUSCULAR HGB CONC 33.3 g/dl (32.0-36.5); MEAN CORPUSCULAR VOLUME 87.4 fl (80.0-96.0); PLATELET COUNT, AUTOMATED 124 10^3/uL (150-450); RED BLOOD COUNT 4.19 10^6/uL (4.00-5.40); WHITE BLOOD COUNT 4.1 10^3/uL (4.0-10.0)
[2020-09-15 04:23] LABS: HEMOGLOBIN 12.2 g/dl (12.0-15.5)
[2020-09-15 04:40] LABS: BLOOD UREA NITROGEN 11 MG/DL (7-18); CALCIUM LEVEL 8.4 MG/DL (8.5-10.1); CARBON DIOXIDE LEVEL 20 MEQ/L (21-32); CHLORIDE LEVEL 107 MEQ/L (98-107); GLOMERULAR FILTRATION RATE > 60.0 (>58); GLUCOSE, FASTING 151 MG/DL (70-100); POTASSIUM SERUM 3.9 MEQ/L (3.5-5.1); SODIUM LEVEL 139 MEQ/L (136-145)
[2020-09-15 04:51] LABS: HEMOGLOBIN A1c 8.2 %
--- NOTE | 2020-09-15 05:40 | ECGEPIP ---
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
[2020-09-15] MEDS: CLINDAMYCIN 600 MG in IV 1 EA IV SCH ×2 (06:14→16:47)
[2020-09-15] MEDS: LEVOTHYROXINE 100MCG TABLET (0.1MG) PO SCH (06:14)
[2020-09-15] MEDS: LEVOTHYROXINE 88MCG TABLET (0.088 MG) PO SCH (06:14)
--- NOTE | 2020-09-15 08:08 | REP ---
INDICATION: r lower leg swelling, ro dvt. Repeat dictation. Preliminary report is provided at the time of the exam by tata TRAN. COMPARISON: Comparison study May 31, 2014.. TECHNIQUE: Right {lower extremity duplex venous scanning is performed from the groin to the ankle level. FINDINGS: The deep veins are anechoic and fully compressible from the groin to the popliteal fossa in the right lower extremity. Color flow imaging is homogeneous. Spectral Doppler interrogation demonstrates intact respiratory variation in flow and normal manual augmentation of flow. There is no evidence of deep vein thrombosis above the knee. There is no evidence of DVT in the visualized calf veins. Visualization of the calf veins was quite limited due to patient motion. Doppler interrogation of the contralateral common femoral vein shows normal symmetric respiratory phasicity. IMPRESSION: No evidence of DVT in the right lower extremity femoropopliteal veins. No DVT in the visible portions of the calf veins. <Electronically signed by Fadi Oropeza > 09/15/20 0890
[2020-09-15] MEDS: ASPIRIN 81 MG CHEW TABLET PO SCH (10:04)
[2020-09-15] MEDS: ENOXAPARIN 40MG/0.4ML SYRINGE (J1650 PER 10MG) SC SCH (10:05)
[2020-09-15] MEDS: FENOFIBRATE 145 MG TAB (TRICOR) PO SCH (10:05)
[2020-09-15 13:15] VITALS: BP 131/66
--- NOTE | 2020-09-15 13:32 | IPNPDOC ---
Subjective Date Seen The patient was seen on 09/15/20. Subjective Chief Complaint/HPI Ms. Mcdowell is a 40-year-old female with nonverbal autism. Patient seen at bedside in no acute distress; resting comfortably -easily arousable to stimuli, but not interactive. History obtained from father at bedside. He reports patient just recently fell asleep she had been awake most of the night. He describes patient at baseline until yesterday around lunchtime when she had poor p.o. -was found to be febrile temperature 103F had multiple emesis episodes and found to have right lower extremity swelling/redness. Patient's father repo rts patient had similar type presentation in 2017 when she had a cellulitis of the right leg. He reports that her right lower extremity now does not look anywhere near as bad as the 2017 infection. He is unsure of any cuts or scrapes, she does have a healing blister of the right heel and some toenail fungus but the redness is from mid foot and does not appear to be located distally. Patient does react to some tenderness of the right lower extremity when touched and patient's father reports that she seemed to walk "favoring it" yesterday, but today had gotten up to bathroom without any limp or change of gait. Patient's father did report that patient is usually well controlled with her di abetes but past the day blood sugars have been slightly more elevated.. A.m. blood glucose 189. Patient arrived with elevated lactic and it is trending down 3.2 last lactic from 4.5. General: Reports: ROS Unobtainable (Patient nonverbal) Objective Physical Examination General Exam: Positive: Alert, Cooperative, No Acute Distress Eye Exam: Positive: PERRLA, Conjunctiva & lids normal, EOMI; Negative: Sclera icteric ENT Exam: Positive: Atraumatic, Mucous membr. moist/pink, Pharynx Normal Neck Exam: Positive: Supple; Negative: JVD, thyromegaly Chest Exam: Positive: Clear to auscultation, Normal air movement Heart Exam: Positive: Rate Normal, Regular Rhythm, Normal S1, Normal S2; Negative: Murmurs, Rubs Telemetry: Positive: No significant arrhythmia Abdomen Exam: Positive: Normal bowel sounds, Soft; Negative: Tenderness, Hepatospenomegaly Extremity Exam: Positive: Edema, Tenderness, Swelling (Right lower extremity mild tenderness warmth erythema right leg about double the size of left lower extremity) Skin Exam: Positive: Nl turgor and temperature; Negative: Rash, Breakdown Neuro Exam: Positive: Other (At baseline) Psych Exam: Positive: Mood NL RAD Interpretation STUDY: Vascular ultrasound Rad Actions: Report Reviewed RAD Interpretation: Normal (No DVT right lower extremity) Assessment /Plan Plan/VTE VTE Prophylaxis Ordered?: Yes Plan IVF: Continue Diet: Continue Current Activity: Bedrest Medications: Other Med: (Continue antibiotics) Diagnostics: Repeat Labs in AM Anticipated Discharge: Home 1. Sepsis 2/2 RLE cellulitis Patient has the following SIRS criteria: Temp >100.4 / HR >90 / RR > 20 and lactic acidosis upon admission Monitor patient, monitor for signs symptoms of worsening infection. Trend lactic. Encourage p.o. Intake. Continue with clindamycin which covers which covers MRSA, MSSA and beta hemolytic strep. Follow-up on cultures. If patient without clinical improvement may escalate antibiotic coverage in a.m. Nursing staff to outline area of erythema. 2 Elevated LFTs 2/2 hepatic steatosis Follow-up with PCP for screening and surveillance including hepatitis panel and liver ultrasound 3 Autism Monitor patient and spend time for direction/orientation and de-escalation techniques as needed. Encourage patient family centered care model as the father or other relatives plan to be at the bedside during the majority of the hospital stay 4 NIDDM Plan: diabetic diet / f/u accuchecks / hypoglycemia protocol / sliding scale insulin / hold oral anti-glycemic 5 Hypothyroidism Plan: Levothyroxine 6 Class III obesity Complicates care, encourage weight loss with PCP monitoring DVT PROPHYLAXIS: Lovenox (Lizabeth score is 5 points therefore pharmacological prophylaxis is indicated) DISPOSITION: home after at least 2 midnight's stay Disposition Home with family and caretaking aide VS, I&O, 24H, Fishbone Vital Signs/I&O Vital Signs Date Time Temp Pulse Resp B/P (MAP) Pulse Ox O2 Delivery O2 Flow Rate FiO2 09/15/20 12:05 134/88 (103) 09/15/20 12:01 77 95 09/15/20 10:15 99.6 20 Room Air I&O- Last 24 Hours up to 6 AM 09/15/20 06:00 Intake Total 3500 ml Output Total 200 ml Balance 3300 ml Laboratory Data 24H LABS Laboratory Tests 2 09/14/20 20:24: Immature Granulocyte % (Auto) 1.1, Neutrophils (%) (Auto) 89.2H, Lymphocytes (%) (Auto) 6.2L, Monocytes (%) (Auto) 3.2, Eosinophils (%) (Auto) 0.0, Basophils (%) (Auto) 0.3, Neutrophils # (Auto) 5.9, Lymphocytes # (Auto) 0.4L, Monocytes # (Auto) 0.2, Eosinophils # (Auto) 0.0, Basophils # (Auto) 0.0, Nucleated Red Blood Cells % (auto) 0.0, Erythrocyte Sedimentation Rate 7, Anion Gap 9, Glomerular Filtration Rate 59.2, Lactic Acid Level 4.1*H, Calcium Level 9.7, Total Bilirubin 0.6, Direct Bilirubin 0.2, Aspartate Amino Transf (AST/SGOT) 99H, Alanine Aminotransferase (ALT/SGPT) 164H, Alkaline Phosphatase 77, Total Creatine Kinase 290H, Creatine Kinase MB < 1.0, Creatine Kinase MB Relative Index 0.34, Troponin I 0.02, C-Reactive Protein, Quantitative 7.70H, Total Prot ein 7.7, Albumin 4.1, Albumin/Globulin Ratio 1.1L, Lipase 186 09/14/20 21:56: Coronavirus (COVID-19)(PCR) NEGATIVE, Influenza Type A (RT-PCR) NEGATIVE, Influenza Type B (RT-PCR) NEGATIVE, Respiratory Syncytial Virus (PCR) NEGATIVE 09/14/20 22:58: Urine Color YELLOW, Urine Appearance HAZY, Urine pH 5.0, Urine Specific [place] 1.024, Urine Protein 1+H, Urine Glucose (UA) 1+H, Urine Ketones NEGATIVE, Urine Blood 1+H, Urine Nitrite NEGATIVE, Urine Bilirubin NEGATIVE, Urine Urobilinogen 0.2, Urine Leukocyte Esterase NEGATIVE, Urine WBC (Auto) 2, Urine RBC (Auto) 10H, Urine Hyaline Casts (Auto) 0, Urine Bacteria (Auto) NEGATIVE, Urine Squamous Epithelial Cells 2, Urine Calcium Oxalate Cryst (Auto) SMALL, Urine Mucus (Auto) SMALL, Urine Sperm (Auto) 09/14/20 23:02: Lactic Acid Level 4.5*H 09/15/20 00:14: Bedside Glucose (Misc Panel) 242H 09/15/20 04:09: Methicillin-Resist S.aureus DNA PCR NOT DETECTED 09/15/20 04:10: Nucleated Red Blood Cells % (auto) 0.0, Anion Gap 12, Glomerular Filtration Rate > 60.0, Estimated Mean Plasma Glucose 189H, Hemoglobin A1c 8.2, Lactic Acid Followup at 4 Hours 3.2*H, Calcium Level 8.4L 09/15/20 06:06: Bedside Glucose (Misc Panel) 196H CBC/BMP Laboratory Tests 09/14/20 20:24 09/15/20 04:10 Microbiology Microbiology 09/14/20 Blood Culture - Preliminary, Resulted 09/14/20 Blood Culture - Preliminary, Resulted Attending Note Attending Note I, Jose Guadarrama, have independently examined this patient and performed my own physical exam, as well as reviewed the documentation and edited where necessary. - Blood cultures 2 of 2 noted to be positive - Will repeat blood cultures - ESR / CRP - ECHO YUMIKO VALDEZ NP Sep 15, 2020 13:32 JOSE GUADARRAMA MD Sep 15, 2020 13:39
[2020-09-15] MEDS ORDERED: LIDOCAINE 1% MDV 20ML VIAL As Ordered ONE (15:45)
[2020-09-15] MEDS: NS 1,000 ML IV SCH (16:47)
[2020-09-15 16:49] VITALS: BP 139/62
[2020-09-15] MEDS ORDERED: ACETAMINOPHEN 500 MG TAB PO ONE (17:05)
[2020-09-15] MEDS ORDERED: VANCOMYCIN HCL 1,000 MG, VIAL MATE ADAPTER 1 EACH in NS 250 ML IV SCH (17:05)
[2020-09-15] MEDS ORDERED: SODIUM CHLORIDE 0.9% INJ 10 ML SYR IV PRN (17:20)
--- NOTE | 2020-09-15 17:21 | REP ---
INDICATION: Poor Access. COMPARISON: None. TECHNIQUE: The procedure was performed under the direct supervision of Dr. Oropeza. The risks and benefits of the procedure were explained to the patient and informed consent was obtained. The right basilic vein was localized using ultrasound guidance. The skin was prepped and draped in a sterile fashion. 1 mL of 1% lidocaine was used as a local anesthetic. Using ultrasound guidance the basilic vein was cannulated and a 0.018 guidewire was inserted and advanced to the SVC using fluoroscopic guidance, and last image hold technology. The needle was removed and a 5 Slovenian dilator and peel-away sheath was inserted over the guide wire. A 5 [place]ian dual lumen catheter was cut to length of 43 cm. The dilator was removed and the catheter was inserted over the guide wire with the tip ending in the SVC. The peel-away sheath was removed and the catheter was flushed with heparinized saline as per Hospital protocol. The catheter was affixed to the skin and a sterile dressing was applied. Estimated blood loss: Less than 1 cc The patient tolerated the procedure well and there were no immediate complications. 0.3 minutes of fluoro time was utilized for this procedure. FINDINGS: None IMPRESSION: PICC line insertion right basilic vein with the tip ending in the SVC. <Electronically signed by Ben Reis > 09/15/20 0160 <Electronically signed by Fadi Oropeza > 09/15/20 [id number]
[2020-09-15] MEDS: SODIUM CHLORIDE 0.9% INJ 10 ML SYR IV SCH (18:00)
[2020-09-15] MEDS: MEROPENEM INJ 1 GM in IV 1 EA IV SCH (18:16)
[2020-09-15 20:00] VITALS: BP 170/60
[2020-09-15] MEDS ORDERED: VANCOMYCIN HCL 1,000 MG, VIAL MATE ADAPTER 1 EACH in NS 250 ML IV ONE ×2 (20:00→21:00)
[2020-09-16] VITALS: BP 135/63
[2020-09-16] MEDS: NS 1,000 ML IV SCH ×2 (00:53→09:32)
[2020-09-16] MEDS: MEROPENEM INJ 1 GM in IV 1 EA IV SCH ×2 (01:59→09:33)
[2020-09-16] MEDS: ACETAMINOPHEN TAB 650MG DOSE (2X325MG) PO PRN ×2 (03:46→22:25)
[2020-09-16 04:00] VITALS: BP 124/67
[2020-09-16] MEDS ORDERED: VANCOMYCIN HCL 750 MG, VIAL MATE ADAPTER 1 EACH in NS 250 ML IV SCH ×2 (04:00→05:00)
[2020-09-16] MEDS: LEVOTHYROXINE 100MCG TABLET (0.1MG) PO SCH (06:07)
[2020-09-16] MEDS: SODIUM CHLORIDE 0.9% INJ 10 ML SYR IV SCH ×2 (06:07→18:29)
[2020-09-16] MEDS: LEVOTHYROXINE 88MCG TABLET (0.088 MG) PO SCH (06:07)
[2020-09-16 06:24] LABS: HEMATOCRIT 33.9 % (36.0-47.0); HEMOGLOBIN 11.1 g/dl (12.0-15.5); MEAN CORPUSCULAR HEMOGLOBIN 29.1 pg (27.0-33.0); MEAN CORPUSCULAR HGB CONC 32.7 g/dl (32.0-36.5); PLATELET COUNT, AUTOMATED 107 10^3/uL (150-450); RED BLOOD COUNT 3.81 10^6/uL (4.00-5.40); WHITE BLOOD COUNT 2.7 10^3/uL (4.0-10.0)
[2020-09-16 06:52] LABS: ALBUMIN 2.6 GM/DL (3.2-5.2); ALT/SGPT 185 U/L (12-78); BILIRUBIN,TOTAL 0.8 MG/DL (0.2-1.0); BLOOD UREA NITROGEN 8 MG/DL (7-18); CARBON DIOXIDE LEVEL 21 MEQ/L (21-32); CHLORIDE LEVEL 110 MEQ/L (98-107); GLOMERULAR FILTRATION RATE > 60.0 (>58); GLUCOSE, FASTING 160 MG/DL (70-100); MAGNESIUM LEVEL 1.9 MG/DL (1.8-2.4); POTASSIUM SERUM 3.9 MEQ/L (3.5-5.1); SODIUM LEVEL 137 MEQ/L (136-145)
[2020-09-16 07:00] LABS: ATYPICAL LYMPH 2 % (0-5); LYMPHOCYTES 13 % (16-44); METAMYELOCYTES 1 % (0-0); MONOCYTES 2 % (0-5); NEUTROPHILS 57 % (28-66)
[2020-09-16 07:03] LABS: OVALOCYTES 1+; PLATELET ESTIMATE DECREASED (NORMAL); POLYCHROMASIA 1+
[2020-09-16 08:00] VITALS: BP 137/79
--- NOTE | 2020-09-16 08:54 | REP ---
INDICATION: Possible foreign body. COMPARISON: X-ray 07/12/2016, CT 07/15/2016 TECHNIQUE: Two views FINDINGS: Study again shows a 5 mm very thin linear metallic density in the volar subcutaneous tissues and unchanged from the 2017 studies. I see no new metallic foreign body. There are degenerative changes at 1st MTP joint 1st IP joint and some in the PIP and D IP joints of other toes although do not see fracture avulsion or erosion are no destructive changes. Some minor midfoot degenerative changes and spurring are seen. There is a plantar and Achilles insertional spur as before although larger. Minor soft tissue swelling distal forefoot dorsally this is much less dramatic bend in the 2017 study. No subcutaneous emphysema IMPRESSION: 1. Stable thin 5 mm linear metallic foreign body in the plantar soft tissues subcutaneous right foot at the level of the proximal tarsal row. Stable no new metallic foreign body 2. Some mild soft tissue swelling over the dorsal aspect of the distal forefoot, much less than on the previous study. 3. Degenerative changes as described and heel spurs which are slightly larger. No fracture or destructive lesion identified. <Electronically signed by Joseph Rice > 09/16/20 [id number]
[2020-09-16] MEDS ORDERED: OMEPRAZOLE 20 MG CAP PO SCH (09:00)
[2020-09-16] MEDS: FENOFIBRATE 145 MG TAB (TRICOR) PO SCH (09:32)
[2020-09-16] MEDS: HumaLOG INSULIN (NovoLOG) PER UNIT SC SCH ×4 (09:32→21:00)
[2020-09-16] MEDS: ASPIRIN 81 MG CHEW TABLET PO SCH (09:32)
[2020-09-16] MEDS: ENOXAPARIN 40MG/0.4ML SYRINGE (J1650 PER 10MG) SC SCH (09:33)
--- NOTE | 2020-09-16 10:11 | IPNPDOC ---
Text Note Date of Service The patient was seen on 09/16/20. NOTE Subjective: Patient is a 40 year old female with a PMHx of Autism (non-verbal), NIDDM2, DLP, Hypothyroidism, Vitamin D deficiency, Fatty liver, Hx of RLE cellulitis (2017), who presented to the emergency room after she had a fever and was noted to have redness of her right lower extremity. Patient was admitted to the hospitalist service for further evaluation and treatment of suspected cellulitis. Patient was seen and examined at the bedside. Patient is unable to answer any specific questions. However, appears to be more comfortable. Objective: Vitals (See below) General: Lying in bed, appears comfortable, awake / alert, but non-verbal HEENT: NC, AT CVS: +S1S2 Lungs: Fair air entry b/l, -w/r/r Abdomen: Soft, nondistended, nontender, obese Extremities: No significant edema, right lower extremity with area of erythema essentially unchanged from yesterday Imaging: Vascular US 09/14: No evidence of DVT in the right lower extremity femoropopliteal veins. No DVT in the visible portions of the calf veins. Foot XR 09/16: 1. Stable thin 5 mm linear metallic foreign body in the plantar soft tissues subcutaneous right foot at the level of the proximal tarsal row. Stable no new metallic foreign body 2. Some mild soft tissue swelling over the dorsal aspect of the distal forefoot, much less than on the previous study. 3. Degenerative changes as described and heel spurs which are slightly larger. No fracture or destructive lesion identified. Assessment and plan: Sepsis - likely 2/2 step group G bacteremia - likely 2/2 cellulitis - Patient clinically appears to have had improvement - Has been experiencing fevers throughout the night - c/w Cooling blankets, Tylenol, Ibuprofen Step group G bacteremia - likely 2/2 cellulitis - Blood cultures 09/14: Streptococcus group G - Blood cultures 09/15: Pending - Leukopenia noted this morning - CRP trending down - c/w Meropenem and Vancomycin (Day #2) Cellulitis at RLE - Area of erythema, warmth and tenderness appears to have remained stable - c/w antibiotics; see above Elevated LFTs 2/2 hepatic steatosis - Patient has a history of fatty liver disease - Will have outpatient follow-up with primary care provider for surveillance including hepatitis panel and liver ultrasound Autism - Patient is nonverbal at baseline - 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
[2020-09-16 12:00] VITALS: BP 138/76
[2020-09-16] MEDS: OMEPRAZOLE SUSPENSION 20MG 10ML ORAL SYRINGE GT SCH (13:29)
[2020-09-16] MEDS: cefTRIAXone SOD 2 GM in D5W MINI-BAG PLUS 50 ML IV SCH (15:24)
[2020-09-16 16:00] VITALS: BP 141/70
[2020-09-16 20:00] VITALS: BP 136/80
[2020-09-16] MEDS: traZODone 100 MG TAB PO SCH (21:07)
[2020-09-17] VITALS: BP 119/67
[2020-09-17] MEDS: NS 1,000 ML IV SCH (01:42)
[2020-09-17 04:00] VITALS: BP 144/62
[2020-09-17] MEDS: LEVOTHYROXINE 100MCG TABLET (0.1MG) PO SCH (05:14)
[2020-09-17] MEDS: LEVOTHYROXINE 88MCG TABLET (0.088 MG) PO SCH (05:14)
[2020-09-17] MEDS: ACETAMINOPHEN TAB 650MG DOSE (2X325MG) PO PRN ×3 (05:14→22:06)
[2020-09-17] MEDS: SODIUM CHLORIDE 0.9% INJ 10 ML SYR IV SCH ×2 (05:16→18:00)
[2020-09-17 05:29] LABS: BASO % 0.4 % (0.0-1.0); HEMATOCRIT 33.3 % (36.0-47.0); HEMOGLOBIN 10.9 g/dl (12.0-15.5); LYMPH # 0.7 10^3/uL (1.5-5.0); MEAN CORPUSCULAR HEMOGLOBIN 28.3 pg (27.0-33.0); MEAN CORPUSCULAR HGB CONC 32.7 g/dl (32.0-36.5); MEAN CORPUSCULAR VOLUME 86.5 fl (80.0-96.0); MONO # 0.1 10^3/uL (0.0-0.8); MONO % 4.4 % (2.0-8.0); NEUTROPHILS # 1.9 10^3/uL (1.5-8.5); NEUTROPHILS % 67.5 % (36.0-66.0); PLATELET COUNT, AUTOMATED 109 10^3/uL (150-450); RED BLOOD COUNT 3.85 10^6/uL (4.00-5.40); WHITE BLOOD COUNT 2.7 10^3/uL (4.0-10.0)
[2020-09-17 06:03] LABS: ALBUMIN 2.8 GM/DL (3.2-5.2); ALT/SGPT 174 U/L (12-78); BILIRUBIN,TOTAL 0.4 MG/DL (0.2-1.0); BLOOD UREA NITROGEN 7 MG/DL (7-18); CALCIUM LEVEL 8.5 MG/DL (8.5-10.1); CARBON DIOXIDE LEVEL 23 MEQ/L (21-32); CHLORIDE LEVEL 108 MEQ/L (98-107); CREATININE FOR GFR 0.59 MG/DL (0.55-1.30); GLOMERULAR FILTRATION RATE > 60.0 (>58); GLUCOSE, FASTING 216 MG/DL (70-100); MAGNESIUM LEVEL 1.9 MG/DL (1.8-2.4); POTASSIUM SERUM 4.1 MEQ/L (3.5-5.1); SODIUM LEVEL 136 MEQ/L (136-145); TOTAL PROTEIN 6.5 GM/DL (6.4-8.2)
[2020-09-17 08:00] VITALS: BP 142/82
--- NOTE | 2020-09-17 09:09 | IPNPDOC ---
Text Note Date of Service The patient was seen on 09/17/20. NOTE Subjective: Patient is a 40 year old female with a PMHx of Autism (non-verbal), NIDDM2, DLP, Hypothyroidism, Vitamin D deficiency, Fatty liver, Hx of RLE cellulitis (2017), who presented to the emergency room after she had a fever and was noted to have redness of her right lower extremity. Patient was admitted to the hospitalist service for further evaluation and treatment of suspected cellulitis. Patient was seen and examined at the bedside. Patient is laying on her side sleeping upon my arrival, remains comfortable yesterday was reported that she had eaten her breakfast, lunch and dinner and was functioning essentially at her baseline. Overnight she has continued to experience fevers. Objective: Vitals (See below) General: Patient is laying in bed, appears comfortable, drowsy but awakes HEENT: Normocephalic, atraumatic CVS: +S1S2 Lungs: Fair air entry b/l, auscultation is without any wheezing, crackles or rhonchi Abdomen: Abdomen remains soft, obese, there does not appear to be any distention or tenderness Extremities: Right lower extremity with improvement of erythema and warmth Imaging: Vascular US 09/14: No evidence of DVT in the right lower extremity femoropopliteal veins. No DVT in the visible portions of the calf veins. Foot XR 09/16: 1. Stable thin 5 mm linear metallic foreign body in the plantar soft tissues subcutaneous right foot at the level of the proximal tarsal row. Stable no new metallic foreign body 2. Some mild soft tissue swelling over the dorsal aspect of the distal forefoot, much less than on the previous study. 3. Degenerative changes as described and heel spurs which are slightly larger. No fracture or destructive lesion identified. Assessment and plan: Sepsis - likely 2/2 step group G bacteremia - likely 2/2 RLE cellulitis - Continues to have clinical improvement - Has still been experiencing fevers - c/w Cooling blankets, Tylenol, Ibuprofen Step group G bacteremia - likely 2/2 RLE cellulitis - Blood cultures 09/14: Streptococcus group G - Blood cultures 09/15: No growth at 24 hours - Leukopenia persists - CRP improving - c/w Ceftriaxone (Day #2); s/p Meropenem and Vancomycin; s/p Clindamycin (Antibiotic day #3) Cellulitis at RLE - Improvement of cellulitis noted progressed from demarcation lines - c/w antibiotics; see above Elevated LFTs 2/2 hepatic steatosis - Patient has a history of fatty liver disease - LFTs trending down - Will have outpatient follow-up with primary care provider for surveillance including hepatitis panel and liver ultrasound Autism - Patient is nonverbal at baseline - 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 NIDDM2 - c/w ISS Hypothyroidism - c/w Levothyroxine Obesity - BMI of 47.6 - Complicating medical care GI prophylaxis - c/w Omeprazole (re: Lovenox / NSAIDs) DVT prophylaxis - c/w Lovenox Disposition: - Pending clinical improvement / resolution of fevers VS,Fishbone, I+O VS, Fishbone, I+O Laboratory Tests 09/17/20 05:17 Vital Signs Date Time Temp Pulse Resp B/P (MAP) Pulse Ox O2 Delivery O2 Flow Rate FiO2 09/17/20 08:00 100.9 76 20 142/82 (102) 95 Room Air I&O- Last 24 Hours up to 6 AM 09/17/20 06:00 Intake Total 1640 ml Output Total 2750 ml Balance -1110 ml IZABELLA GUADARRAMA MD Sep 17, 2020 09:09
[2020-09-17] MEDS: FENOFIBRATE 145 MG TAB (TRICOR) PO SCH (09:15)
[2020-09-17] MEDS: ASPIRIN 81 MG CHEW TABLET PO SCH (09:15)
[2020-09-17] MEDS: ENOXAPARIN 40MG/0.4ML SYRINGE (J1650 PER 10MG) SC SCH (09:16)
[2020-09-17] MEDS: HumaLOG INSULIN (NovoLOG) PER UNIT SC SCH ×4 (09:17→21:43)
[2020-09-17] MEDS: OMEPRAZOLE SUSPENSION 20MG 10ML ORAL SYRINGE GT SCH (09:17)
[2020-09-17 12:00] VITALS: BP 144/87
[2020-09-17] MEDS: cefTRIAXone SOD 2 GM in D5W MINI-BAG PLUS 50 ML IV SCH (15:34)
[2020-09-17 16:00] VITALS: BP 147/65
[2020-09-17 20:00] VITALS: BP 142/67
[2020-09-17] MEDS: traZODone 100 MG TAB PO SCH (21:21)
[2020-09-18] VITALS: BP 138/69
[2020-09-18 04:00] VITALS: BP 133/78
[2020-09-18 05:57] LABS: HEMATOCRIT 32.2 % (36.0-47.0); HEMOGLOBIN 10.6 g/dl (12.0-15.5); MEAN CORPUSCULAR HEMOGLOBIN 28.6 pg (27.0-33.0); MEAN CORPUSCULAR HGB CONC 32.9 g/dl (32.0-36.5); PLATELET COUNT, AUTOMATED 129 10^3/uL (150-450); WHITE BLOOD COUNT 3.1 10^3/uL (4.0-10.0)
[2020-09-18] MEDS: SODIUM CHLORIDE 0.9% INJ 10 ML SYR IV SCH ×2 (06:05→18:00)
[2020-09-18] MEDS: LEVOTHYROXINE 100MCG TABLET (0.1MG) PO SCH (06:05)
[2020-09-18] MEDS: LEVOTHYROXINE 88MCG TABLET (0.088 MG) PO SCH (06:05)
[2020-09-18 06:28] LABS: BASOPHILS 2 % (0-1); EOSINOPHILS 2 % (0-3); LYMPHOCYTES 38 % (16-44); METAMYELOCYTES 4 % (0-0); MONOCYTES 5 % (0-5); MYELOCYTES 1 % (0-0); NEUTROPHILS 43 % (28-66); PLATELET ESTIMATE DECREASED (NORMAL)
[2020-09-18 06:29] LABS: POLYCHROMASIA 1+
[2020-09-18 06:32] LABS: ALBUMIN 2.5 GM/DL (3.2-5.2); ALT/SGPT 227 U/L (12-78); BILIRUBIN,TOTAL 0.3 MG/DL (0.2-1.0); BLOOD UREA NITROGEN 8 MG/DL (7-18); CALCIUM LEVEL 8.8 MG/DL (8.5-10.1); CARBON DIOXIDE LEVEL 26 MEQ/L (21-32); CHLORIDE LEVEL 107 MEQ/L (98-107); CREATININE FOR GFR 0.49 MG/DL (0.55-1.30); GLOMERULAR FILTRATION RATE > 60.0 (>58); GLUCOSE, FASTING 228 MG/DL (70-100); MAGNESIUM LEVEL 2.1 MG/DL (1.8-2.4); SODIUM LEVEL 137 MEQ/L (136-145); TOTAL PROTEIN 6.4 GM/DL (6.4-8.2)
[2020-09-18 08:00] VITALS: BP 150/73
--- NOTE | 2020-09-18 08:21 | REP ---
INDICATION: Transaminitis. COMPARISON: 09/01/2018 ultrasound TECHNIQUE: Standard right upper quadrant sonographic techniques utilized FINDINGS: Exam is technically challenging due to body habitus considerations, extensive bowel gas in the patient's inability to assume full decubitus position. The liver is homogeneously hyperechoic, difficult to penetrate and without gross focal lesion or biliary dilatation is enlarged vertical diameter of 19.4 cm midclavicular line. No gross ascites. The gallbladder is surgically absent. I cannot discern a common duct due to the factors as stated above. Pancreas is non visualized in this examination. Right kidney is seen in the limited fashion at 13.4 x 5.7 by 6.9 cm. No gross abnormality. IMPRESSION: 1. Diffuse fatty infiltration of the liver and hepatomegaly similar to previous study. Exam technically suboptimal due to body habitus considerations, bowel gas shadowing as stated above. No gross mass or biliary dilatation, no visible ascites. 2. Status post cholecystectomy. Common duct is not able to be visualized. Pancreas is obscured completely. 3. The right kidney shows no gross abnormality, limited evaluation. <Electronically signed by Joseph Rice > 09/18/20 [id number]
[2020-09-18 10:00] LABS: HEPATITIS B SURFACE ANTIGEN NEGATIVE (NEGATIVE)
[2020-09-18 10:27] LABS: HEPATITIS B CORE ANTIBODY IGM NEGATIVE (NEGATIVE)
[2020-09-18] MEDS: ASPIRIN 81 MG CHEW TABLET PO SCH (10:28)
[2020-09-18 10:29] LABS: HEPATITIS A ANTIBODY IGM NEGATIVE (NEGATIVE)
[2020-09-18] MEDS: HumaLOG INSULIN (NovoLOG) PER UNIT SC SCH ×4 (10:29→21:49)
[2020-09-18] MEDS: OMEPRAZOLE SUSPENSION 20MG 10ML ORAL SYRINGE GT SCH (10:29)
[2020-09-18] MEDS: ENOXAPARIN 40MG/0.4ML SYRINGE (J1650 PER 10MG) SC SCH (10:30)
--- NOTE | 2020-09-18 11:26 | IPNPDOC ---
Text Note Date of Service The patient was seen on 09/18/20. NOTE Subjective: Patient is a 40 year old female with a PMHx of Autism (non-verbal), NIDDM2, DLP, Hypothyroidism, Vitamin D deficiency, Fatty liver, Hx of RLE cellulitis (2017), who presented to the emergency room after she had a fever and was noted to have redness of her right lower extremity. Patient was admitted to the hospitalist service for further evaluation and treatment of suspected cellulitis. Patient was seen and examined at the bedside. Currently appears to be functioning at baseline nonverbal but does not appear to be in any significant pain. Objective: Vitals (See below) General: Patient is lying in bed, appears comfortable, awake, alert HEENT: AT and NC CVS: +S1S2 Lungs: There appears to be fair air entry bilaterally without evidence of wheezing, crackles or rhonchi Abdomen: ND, NT, Soft, Obese Extremities: Right lower extremity with erythema below demarcation lines, however erythema seems to have worsened. No drainage or significant tenderness Imaging: Vascular US 09/14: No evidence of DVT in the right lower extremity femoropopliteal veins. No DVT in the visible portions of the calf veins. Foot XR 09/16: 1. Stable thin 5 mm linear metallic foreign body in the plantar soft tissues subcutaneous right foot at the level of the proximal tarsal row. Stable no new metallic foreign body 2. Some mild soft tissue swelling over the dorsal aspect of the distal forefoot, much less than on the previous study. 3. Degenerative changes as described and heel spurs which are slightly larger. No fracture or destructive lesion identified. Assessment and plan: Sepsis - likely 2/2 step group G bacteremia - likely 2/2 RLE cellulitis - Currently appears to be functioning at baseline - Fevers have continued to recur, however, have improved - c/w Cooling blankets, Ibuprofen; Will DC Tylenol (See below) Step group G bacteremia - likely 2/2 RLE cellulitis - Blood cultures 09/14: Streptococcus group G - Blood cultures 09/15: No growth at 48 hours - Leukopenia persists - CRP continues to improve - c/w Ceftriaxone (Day #3); s/p Meropenem and Vancomycin; s/p Clindamycin (Antibiotic day #3) - Will consult ID Cellulitis at RLE - Area of erythema appears to have worsened, however, still below the demarcation lines - c/w antibiotics; see above Elevated LFTs 2/2 hepatic steatosis - Patient has a history of fatty liver disease - Increase noted this morning - Will check Liver US / Hepatitis profile - Will stop Tylenol - Will continue to trend Autism - Patient is nonverbal at baseline - 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 NIDDM2 - c/w ISS Hypothyroidism - c/w Levothyroxine Obesity - BMI of 47.6 - Complicating medical care GI prophylaxis - c/w Omeprazole (re: Lovenox / NSAIDs) DVT prophylaxis - c/w Lovenox Disposition: - Pending clinical improvement / resolution of fevers VS,Fishbone, I+O VS, Fishbone, I+O Laboratory Tests 09/18/20 05:35 Vital Signs Date Time Temp Pulse Resp B/P (MAP) Pulse Ox O2 Delivery O2 Flow Rate FiO2 09/18/20 08:00 100.2 77 20 150/73 (98) 99 Room Air I&O- Last 24 Hours up to 6 AM 09/18/20 05:59 Intake Total 1365 ml Output Total 1840 ml Balance -475 ml IZABELLA GUADARRAMA MD Sep 18, 2020 11:26
[2020-09-18 12:00] VITALS: BP 151/78
[2020-09-18] MEDS: cefTRIAXone SOD 2 GM in D5W MINI-BAG PLUS 50 ML IV SCH (14:51)
[2020-09-18 16:00] VITALS: BP 134/80
[2020-09-18 20:00] VITALS: BP 135/76
[2020-09-18] MEDS: traZODone 100 MG TAB PO SCH (21:48)
[2020-09-18] MEDS: CEFDINIR 300 MG CAP (OMNICEF) PO SCH (21:48)
--- NOTE | 2020-09-18 22:22 | CR ---
INFECTIOUS DISEASE CONSULTATION DATE: 09/18/2020 REQUESTING PHYSICIAN: Dr. Jose Inman CONSULTING PHYSICIAN: Dr. Stephen Lombardo REASON FOR CONSULTATION: Evaluation of persistent fever in a patient with right lower extremity Group G cellulitis with bacteremia. HISTORY OF PRESENT ILLNESS: Karen is a pleasant 40-year-old female with autism who is not verbal except for calling her name. History was obtained from her father who was at the bedside. The patient was admitted on September 14 with fever up to 103 and vomited about three times before admission. The patient did not eat her usual lunch. She was not behaving well and they had noticed that her right lower extremity was swollen and erythematous. The patient had a similar episode in 2017 with group G strep bacteremia and cellulitis. She was admitted to the hospital, was started on IV Meropenem. Her temperature was between 104 and 105 and she remained febrile up until this morning. She has onychomycosis. PAST MEDICAL HISTORY: The patient's past medical history is significant for: 1. Low functioning, autism, but the patient is independent in walking. 2. Non insulin dependent diabetes. 3. Hypothyroidism. 4. Vitamin D deficiency. 5. Dyslipidemia. 6. History of right lower extremity cellulitis in 2017 with group G strep. 7. Fatty liver. PAST SURGICAL HISTORY: The patient's past surgical history is significant for: 1. Hysterectomy. 2. Left oophorectomy. 3. Cholecystectomy. SOCIAL HISTORY: The patient lives with her father, has a home health aide who takes her out. She walks independently. She does not smoke or drink and does not go in the [place]. No tick bites. She has a cat that is mostly outdoors. No cat scratches. FAMILY HISTORY: Mother and father have diabetes. Father also has hypertension, dyslipidemia. ALLERGIES: 1. Sulfa. 2. Amoxicillin. 3. Oxycodone. MEDICATIONS: 1. Ceftriaxone 2 grams IV q. 24 hours - currently day number 2. Omeprazole 40 mg daily. 3. Ibuprofen 80 mg p.o. q. hours. 4. Insulin sliding scale. 5. Aspirin 81 mg p.o. daily. 6. Lovenox 240 mg subcutaneously daily. 7. Levothyroxine 188 mcg daily. 8. Trazodone 100 mg p.o. q. h.s. LABORATORY DATA: White count on admission was 6.6, currently 3.1, hemoglobin 10.6, hematocrit 32.2, platelet count 129, 43% neutrophils, 5% bands, 38% lymphocytes, 5% monocytes. Sodium 137, potassium 4, chloride 107, bicarbonate 26, BUN 8, creatinine 0.49, glucose 228, calcium 8.8, magnesium 2.1, bilirubin 0.3, AST 160, ALT 227. These are new findings compared to 2019 where her liver tests were normal. CRP 30.8, down to 11.8. Blood cultures two sets on 09/14 were positive for Group G strep, sensitive to Tetracycline, sensitive to Amoxicillin and Ceftriaxone. Hepatitis A, B and C were negative. MRSA screen was negative. ASO titer was 50. IMAGING DATA: Echocardiogram has been done but there is no report yet. EKG 09/14/[address]-T wave abnormalities. X-rays of her ultrasound show diffuse fatty liver with hepatomegaly. No gross mass or biliary dilatation. No ascites, status post cholecystectomy. Foot x-ray showed a 5 mm linear metallic foreign body in the plantar soft tissue subcutaneous right foot which is stable, unchanged and is not the area erythema. Heel spurs noted are larger. No fractures. PHYSICAL EXAMINATION: GENERAL APPEARANCE: She is a pleasant autistic woman who is not able to verbalize, in no acute distress. VITAL SIGNS: Temperature is 99.9, pulse 75, respirations 18, blood pressure 134/80, 02 sat 96% on room air. HEART: Normal S1, S2, tachycardic.LATASHA 2/6 murmur heard at the right upper sternal border. LUNGS: Clear. No wheezes, rales or rhonchi. ABDOMEN: Obese, soft, nontender. BACK: No CVA tenderness or lumbosacral tenderness. EXTREMITIES: Right lower extremity with erythema from below the knee to the ankle. There is a small blister on the Achilles tendon, purplish in color. There are no open lesions otherwise. +2 dorsalis pedis pulses. No involvement of the foot. Left foot with no lesions. She has thick onychomycosis on most toenails. IMPRESSION: This is a 40-year-old female who is admitted with fever, chills and right lower extremity erysipelas. The area is very well demarcated. She had a temperature of 105 and currently is down to 99.9. The patient had group G strep bacteremia which has resolved. She has a mild anemia and mild pancytopenia which will need to be followed up as an outpatient. PLAN: 1. Discontinue Varghese catheter - The patient is ambulatory to go to the bathroom. 2. Discontinue IV Ceftriaxone she will be switched to Cefdinir 300 mg p.o. twice daily. 3. Elevate leg to decrease the edema and erythema. 4. The patient could be discharged home with 7 days of oral Cefdinir if remains afebrile. 5. Repeat CBC and liver profile as an outpatient probably related to abnormalities related to infection as her LFTs were normal before this hospitalization. KASANDRA
--- NOTE | 2020-09-18 23:39 | ECHO ---
ECHOCARDIOGRAM DATE OF PROCEDURE: 09/18/2020 Age: 40 Gender: Female Height: 170 cm Weight: 131 kg REFERRING PHYSICIAN: Dr. Jose Inmna INDICATION: Sepsis 2D MEASUREMENTS: Ventricular septum 1.14 cm Posterior wall 1.14 cm Left ventricle diastole 5.0 cm left atrium 4.2 cm Aortic root 3.6 cm Left atrial volume index 29 Doppler Measurements: No aortic regurgitation No aortic stenosis LVOT velocity 133 cm/s LVOT VTI 25.1 cm No mitral regurgitation No mitral stenosis Mitral E velocity 90.7 cm/s Mitral A velocity 86.5 cm/s No tricuspid regurgitation No pulmonic regurgitation MITRAL ANNULAR TISSUE DOPPLER: E prime lateral 12.0 cm/s E prime septal 9.3 cm/s. DESCRIPTION: Rhythm was sinus. This was a moderately technically difficult echocardiogram. No pericardial effusion. CONCLUSIONS: 1. No vegetations. 2. Normal left ventricle internal dimensions and wall thickness. Normal regional LV wall motion and wall thickening. Normal LV systolic function. LVEF of 70% by visual estimate. Normal LV diastolic function. 3. Mild left atrial dilatation by left atrial volume index. 4. No pericardial effusion. 5. Technically difficult for visualization of inferior vena cava. Unable to assess central venous pressure.
[2020-09-19] VITALS: BP 131/64
[2020-09-19] MEDS: IBUPROFEN 800 MG TAB PO PRN ×2 (00:04→20:22)
[2020-09-19 04:00] VITALS: BP 116/63
[2020-09-19] MEDS: LEVOTHYROXINE 100MCG TABLET (0.1MG) PO SCH (05:41)
[2020-09-19] MEDS: LEVOTHYROXINE 88MCG TABLET (0.088 MG) PO SCH (05:41)
[2020-09-19] MEDS: SODIUM CHLORIDE 0.9% INJ 10 ML SYR IV SCH ×2 (05:42→17:52)
[2020-09-19 07:41] LABS: HEMATOCRIT 32.8 % (36.0-47.0); HEMOGLOBIN 10.9 g/dl (12.0-15.5); MEAN CORPUSCULAR HGB CONC 33.2 g/dl (32.0-36.5); MEAN CORPUSCULAR VOLUME 87.2 fl (80.0-96.0); PLATELET COUNT, AUTOMATED 153 10^3/uL (150-450); RED BLOOD COUNT 3.76 10^6/uL (4.00-5.40); WHITE BLOOD COUNT 4.5 10^3/uL (4.0-10.0)
[2020-09-19 08:00] VITALS: BP 145/75
[2020-09-19 08:11] LABS: ALBUMIN 2.5 GM/DL (3.2-5.2); ALT/SGPT 213 U/L (12-78); BILIRUBIN,TOTAL 0.3 MG/DL (0.2-1.0); BLOOD UREA NITROGEN 10 MG/DL (7-18); CALCIUM LEVEL 8.6 MG/DL (8.5-10.1); CARBON DIOXIDE LEVEL 26 MEQ/L (21-32); CHLORIDE LEVEL 107 MEQ/L (98-107); CREATININE FOR GFR 0.48 MG/DL (0.55-1.30); GLOMERULAR FILTRATION RATE > 60.0 (>58); GLUCOSE, FASTING 218 MG/DL (70-100); MAGNESIUM LEVEL 2.3 MG/DL (1.8-2.4); POTASSIUM SERUM 4.2 MEQ/L (3.5-5.1); SODIUM LEVEL 139 MEQ/L (136-145); TOTAL PROTEIN 6.1 GM/DL (6.4-8.2)
[2020-09-19 08:17] LABS: ATYPICAL LYMPH 1 % (0-5); EOSINOPHILS 2 % (0-3); LYMPHOCYTES 33 % (16-44); METAMYELOCYTES 4 % (0-0); MONOCYTES 10 % (0-5); MYELOCYTES 1 % (0-0); NEUTROPHILS 45 % (28-66); PLATELET ESTIMATE NORMAL (NORMAL)
[2020-09-19] MEDS: HumaLOG INSULIN (NovoLOG) PER UNIT SC SCH ×4 (08:24→20:22)
[2020-09-19] MEDS: CEFDINIR 300 MG CAP (OMNICEF) PO SCH ×2 (08:24→20:22)
[2020-09-19] MEDS: OMEPRAZOLE SUSPENSION 20MG 10ML ORAL SYRINGE GT SCH (08:24)
[2020-09-19] MEDS: ASPIRIN 81 MG CHEW TABLET PO SCH (08:24)
[2020-09-19] MEDS: ENOXAPARIN 40MG/0.4ML SYRINGE (J1650 PER 10MG) SC SCH (08:25)
[2020-09-19 11:53] VITALS: BP 135/76
--- NOTE | 2020-09-19 14:31 | IPNPDOC ---
Subjective Date Seen The patient was seen on 09/19/20. Subjective Chief Complaint/HPI Dionne is resting in bed. She was febrile last night. Her dad is at the bedside, he is concerned about her cellulitis. Objective Physical Examination General Exam: Positive: Alert, No Acute Distress Eye Exam: Positive: PERRLA, Conjunctiva & lids normal, EOMI; Negative: Sclera icteric ENT Exam: Positive: Atraumatic, Mucous membr. moist/pink, Pharynx Normal Neck Exam: Positive: Supple; Negative: JVD, thyromegaly Chest Exam: Positive: Clear to auscultation, Normal air movement Heart Exam: Positive: Rate Normal, Regular Rhythm, Normal S1, Normal S2; Negative: Murmurs, Rubs Telemetry: Positive: No significant arrhythmia Abdomen Exam: Positive: Normal bowel sounds, Soft; Negative: Tenderness, Hepatospenomegaly Extremity Exam: Positive: Edema, Tenderness, Swelling (Right lower extremity mild tenderness warmth erythema right leg about double the size of left lower extremity) Skin Exam: Positive: Nl turgor and temperature, Rash (see extremity exam); Negative: Breakdown Neuro Exam: Positive: Other (At baseline) Psych Exam: Positive: Mood NL Assessment /Plan Assessment Sepsis - likely 2/2 step group G bacteremia - likely 2/2 RLE cellulitis - overall improved, continues to have fevers Step group G bacteremia - likely 2/2 RLE cellulitis, POA RLE cellulitis, POA - Blood cultures 09/14: Streptococcus group G - Blood cultures 09/15: No growth at 48 hours - Leukopenia persists - CRP continues to improve - on oral abx Elevated LFTs 2/2 hepatic steatosis - Patient has a history of fatty liver disease - liver ULS shows FLD Autism - Patient is nonverbal at baseline - 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 NIDDM2 - c/w ISS Hypothyroidism - c/w Levothyroxine Obesity - BMI of 47.6 - Complicating medical care GI prophylaxis - c/w Omeprazole (re: Lovenox / NSAIDs) DVT prophylaxis - c/w Lovenox Disposition: - Pending resolution of fevers Plan/VTE VTE Prophylaxis Ordered?: Yes Plan IVF: Continue Diet: Continue Current Activity: Bedrest Medications: Other Med: (Continue antibiotics) Diagnostics: Repeat Labs in AM Anticipated Discharge: Home VS, I&O, 24H, Fishbone Vital Signs/I&O Vital Signs Date Time Temp Pulse Resp B/P (MAP) Pulse Ox O2 Delivery O2 Flow Rate FiO2 09/19/20 11:53 99.6 67 20 135/76 (95) 97 Room Air I&O- Last 24 Hours up to 6 AM 09/19/20 06:00 Intake Total 120 ml Output Total 1000 ml Balance -880 ml Laboratory Data 24H LABS Laboratory Tests 2 09/18/20 19:03: Bedside Glucose (Misc Panel) 256H 09/18/20 20:23: Bedside Glucose (Misc Panel) 265H 09/19/20 07:16: Immature Granulocyte % (Auto) , Neutrophils (%) (Auto) , Nucleated Red Blood Cells % (auto) 0.0, Neutrophils 45, Band Neutrophils 4, Lymphocytes (Manual) 33, Monocytes (Manual) 10H, Eosinophils (Manual) 2, Metamyelocytes 4H, Myelocytes 1H, Atypical Lymphocytes 1, Red Blood Cell Morphology NORMAL, Platelet Estimate NORMAL, Anion Gap 6L, Glomerular Filtration Rate > 60.0, Calcium Level 8.6, Magnesium Level 2.3, Total Bilirubin 0.3, Aspartate Amino Transf (AST/SGOT) 101H, Alanine Aminotransferase (ALT/SGPT) 213H, Alkaline Phosphatase 106, C- Reactive Protein, Quantitative 9.10H, Total Protein 6.1L, Albumin 2.5L, [place] min/Globulin Ratio 0.7L 09/19/20 12:05: Bedside Glucose (Misc Panel) 245H CBC/BMP Laboratory Tests 09/19/20 07:16 Microbiology Microbiology 09/15/20 Blood Culture - Preliminary, Resulted No Growth after 72 hours. All specime... 09/15/20 Blood Culture - Preliminary, Resulted No Growth after 72 hours. All specime... 09/14/20 Blood Culture - Final, Complete Streptococcus Group G 09/14/20 Blood Culture - Final, Complete Streptococcus Group G RUMA FLOOD MD Sep 19, 2020 14:26
[2020-09-19 16:00] VITALS: BP 135/76
[2020-09-19 20:00] VITALS: BP 153/72
[2020-09-19] MEDS: traZODone 100 MG TAB PO SCH (20:22)
[2020-09-20] VITALS: BP 114/67
[2020-09-20 04:00] VITALS: BP 165/83
[2020-09-20 05:10] LABS: HEMATOCRIT 33.7 % (36.0-47.0); HEMOGLOBIN 11.1 g/dl (12.0-15.5); MEAN CORPUSCULAR HEMOGLOBIN 28.7 pg (27.0-33.0); MEAN CORPUSCULAR HGB CONC 32.9 g/dl (32.0-36.5); MEAN CORPUSCULAR VOLUME 87.1 fl (80.0-96.0); PLATELET COUNT, AUTOMATED 202 10^3/uL (150-450); RED BLOOD COUNT 3.87 10^6/uL (4.00-5.40); WHITE BLOOD COUNT 5.8 10^3/uL (4.0-10.0)
[2020-09-20] MEDS: LEVOTHYROXINE 88MCG TABLET (0.088 MG) PO SCH (05:40)
[2020-09-20] MEDS: LEVOTHYROXINE 100MCG TABLET (0.1MG) PO SCH (05:40)
[2020-09-20 05:41] LABS: ALBUMIN 2.7 GM/DL (3.2-5.2); ALT/SGPT 185 U/L (12-78); BILIRUBIN,TOTAL 0.3 MG/DL (0.2-1.0); BLOOD UREA NITROGEN 13 MG/DL (7-18); C REACTIVE PROTEIN QUANTITATIV 6.47 MG/DL (0.00-0.30); CALCIUM LEVEL 8.9 MG/DL (8.5-10.1); CARBON DIOXIDE LEVEL 29 MEQ/L (21-32); CHLORIDE LEVEL 106 MEQ/L (98-107); CREATININE FOR GFR 0.53 MG/DL (0.55-1.30); GLOMERULAR FILTRATION RATE > 60.0 (>58); GLUCOSE, FASTING 236 MG/DL (70-100); MAGNESIUM LEVEL 2.1 MG/DL (1.8-2.4); POTASSIUM SERUM 4.2 MEQ/L (3.5-5.1); SODIUM LEVEL 139 MEQ/L (136-145); TOTAL PROTEIN 6.2 GM/DL (6.4-8.2)
[2020-09-20] MEDS: SODIUM CHLORIDE 0.9% INJ 10 ML SYR IV SCH (05:41)
[2020-09-20 07:10] LABS: EOSINOPHILS 2 % (0-3); LYMPHOCYTES 37 % (16-44); METAMYELOCYTES 3 % (0-0); MONOCYTES 5 % (0-5); MYELOCYTES 3 % (0-0); NEUTROPHILS 48 % (28-66); PLATELET ESTIMATE NORMAL (NORMAL)
[2020-09-20 08:00] VITALS: BP 142/82
[2020-09-20] MEDS: HumaLOG INSULIN (NovoLOG) PER UNIT SC SCH ×2 (08:22→12:42)
[2020-09-20] MEDS: CEFDINIR 300 MG CAP (OMNICEF) PO SCH (08:23)
[2020-09-20] MEDS: ASPIRIN 81 MG CHEW TABLET PO SCH (08:23)
[2020-09-20] MEDS: ENOXAPARIN 40MG/0.4ML SYRINGE (J1650 PER 10MG) SC SCH (08:23)
[2020-09-20] MEDS: OMEPRAZOLE SUSPENSION 20MG 10ML ORAL SYRINGE GT SCH (08:23)
[2020-09-20] MEDS ORDERED: CEFD300CAP PO (09:59)
--- NOTE | 2020-09-20 12:00 | IPN ---
INFECTIOUS DISEASE PROGRESS NOTE DATE: 09/19/2020 SUBJECTIVE: Karen seems to be doing well. She is eating well. She has no nausea, vomiting or diarrhea. Her father, who is at the bedside, states she is acting like herself, kind of irritable. She still has a fever, but not as elevated. Patient still has a catheter in place and started asking the nurse to discontinue it yesterday. LABORATORY DATA: White count 4.5, hemoglobin 10.5, hematocrit 32.8, platelets 153, 45% neutrophils, 4% bands, 33% lymphocytes, 10% monocytes. Sodium 139, potassium 4.2, chloride 107, bicarbonate 26, BUN 10, creatinine 0.48, glucose 218, calcium 8.6. AST 101, down from 177, ALT 213. C-reactive protein (CRP) 9.1 down from 27. PHYSICAL EXAMINATION: VITAL SIGNS: Temperature 100.6, pulse 73, respirations 22, blood pressure 152/72, oxygen saturation 97% on room air. HEART: Normal S1, S2. No murmurs, rubs or gallops. LUNGS: Clear. No wheezes, rales or rhonchi. ABDOMEN: Soft, nontender. No hepatosplenomegaly. EXTREMITIES: Right lower extremity redness, well demarcated between the ankle and below the knee. No open lesions. No discharge. Left leg with no erythema. IMPRESSION: 1. Right lower extremity erysipelas with Group G bacteremia, doing better. Currently on Cefdinir. Fever has improved. 2. Abnormal liver function tests. That could be related to sepsis. Hepatitis A, B were negative. Also she could have reactivation of infectious mononucleosis or cytomegalovirus as a cause of her persistent fever and abnormal liver function tests. Will obtain EGD and CMV and PCR. PLAN: The patient could be discharged home tomorrow. There is no need to keep her here for a fever. Discontinue Varghese catheter today. Follow up as an outpatient with results of EGD and CMV and repeat liver profile.
--- NOTE | 2020-09-20 18:05 | DSES ---
DISCHARGE SUMMARY DATE OF ADMISSION: 09/14/2020 DATE OF DISCHARGE: 09/20/2020 DISCHARGE DIAGNOSES: 1. Sepsis secondary to strep group G bacteremia secondary to right lower extremity cellulitis. 2. Right lower extremity cellulitis. 3. Elevated liver function tests secondary to hepatic steatosis. 4. History of autism. 5. History of non insulin dependent diabetes mellitus type 2. 6. History of morbid obesity with BMI in excess of 40. PROCEDURES PERFORMED DURING THIS HOSPITALIZATION: None. CONSULTING PHYSICIAN: Dr. Lombardo DISPOSITION: The patient is discharged home. CONDITION ON DISCHARGE: Stable. DISCHARGE INSTRUCTIONS: 1. The patient was instructed to take Cefdinir 300 mg twice daily for the next 7 days. 2. She is to follow up with her PCP in approximately one week. 3. She is to monitor her right lower extremity cellulitis for any spreading or redness. 4. She is to return to the hospital should she have any recurrent nausea, vomiting or change in mental status or appetite. LAB REVIEW: Relevant labs at the time of discharge are the following: White count 5.8, hemoglobin level 11.1, hematocrit 33.7, platelet count 2,200. On admission the patient had a white count of 6.6 with a hemoglobin of 14.2, with hematocrit of 42.7 with a platelet count of 124,000. She had an elevated CRP marker of 27,000 which has trended down to 6.47. Her liver transaminase levels have also been trending down to 78 and 185. This represents her AST and ALT respectively. Sodium of 139, potassium 4.2, chloride 106, bicarbonate 29, BUN is 13, creatinine is 0.53, glucose is 236. Urinalysis was unremarkable. CMV DNA is still pending at the time of discharge. Luci Machuca virus DNA is pending. Hepatitis panel is negative. MRSA is negative. Anti streptolysin antibody was 50. MICROBIOLOGY: Blood cultures done on 09/14/2020 were positive two out of two for streptococcus Group G. Repeat blood cultures done on 09/14/2020 are negative for the past 5 days. IMAGIN. Studies obtained during the patient's hospital stay were a right lower extremity venous duplex scan. This showed no evidence of DVT. 2. Right basilic vein PICC line placement. 3. Foot x-ray. This showed a stable thin 5 mm linear metallic foreign body in the plantar soft tissue, subcutaneous right foot at the level of the proximal tarsal toe row. Stable, no new metallic foreign body. Some mild soft tissue swelling over the dorsal aspect of the distal forefoot which was much less than on previous study. Degenerative changes are described and heel spurs which are slightly larger. 4. Liver ultrasound demonstrated that the patient had fatty liver disease with diffuse fatty infiltration of the liver and hepatomegaly. Otherwise no abnormalities noted. DISCHARGE MEDICATIONS: 1. Cefdinir 300 mg twice a day for 7 days. 2. Baby Aspirin daily. 3. Ergocalciferol 6 units weekly. 4. Fenofibrate 200 mg daily. 5. Levothyroxine 188 mg p.o. daily. 6. Loratadine 10 mg at bedtime. 7. Metformin 1,000 mg twice daily. 8. Fish Oil 1,000 mg twice daily. 9. Psyllium husk one packet twice daily. 10. Simvastatin 40 mg at bedtime. 11. Trazodone 100 mg at bedtime. HOSPITAL COURSE: Karen is a 40-year-old woman with autism who presents in the hospital after a family and caregivers noted that she was having nausea, vomiting, change in appetite and altered mental status along with fever. She was brought into the Emergency Room where she was noted to have a right lower extremity cellulitis. A vascular ultrasound was obtained which was negative. The patient was not noted to have any leukocytosis. She was empirically started on antibiotics. The following day it was noted that she had some drop in her platelet counts. There was concern for bacteremia. Blood cultures done upon admission showed that she was growing streptococcus G. Repeat blood cultures were ordered. Infectious Disease was consulted. The patient clinically did improve. There was concern about her liver function tests being elevated. A liver ultrasound was obtained which was negative. Clinically the patient continued to improve with improving inflammatory markers which were monitored. Her CBC counts improved with her platelets once again normalizing. The patient has been transitioned to oral antibiotics and is stable for discharge today. DISCHARGE PHYSICAL EXAMINATION: VITAL SIGNS: At the time of discharge the patient's temperature is 97.6, pulse is 68 and regular, respirations 20, blood pressure 142/82, O2 sat 96% on room air. GENERAL APPEARANCE: The patient has autism. She is morbidly obese. She is resting in bed. HEENT: Head is atraumatic. Pupils are symmetric and reactive to light. Oropharynx is clear. No visible thrush. NECK: Supple. LUNGS: Sounds present without rales or rhonchi. HEART: S1, S2, no audible murmurs, rubs or gallops. ABDOMEN: Soft, nontender, nondistended. EXTREMITIES: Without any clubbing, cyanosis, or significant edema. Her edema has receded on her right lower extremity. She still has an area of cellulitis which is not exceeding the demarcated margins. Total of 30 minutes spent completing all discharge paperwork.
[2020-09-22 19:17] LABS: CMV QUANT DNA PCR (PLASMA) Negative (Negative)
== END 2020-09-20 14:47 | disposition home or self-care (01) | DRG 720 ==
LOC: M ED 15:57 → M ED INP 15:58 → ENRESERV 09-15 11:50 → M PCU 09-15 13:03
PROVIDERS: ADMIT Internal Medicine; ATTEND Internal Medicine
PROC: 02HV33Z Insertion of Infusion Device into Superior Vena Cava, Percutaneous Approach (ICD-10-PCS; principal; 2020-09-15 16:30)
DX: A40.8 Other streptococcal sepsis (principal); E87.2 Acidosis; E66.01 Morbid (severe) obesity due to excess calories; Z68.42 Body mass index [BMI] 45.0-49.9, adult; K76.0 Fatty (change of) liver, not elsewhere classified; L03.115 Cellulitis of right lower limb; E11.9 Type 2 diabetes mellitus without complications; F84.0 Autistic disorder; Z79.899 Other long term (current) drug therapy; Z79.82 Long term (current) use of aspirin; E03.9 Hypothyroidism, unspecified; E55.9 Vitamin D deficiency, unspecified; E78.5 Hyperlipidemia, unspecified; Z88.2 Allergy status to sulfonamides; Z88.5 Allergy status to narcotic agent; Z88.0 Allergy status to penicillin

== ENCOUNTER 2020-09-20 21:20 | Emergency (ER) | payer MEDICAID ==
[~2020-09-20] VITALS: Ht 170.2 cm; Wt 130.1 kg
[2020-09-20 21:20] VITALS: BP 173/90
[~2020-09-20 21:20] MED LIST changes: +ASPI1CHW3 PO; +CEFD300CAP PO; +ERGO500029 PO; +LORA5SOL9 PO; +META28.32 PO; +METF-877 PO; +SIMV40TA20 PO; +SYNT100T PO; +SYNT88TA2 PO
== END 2020-09-20 22:00 | disposition left against medical advice (07) ==
LOC: M ED 21:20
DX: Z53.21 Procedure and treatment not carried out due to patient leaving prior to being seen by health care provider (principal)

== ENCOUNTER → 2020-11-10 | Outpatient (REF) | payer MEDICAID ==
[2020-11-10 13:01] LABS: BASO % 0.7 % (0.0-1.0); EOS # 0.1 10^3/uL (0.0-0.5); EOS % 2.2 % (0.0-3.0); HEMATOCRIT 39.3 % (36.0-47.0); HEMOGLOBIN 12.4 g/dl (12.0-15.5); LYMPH # 1.9 10^3/uL (1.5-5.0); LYMPH % 47.2 % (24.0-44.0); MEAN CORPUSCULAR HEMOGLOBIN 28.1 pg (27.0-33.0); MEAN CORPUSCULAR HGB CONC 31.6 g/dl (32.0-36.5); MEAN CORPUSCULAR VOLUME 88.9 fl (80.0-96.0); MONO # 0.3 10^3/uL (0.0-0.8); MONO % 6.3 % (2.0-8.0); NEUTROPHILS # 1.8 10^3/uL (1.5-8.5); NEUTROPHILS % 43.1 % (36.0-66.0); PLATELET COUNT, AUTOMATED 249 10^3/uL (150-450); RED BLOOD COUNT 4.42 10^6/uL (4.00-5.40); WHITE BLOOD COUNT 4.1 10^3/uL (4.0-10.0)
[2020-11-10 13:18] LABS: HEMOGLOBIN A1c 7.8 %
[2020-11-10 13:34] LABS: CHOLESTEROL RISK RATIO 3.933 (<5); THYROID STIMULATING HORMONE 8.47 uIU/ML (0.358-3.740)
[2020-11-10 13:48] LABS: ALBUMIN 3.4 GM/DL (3.2-5.2); ALT/SGPT 72 U/L (12-78); BILIRUBIN,TOTAL 0.2 MG/DL (0.2-1.0); BLOOD UREA NITROGEN 12 MG/DL (7-18); CALCIUM LEVEL 9.4 MG/DL (8.5-10.1); CARBON DIOXIDE LEVEL 23 MEQ/L (21-32); CHLORIDE LEVEL 109 MEQ/L (98-107); CREATININE FOR GFR 0.67 MG/DL (0.55-1.30); GLOMERULAR FILTRATION RATE > 60.0 (>58); GLUCOSE, FASTING 174 MG/DL (70-100); POTASSIUM SERUM 4.3 MEQ/L (3.5-5.1); SODIUM LEVEL 140 MEQ/L (136-145); TOTAL PROTEIN 6.6 GM/DL (6.4-8.2)
== END ==
LOC: M SFHCADAM 07:49
PROVIDERS: ATTEND Physician Assistant Medical
DX: L03.115 Cellulitis of right lower limb (principal); E11.9 Type 2 diabetes mellitus without complications; E55.9 Vitamin D deficiency, unspecified; E78.1 Pure hyperglyceridemia

== ENCOUNTER → 2021-05-10 | Outpatient (REF) | payer MEDICAID ==
[~2021-05-10] MED LIST changes: -FENO200C PO; +FENO200C19 PO
[2021-05-10 13:57] LABS: ALBUMIN 3.6 GM/DL (3.2-5.2); ALT/SGPT 68 U/L (12-78); BILIRUBIN,TOTAL 0.3 MG/DL (0.2-1.0); BLOOD UREA NITROGEN 13 MG/DL (7-18); CALCIUM LEVEL 9.9 MG/DL (8.5-10.1); CARBON DIOXIDE LEVEL 27 MEQ/L (21-32); CHLORIDE LEVEL 107 MEQ/L (98-107); CHOLESTEROL LEVEL 112 MG/DL (<200); CHOLESTEROL RISK RATIO 4.307 (<5); CREATININE FOR GFR 0.73 MG/DL (0.55-1.30); GLOMERULAR FILTRATION RATE > 60.0 (>58); GLUCOSE, FASTING 172 MG/DL (70-100); HDL CHOLESTEROL 26 MG/DL (>40); LDL CHOLESTEROL 37 MG/DL (<100); NON-HDL-C 86 MG/DL; POTASSIUM SERUM 4.3 MEQ/L (3.5-5.1); SODIUM LEVEL 139 MEQ/L (136-145); TOTAL PROTEIN 6.9 GM/DL (6.4-8.2); TRIGLYCERIDES LEVEL 244 MG/DL (<150)
[2021-05-10 13:58] LABS: TOTAL 25(OH) VITAMIN D 44.3 NG/ML (30.0-100.0)
[2021-05-10 14:49] LABS: HEMOGLOBIN A1c 7.2 %
== END ==
LOC: M SFHCADAM 11:13
PROVIDERS: ATTEND Physician Assistant Medical
DX: E03.9 Hypothyroidism, unspecified (principal); E78.1 Pure hyperglyceridemia; E66.01 Morbid (severe) obesity due to excess calories; E55.9 Vitamin D deficiency, unspecified; E11.9 Type 2 diabetes mellitus without complications

== ENCOUNTER → 2021-08-17 | Outpatient (REF) | payer MEDICAID ==
[2021-08-17 13:17] LABS: BLOOD UREA NITROGEN 10 MG/DL (7-18); CALCIUM LEVEL 10.2 MG/DL (8.5-10.1); CARBON DIOXIDE LEVEL 24 MEQ/L (21-32); CHLORIDE LEVEL 108 MEQ/L (98-107); CREATININE FOR GFR 0.76 MG/DL (0.55-1.30); GLOMERULAR FILTRATION RATE > 60.0 (>58); GLUCOSE, FASTING 156 MG/DL (70-100); POTASSIUM SERUM 4.2 MEQ/L (3.5-5.1); SODIUM LEVEL 142 MEQ/L (136-145)
== END ==
LOC: M SFHCADAM 08:22
PROVIDERS: ATTEND Physician Assistant Medical
DX: Z01.818 Encounter for other preprocedural examination (principal); K11.20 Sialoadenitis, unspecified

== ENCOUNTER → 2021-08-17 | Outpatient (CLI) | payer MEDICAID ==
[2021-08-17 13:18] LABS: BLOOD UREA NITROGEN 10 MG/DL (7-18); CREATININE FOR GFR 0.83 MG/DL (0.55-1.30); GLOMERULAR FILTRATION RATE > 60.0 (>58)
== END ==
LOC: M ADAMS 09:15
PROVIDERS: ATTEND Otolaryngology
DX: Z01.812 Encounter for preprocedural laboratory examination (principal)

== ENCOUNTER → 2021-08-20 | Outpatient (CLI) | payer MEDICAID | LOC: M LABSMTC 10:08 | PROVIDERS: ATTEND Anesthesiology | DX: Z01.812 Encounter for preprocedural laboratory examination (principal); Z20.822 Contact with and (suspected) exposure to COVID-19 ==

== ENCOUNTER → 2021-08-23 | Outpatient (CLI) | payer MEDICAID ==
[~2021-08-23] MED LIST changes: +IBUP-1114 PO; +LR 1,000 ML IV SCH; +MIDAZOLAM INJ 2MG/2ML VIAL (J2250 PER 1MG) As Ordered ONE; +PROHANCE 279.3MG/ML 15ML VIAL As Ordered ONE; +PROHANCE 279.3MG/ML 5ML VIAL As Ordered ONE; +TRUL10IN SC
[2021-08-23 12:40] VITALS: BP 128/70
== END ==
LOC: M RAD 09:17
PROVIDERS: ATTEND Otolaryngology
DX: K11.20 Sialoadenitis, unspecified (principal)
CPT/HCPCS: 70543; A9576; J2250

== ENCOUNTER → 2021-09-13 | Outpatient (CLI) | payer MEDICAID ==
[~2021-09-13] MED LIST changes: -LR 1,000 ML IV SCH; -MIDAZOLAM INJ 2MG/2ML VIAL (J2250 PER 1MG) As Ordered ONE; -PROHANCE 279.3MG/ML 15ML VIAL As Ordered ONE; -PROHANCE 279.3MG/ML 5ML VIAL As Ordered ONE
== END ==
LOC: M WHC 11:54
PROVIDERS: ATTEND Physician Assistant Medical
DX: Z12.31 Encounter for screening mammogram for malignant neoplasm of breast (principal); Z78.0 Asymptomatic menopausal state; Z85.42 Personal history of malignant neoplasm of other parts of uterus

== ENCOUNTER → 2021-11-13 | Outpatient (REF) | payer MEDICAID ==
[2021-11-13 13:42] LABS: HEMOGLOBIN A1c 6.8 %
[2021-11-13 14:18] LABS: ALBUMIN 3.6 GM/DL (3.2-5.2); ALT/SGPT 67 U/L (12-78); BILIRUBIN,TOTAL 0.2 MG/DL (0.2-1.0); BLOOD UREA NITROGEN 12 MG/DL (7-18); CALCIUM LEVEL 9.8 MG/DL (8.5-10.1); CARBON DIOXIDE LEVEL 23 MEQ/L (21-32); CHLORIDE LEVEL 105 MEQ/L (98-107); CHOLESTEROL LEVEL 113 MG/DL (<200); CHOLESTEROL RISK RATIO 3.766 (<5); CREATININE FOR GFR 0.84 MG/DL (0.55-1.30); GLOMERULAR FILTRATION RATE > 60.0 (>58); GLUCOSE, FASTING 205 MG/DL (70-100); HDL CHOLESTEROL 30 MG/DL (>40); LDL CHOLESTEROL 33 MG/DL (<100); NON-HDL-C 83 MG/DL; POTASSIUM SERUM 4.2 MEQ/L (3.5-5.1); SODIUM LEVEL 137 MEQ/L (136-145); TOTAL PROTEIN 6.9 GM/DL (6.4-8.2); TRIGLYCERIDES LEVEL 252 MG/DL (<150)
[2021-11-13 14:45] LABS: TOTAL 25(OH) VITAMIN D 41.2 NG/ML (30.0-100.0)
== END ==
LOC: M SFHCADAM 10:02
PROVIDERS: ATTEND Physician Assistant Medical
DX: E03.9 Hypothyroidism, unspecified (principal); E78.1 Pure hyperglyceridemia; E55.9 Vitamin D deficiency, unspecified; E11.9 Type 2 diabetes mellitus without complications

== ENCOUNTER → 2021-11-14 | Outpatient (REF) | payer MEDICAID ==
[2021-11-15 14:40] LABS: MALB URINE SIEMENS 79.1 MG/L; MAU/CREAT RATIO 65.3 MCG/MG (0.0-30.0)
== END ==
LOC: M SFHCADAM 12:59
PROVIDERS: ATTEND Physician Assistant Medical
DX: E03.9 Hypothyroidism, unspecified (principal); E78.1 Pure hyperglyceridemia; E55.9 Vitamin D deficiency, unspecified; E11.9 Type 2 diabetes mellitus without complications

== ENCOUNTER → 2022-05-23 | Outpatient (REF) | payer MEDICAID ==
[~2022-05-23] MED LIST changes: -FENO200C19 PO; +FENO200C24 PO
[2022-05-23 13:02] LABS: BASO % 0.4 % (0.0-1.0); EOS # 0.1 10^3/uL (0.0-0.5); HEMOGLOBIN 12.8 g/dl (12.0-15.5); LYMPH # 1.8 10^3/uL (1.5-5.0); LYMPH % 40.3 % (24.0-44.0); MEAN CORPUSCULAR HEMOGLOBIN 27.8 pg (27.0-33.0); MEAN CORPUSCULAR HGB CONC 31.2 g/dl (32.0-36.5); MEAN CORPUSCULAR VOLUME 88.9 fl (80.0-96.0); MONO # 0.2 10^3/uL (0.0-0.8); MONO % 5.1 % (2.0-8.0); NEUTROPHILS # 2.3 10^3/uL (1.5-8.5); NEUTROPHILS % 51.1 % (36.0-66.0); PLATELET COUNT, AUTOMATED 238 10^3/uL (150-450); RED BLOOD COUNT 4.61 10^6/uL (4.00-5.40); WHITE BLOOD COUNT 4.5 10^3/uL (4.0-10.0)
[2022-05-23 13:15] LABS: ALBUMIN 3.6 G/DL (3.2-5.2); ALKALINE PHOSPHATASE 54 U/L (46-116); ALT/SGPT 63 U/L (7.0-40); AST/SGOT 38 U/L (<34); BILIRUBIN,TOTAL 0.3 MG/DL (0.3-1.2); BLOOD UREA NITROGEN 10 MG/DL (9-23); CALCIUM LEVEL 9.8 MG/DL (8.5-10.1); CARBON DIOXIDE LEVEL 24 MMOL/L (20-31); CHLORIDE LEVEL 105 MMOL/L (98-107); CHOLESTEROL LEVEL 103 MG/DL (<200); CHOLESTEROL RISK RATIO 3.69 (<5); CREATININE FOR GFR 0.57 MG/DL (0.55-1.30); GLOMERULAR FILTRATION RATE > 60.0 (>58); GLUCOSE, FASTING 206 MG/DL (60-100); HDL CHOLESTEROL 27.9 MG/DL (>40); LDL CHOLESTEROL 36.3 MG/DL (<100); NON-HDL-C 75.1 MG/DL; POTASSIUM SERUM 4.3 MMOL/L (3.5-5.1); SODIUM LEVEL 139 MMOL/L (136-145); THYROID STIMULATING HORMONE 3.883 uIU/ML (0.55-4.78); TOTAL 25(OH) VITAMIN D 56.5 NG/ML (20.0-100.0); TOTAL PROTEIN 6.3 G/DL (5.7-8.2); TRIGLYCERIDES LEVEL 194 MG/DL (<150)
[2022-05-23 14:13] LABS: HEMOGLOBIN A1c 7.1 % (4.0-6.0)
== END ==
LOC: M SFHCADAM 10:08
PROVIDERS: ATTEND Physician Assistant Medical
DX: E03.9 Hypothyroidism, unspecified (principal); E78.1 Pure hyperglyceridemia; E55.9 Vitamin D deficiency, unspecified; E11.9 Type 2 diabetes mellitus without complications

== ENCOUNTER → 2022-12-16 | Outpatient (CLI) | payer MEDICAID ==
[~2022-12-16] MED LIST changes: +ASPI-655 PO; -ASPI1CHW3 PO
== END ==
LOC: M WHC 12:01
PROVIDERS: ATTEND Physician Assistant Medical
DX: Z12.31 Encounter for screening mammogram for malignant neoplasm of breast (principal)

== ENCOUNTER → 2023-05-26 | Outpatient (REF) | payer MEDICAID ==
[2023-05-26 16:34] LABS: BASO % 0.6 % (0.0-1.0); EOS # 0.1 10^3/uL (0.0-0.5); EOS % 1.4 % (0.0-3.0); HEMATOCRIT 41.5 % (36.0-47.0); HEMOGLOBIN 13.8 g/dl (12.0-15.5); LYMPH # 1.8 10^3/uL (1.5-5.0); LYMPH % 35.7 % (24.0-44.0); MEAN CORPUSCULAR HEMOGLOBIN 29.2 pg (27.0-33.0); MEAN CORPUSCULAR HGB CONC 33.3 g/dl (32.0-36.5); MEAN CORPUSCULAR VOLUME 87.7 fl (80.0-96.0); MONO # 0.4 10^3/uL (0.0-0.8); MONO % 7.6 % (2.0-8.0); NEUTROPHILS # 2.8 10^3/uL (1.5-8.5); NEUTROPHILS % 54.3 % (36.0-66.0); PLATELET COUNT, AUTOMATED 283 10^3/uL (150-450); RED BLOOD COUNT 4.73 10^6/uL (4.00-5.40); WHITE BLOOD COUNT 5.2 10^3/uL (4.0-10.0)
[2023-05-26 16:41] LABS: ALBUMIN 3.8 G/DL (3.2-5.2); ALKALINE PHOSPHATASE 55 U/L (46-116); ALT/SGPT 63 U/L (7.0-40); AST/SGOT 37 U/L (<34); BILIRUBIN,TOTAL 0.3 MG/DL (0.3-1.2); BLOOD UREA NITROGEN 13 MG/DL (9-23); CARBON DIOXIDE LEVEL 24 MMOL/L (20-31); CHLORIDE LEVEL 105 MMOL/L (98-107); CHOLESTEROL LEVEL 107 MG/DL (<200); CHOLESTEROL RISK RATIO 3.76 (<5); CREATININE FOR GFR 0.58 MG/DL (0.55-1.30); GLOMERULAR FILTRATION RATE > 60.0 (>58); GLUCOSE, FASTING 134 MG/DL (60-100); HDL CHOLESTEROL 28.4 MG/DL (>40); LDL CHOLESTEROL 25.8 MG/DL (<100); NON-HDL-C 78.6 MG/DL; POTASSIUM SERUM 4.1 MMOL/L (3.5-5.1); SODIUM LEVEL 139 MMOL/L (136-145); TOTAL PROTEIN 6.8 G/DL (5.7-8.2); TRIGLYCERIDES LEVEL 264 MG/DL (<150)
[2023-05-26 16:43] LABS: FREE T4 1.32 NG/DL (0.89-1.76)
[2023-05-26 16:44] LABS: TOTAL 25(OH) VITAMIN D 47.9 NG/ML (20.0-100.0)
[2023-05-26 16:50] LABS: HEMOGLOBIN A1c 6.1 % (4.0-6.0)
== END ==
LOC: M SFHCADAM 14:23
PROVIDERS: ATTEND Physician Assistant Medical
DX: E03.9 Hypothyroidism, unspecified (principal); E78.1 Pure hyperglyceridemia; E66.01 Morbid (severe) obesity due to excess calories; E55.9 Vitamin D deficiency, unspecified; R63.4 Abnormal weight loss

== ENCOUNTER 2023-10-08 06:53 | Day surgery (SDC) | payer MEDICAID ==
[~2023-10-08] VITALS: Ht 170.2 cm; Wt 113.9 kg
[~2023-10-08 06:53] MED LIST changes: +DULA3PEN; +LEVO200T4 PO; +METF500T13 PO; +OMEG10002 PO
[2023-10-08] MEDS: NS 1,000 ML IV ONE (07:27)
[2023-10-08] MEDS ORDERED: fentaNYL 100 MCG/2 ML INJECTION As Ordered ONE (08:17)
[2023-10-08] MEDS ORDERED: LIDOCAINE 2% 100MG/5ML SDV (FOR ANES.) As Ordered ONE (08:20)
[2023-10-08] MEDS ORDERED: propofoL 200 MG/20 ML VIAL As Ordered ONE (08:20)
[2023-10-08 09:29] VITALS: TEMP 98.5
[2023-10-08 09:46] VITALS: BP 123/68; O2SAT 95
== END 2023-10-08 09:53 | disposition home or self-care (01) ==
LOC: M OPP 06:53
PROVIDERS: ATTEND Internal Medicine Gastroenterology
DX: Z12.11 Encounter for screening for malignant neoplasm of colon (principal); K57.30 Diverticulosis of large intestine without perforation or abscess without bleeding; R11.2 Nausea with vomiting, unspecified; E03.9 Hypothyroidism, unspecified; E11.9 Type 2 diabetes mellitus without complications; Z79.02 Long term (current) use of antithrombotics/antiplatelets; Z79.1 Long term (current) use of non-steroidal anti-inflammatories (NSAID); Z79.82 Long term (current) use of aspirin; Z79.84 Long term (current) use of oral hypoglycemic drugs; Z79.890 Hormone replacement therapy; Z79.899 Other long term (current) drug therapy; Z88.1 Allergy status to other antibiotic agents; Z88.2 Allergy status to sulfonamides; Z88.5 Allergy status to narcotic agent
CPT/HCPCS: 43235; 45378; J3010

== ENCOUNTER → 2024-02-12 | Outpatient (REF) | payer MEDICAID ==
[2024-02-12 13:32] LABS: BASO % 0.8 % (0.0-1.0); EOS # 0.1 10^3/uL (0.0-0.5); EOS % 2.9 % (0.0-3.0); HEMATOCRIT 38.1 % (36.0-47.0); HEMOGLOBIN 12.8 g/dl (12.0-15.5); LYMPH # 1.7 10^3/uL (1.5-5.0); LYMPH % 43.2 % (24.0-44.0); MEAN CORPUSCULAR HEMOGLOBIN 29.3 pg (27.0-33.0); MEAN CORPUSCULAR HGB CONC 33.6 g/dl (32.0-36.5); MEAN CORPUSCULAR VOLUME 87.2 fl (80.0-96.0); MONO # 0.3 10^3/uL (0.0-0.8); MONO % 6.8 % (2.0-8.0); NEUTROPHILS # 1.8 10^3/uL (1.5-8.5); NEUTROPHILS % 45.8 % (36.0-66.0); PLATELET COUNT, AUTOMATED 271 10^3/uL (150-450); RED BLOOD COUNT 4.37 10^6/uL (4.00-5.40); WHITE BLOOD COUNT 3.8 10^3/uL (4.0-10.0)
[2024-02-12 13:54] LABS: ALBUMIN 3.6 G/DL (3.2-5.2); ALKALINE PHOSPHATASE 67 U/L (35-104); ALT/SGPT 45 U/L (7.0-40); AST/SGOT 26 U/L (<34); BILIRUBIN,TOTAL 0.3 MG/DL (0.3-1.2); BLOOD UREA NITROGEN 15 MG/DL (9-23); CALCIUM LEVEL 10.5 MG/DL (8.5-10.1); CARBON DIOXIDE LEVEL 24 MMOL/L (20-31); CHLORIDE LEVEL 108 MMOL/L (98-107); CHOLESTEROL LEVEL 125 MG/DL (<200); CHOLESTEROL RISK RATIO 3.79 (<5); CREATININE FOR GFR 0.65 MG/DL (0.55-1.30); GLOMERULAR FILTRATION RATE > 60.0 (>58); GLUCOSE, FASTING 169 MG/DL (60-100); HDL CHOLESTEROL 32.9 MG/DL (>40); LDL CHOLESTEROL 58.7 MG/DL (<100); NON-HDL-C 92.1 MG/DL; SODIUM LEVEL 140 MMOL/L (136-145); TOTAL PROTEIN 6.6 G/DL (5.7-8.2); TRIGLYCERIDES LEVEL 167 MG/DL (<150)
[2024-02-12 13:55] LABS: FREE T4 1.68 NG/DL (0.89-1.76); TOTAL 25(OH) VITAMIN D 42.8 NG/ML (20.0-100.0)
== END ==
LOC: M SFHCADAM 10:54
PROVIDERS: ATTEND Physician Assistant Medical
DX: E11.9 Type 2 diabetes mellitus without complications (principal); E03.9 Hypothyroidism, unspecified; E78.1 Pure hyperglyceridemia; E66.01 Morbid (severe) obesity due to excess calories; E55.9 Vitamin D deficiency, unspecified; K76.0 Fatty (change of) liver, not elsewhere classified

== ENCOUNTER → 2024-09-17 | Outpatient (CLI) | payer MEDICAID | LOC: M WHC 07:55 | PROVIDERS: ATTEND Physician Assistant Medical | DX: K76.0 Fatty (change of) liver, not elsewhere classified (principal) ==

== ENCOUNTER → 2024-10-12 | Outpatient (CLI) | payer MEDICAID | LOC: M WHC 13:56 | PROVIDERS: ATTEND Physician Assistant Medical | DX: Z12.31 Encounter for screening mammogram for malignant neoplasm of breast (principal); R92.313 Mammographic fatty tissue density, bilateral breasts ==

== ENCOUNTER → 2024-11-25 | Outpatient (CLI) | payer MEDICAID ==
[~2024-11-25] MED LIST changes: -ASPI-655 PO; +ASPI-737 PO
== END ==
LOC: M PLAIMG 13:15
PROVIDERS: ATTEND Physician Assistant Medical
DX: E11.9 Type 2 diabetes mellitus without complications (principal); R01.1 Cardiac murmur, unspecified; I08.8 Other rheumatic multiple valve diseases